=== PATIENT | female | born 1950 | race Hispanic/Latino ===

== ENCOUNTER 2018-01-26 08:41 | Day surgery (SDC) | payer MEDICARE ==
[2018-01-26] MEDS ORDERED: NACL 0.9% 1000 ML 1,000 ML IV SCH (10:00)
[2018-01-26] MEDS ORDERED: DIPRIVAN 10 MG/ML IV ONE (12:35)
--- NOTE | 2018-01-26 12:57 | Short Stay Summary ---
Short Stay Documentation Date of service: 01/26/18 Narrative H&P: The patient presents for EGD for evaluation of an abnormal CT scan revealing antral thickening and cirrhosis of the liver - History Past Medical History: arthritis, diabetes, hypertension, liver disease Past Surgical History: tonsillectomy, PTCA (tubal ligation) Social history: no significant social history, , lives with family, no smoking, no alcohol abuse, no prescription drug abuse - Allergies and Medications Current Medications: Allergies No Known Allergies Allergy (Verified 01/26/18 09:53) Home Medications Medication Instructions Recorded Confirmed Last Taken Type Lisinopril [Zestril TAB] 12.5 - 20 mg PO QDAY 11/14/14 11/14/14 01/25/18 History metFORMIN [Glucophage] 500 mg PO BID 11/14/14 11/14/14 01/25/18 History Furosemide 40 mg PO DAILY 01/26/18 01/26/18 01/25/18 History Januvia 50 mg PO DAILY 01/26/18 01/26/18 01/25/18 History Magnesium 25 mg PO DAILY 01/26/18 01/26/18 01/25/18 History Potassium 20 meq PO DAILY 01/26/18 01/26/18 01/25/18 History Vitamin D3 250 mg PO BID 01/26/18 01/26/18 01/25/18 History Active Medications Sodium Chloride (Nacl 0.9% 1000 Ml) 1,000 mls @ 50 mls/hr IV DIRECT CASTILLO Last Admin: 01/26/18 10:27 Dose: 50 mls/hr - Physical exam General appearance: no acute distress, well-nourished, obese Integumentary: no rash, no growths, no abnormal pigmentation HEENT: Atraumatic, PERRLA, EOMI, Mucous membr. moist/pink Lungs: Clear to auscultation, Normal air movement Breasts: deferred Heart: Regular rate, Normal S1, Normal S2, No murmurs Gastrointestinal: normoactive bowel sounds, tenderness, distended (1-2 plus ascites), no masses, no guarding, no hepatomegaly, no splenomegaly, obese Female Genitourinary: deferred Rectal Exam: deferred Extremities: no ischemia, pulses intact, pulses symmetrical, normal temperature , normal color, Full ROM, abnormal (2 plus pitting edema bilaterally) Neurological: Normal gait, Normal speech, Strength at 5/5 X4 ext, Normal tone, Sensation intact, Cranial nerves 3-12 NL - Brief post op/procedure progress note Date of procedure: 01/26/18 Findings: see dictation Estimated blood loss: none Pathology: list (antral biopsies for h.pylori) Specimen disposition: to lab Condition: stable - Disposition Condition at discharge: Good Disposition: DC-01 TO HOME OR SELFCARE - Discharge Diagnoses (1) Abnormal CT of the abdomen Status: Acute (2) Cirrhosis of liver Status: Acute Short Stay Discharge Plan Activity: other (no driving for 24 hours) Weight Bearing Status: Weight Bear as Tolerated Diet: low salt Follow up with: ADITHYA FINE PA [Primary Care Provider] - 7 Days Prescriptions: Omeprazole 40 mg PO DAILY #30 capsule.
--- NOTE | 2018-01-26 13:04 | Operative Report ---
Operative Report Operative Report: Date of procedure: 01/26/2018 Procedure: Esophagogastroduodenoscopy with antral biopsies for H. pylori Preprocedure diagnosis: Abnormal CT scan of the abdomen revealing a thickened antrum, cirrhosis and ascites. Post procedure diagnosis: Fairly severe erosive gastritis. Mild erosive duodenitis. 3+ esophageal varices. Endoscopist: Dr. Huang Anesthesia: Monitored anesthesia care per anesthesia department Medications: Propofol per anesthesia Estimated blood loss: Scant After careful discussion of the nature and purpose of the procedure as well as details the technique risks benefits and alternatives consent was obtained. The patient was placed in the left lateral decubitus position and medicated per anesthesia. The tip of the [employer] EQ 570 video scope was passed per orum under direct vision into the esophagus and advanced into the stomach and descending duodenum. The descending duodenum and the duodenal bulb revealed scattered erosions. The pylorus was symmetrical and normal. The scope was withdrawn into the stomach and the stomach then gently insufflated with air. The antrum revealed severe background inflammation and multiple erosions. 2 biopsies were taken in the prepyloric area for H. pylori testing. The stomach was further insufflated and the scope was then retroflexed and partially withdrawn. The cardia, fundus, and body of the stomach were within normal limits and easily distensible. There were no varices in the cardia or fundus. The scope was then withdrawn in the forward position. The esophagogastric junction was at 40 cm. The distal esophagus revealed 3+ varices. No stigmata of recent bleeding. The procedure was was well tolerated and the patient was observed in recovery. Impressions: 3+ esophageal varices. Severe erosive antral gastritis. Mild erosive duodenitis. Plan: Await pathology for H. pylori. Begin omeprazole. She will need repeat endoscopy for banding of varices at some point which was not discussed prior to this endoscopy. Office follow-up in the next 2 weeks to discuss the status of her liver disease. Electronically signed: Aj Huang MD
--- NOTE | 2018-01-26 13:06 | Anesthesia Consultation ---
Anesthesia Consult and Med Hx Date of service: 01/26/18 - Airway Anesthetic Teeth Evaluation: Good ROM Head & Neck: Adequate Mental/Hyoid Distance: Adequate Mallampati Class: Class II Intubation Access Assessment: Probably Good - Pulmonary Exam CTA: Yes - Cardiac Exam Cardiac Exam: RRR - Pre-Operative Health Status ASA Pre-Surgery Classification: ASA3 Proposed Anesthetic Plan: MAC - Cardiovascular System Hx Hypertension: Yes - Gastrointestinal Hx Gastroesophageal Reflux Disease: Yes - Endocrine Hx Cirrhosis: Yes Hx Liver Disease: Yes Hx Insulin Dependent Diabetes: Yes (insulin pump ) - Hematic Hx Anemia: Yes
--- NOTE | 2018-01-26 13:07 | Anesthesia Day of Surgery ---
Anesthesia Day of Surgery - Day of Surgery Patient Examined: Yes Patient H&P Reviewed: Yes Patient is NPO: Yes
[2018-01-26 14:18] VITALS: BP 142/76
== END 2018-01-26 08:42 | disposition home or self-care (01) ==
LOC: GIO 08:41
PROVIDERS: ATTEND Internal Medicine Gastroenterology
DX: K29.50 Unspecified chronic gastritis without bleeding (principal); K70.31 Alcoholic cirrhosis of liver with ascites; K29.80 Duodenitis without bleeding; I85.00 Esophageal varices without bleeding; M19.90 Unspecified osteoarthritis, unspecified site; I10 Essential (primary) hypertension; K21.9 Gastro-esophageal reflux disease without esophagitis; E11.01 Type 2 diabetes mellitus with hyperosmolarity with coma; E66.9 Obesity, unspecified; Z68.32 Body mass index [BMI] 32.0-32.9, adult; Z91.19 Patient's noncompliance with other medical treatment and regimen; Z79.84 Long term (current) use of oral hypoglycemic drugs; Z90.49 Acquired absence of other specified parts of digestive tract; Z98.51 Tubal ligation status; Z86.2 Personal history of diseases of the blood and blood-forming organs and certain disorders involving the immune mechanism; Z79.899 Other long term (current) drug therapy; Z98.890 Other specified postprocedural states
CPT/HCPCS: 43239; 82962; 88305; 88342; J2704; J7030

== ENCOUNTER 2018-05-06 09:44 | Day surgery (SDC) | payer MEDICARE ==
[2018-05-06 11:04] LABS: INR 1.06 (0.87-1.13); Partial Thromboplastin Time 27.8 Sec. (24.2-36.6)
[2018-05-06] MEDS ORDERED: XYLOCAINE 1% 20 mL ONE (11:44)
[2018-05-06] MEDS ORDERED: ALBURX 25% (ALBUMIN) IV PRN (11:57)
--- NOTE | 2018-05-06 11:57 | Short Stay Summary ---
Short Stay Documentation Date of service: 05/06/18 - History Principal diagnosis: ascites H&P: obtained from office Past Medical History: liver disease - Allergies and Medications Current Medications: Allergies No Known Allergies Allergy (Verified 01/26/18 09:53) Home Medications Medication Instructions Recorded Confirmed Last Taken Type Furosemide 40 mg PO DAILY 01/26/18 05/06/18 05/06/18 06:30 History Januvia 50 mg PO DAILY 01/26/18 05/06/18 05/06/18 06:30 History Famotidine [Pepcid] 20 mg PO DAILY #30 tablet 03/14/18 05/06/18 05/06/18 06:30 Rx Prochlorperazine [Compazine] 10 mg PO Q6H PRN #20 tablet 03/14/18 05/06/18 Unknown Rx Spironolactone 25 mg PO DAILY #30 tablet 03/14/18 05/06/18 04/29/18 06:30 Rx - Physical exam General appearance: no acute distress Gastrointestinal: distended - Brief post op/procedure progress note Date of procedure: 05/06/18 Pre-op diagnosis: ascites Post-op diagnosis: same Procedure: US paracentesis Anesthesia: local Findings: large ascites Surgeon: KAYE BROWN Pathology: none Specimen disposition: discarded Condition: stable - Disposition Condition at discharge: Good Disposition: -01 TO HOME OR SELFCARE Short Stay Discharge Plan Follow up with: PRIMARY CARE, [Primary Care Provider] - 7 Days
--- NOTE | 2018-05-06 13:24 | Ultrasound Report ---
ULTRASOUND PARACENTESIS HISTORY: Ascites. DESCRIPTION OF PROCEDURE: A time out was performed. Informed consent was obtained. Sterile technique was utilized. Using ultrasound guidance, a 5 Croatian centesis needle was advanced into the peritoneal space. There was spontaneous return of clear yellow fluid. 14 L of fluid was drained. 120 cc of fluid was sent to laboratory for analysis. No complications. IMPRESSION: Successful ultrasound-guided paracentesis.
[2018-05-06 15:34] VITALS: BP 137/62
== END 2018-05-06 16:21 | disposition home or self-care (01) ==
LOC: CATHLABREC 09:44
PROVIDERS: ATTEND Internal Medicine Gastroenterology
DX: R18.8 Other ascites (principal); K21.9 Gastro-esophageal reflux disease without esophagitis; I10 Essential (primary) hypertension; E11.9 Type 2 diabetes mellitus without complications; D64.9 Anemia, unspecified; Z79.899 Other long term (current) drug therapy; Z98.51 Tubal ligation status; Z96.41 Presence of insulin pump (external) (internal); Z98.890 Other specified postprocedural states
CPT/HCPCS: 36415; 49083; 85610; 85730; 96365; P9047

== ENCOUNTER 2018-05-21 07:45 | Day surgery (SDC) | payer MEDICARE ==
[2018-05-21] MEDS ORDERED: XYLOCAINE 1% 20 mL ONE (10:47)
--- NOTE | 2018-05-21 13:02 | Ultrasound Report ---
ULTRASOUND-GUIDED PARACENTESIS INDICATION: Ascites. COMPARISON: 05/06/2018. FINDINGS: After explaining the risk and benefits to the patient, written informed consent obtained. Using ultrasound guidance, an appropriate skin site in the right lower quadrant marked. Skin prepped and draped in the usual sterile fashion. 1% Xylocaine used for local anesthesia. Using ultrasound guidance, a 5 Emirati Yueh catheter was placed into the fluid collection and 15.9 L of straw-colored fluid aspirated. No sample sent to laboratory. Catheter removed and hemostasis achieved. Patient tolerated the procedure well and left the radiology department in stable condition. CONCLUSION: Ultrasound guided paracentesis, as described above. Post procedure IV albumin to be given. Dr. Love present for and performed the entire procedure. Thank you for the opportunity to participate in this patient's care.
[2018-05-21] MEDS ORDERED: ALBURX 25% (ALBUMIN) IV ONE (13:30)
[2018-05-23 11:46] VITALS: BP 142/65
== END 2018-05-21 15:30 | disposition home or self-care (01) ==
LOC: CATHLABREC 07:45 → EDSTATUS 09:00 → CATHLABREC 15:30
PROVIDERS: ATTEND Internal Medicine Gastroenterology
DX: K70.31 Alcoholic cirrhosis of liver with ascites (principal); K75.81 Nonalcoholic steatohepatitis (NASH); I85.00 Esophageal varices without bleeding; E11.01 Type 2 diabetes mellitus with hyperosmolarity with coma; I10 Essential (primary) hypertension; K21.9 Gastro-esophageal reflux disease without esophagitis; Z98.51 Tubal ligation status; Z98.890 Other specified postprocedural states; Z79.899 Other long term (current) drug therapy; Z91.19 Patient's noncompliance with other medical treatment and regimen; Z90.49 Acquired absence of other specified parts of digestive tract; Z86.2 Personal history of diseases of the blood and blood-forming organs and certain disorders involving the immune mechanism
CPT/HCPCS: 49083; 96365; 96366; P9047

== ENCOUNTER 2018-06-10 11:51 | Day surgery (SDC) | payer MEDICARE ==
[2018-06-10 12:40] LABS: INR 0.95 (0.87-1.13)
[2018-06-10 12:41] LABS: Partial Thromboplastin Time 27.7 Sec. (24.2-36.6)
[2018-06-10] MEDS ORDERED: ALBURX 25% (ALBUMIN) IV PRN (14:16)
--- NOTE | 2018-06-10 14:16 | Short Stay Summary ---
Short Stay Documentation Date of service: 06/10/18 - History Principal diagnosis: ascites Past Medical History: liver disease, renal failure - Allergies and Medications Current Medications: Allergies No Known Allergies Allergy (Verified 01/26/18 09:53) Home Medications Medication Instructions Recorded Confirmed Last Taken Type Furosemide 40 mg PO DAILY 01/26/18 06/10/18 06/10/18 08:00 History Januvia 50 mg PO DAILY 01/26/18 06/10/18 06/09/18 History 50mg Famotidine [Pepcid] 20 mg PO DAILY #30 tablet 03/14/18 06/10/18 06/10/18 08:00 Rx Spironolactone 25 mg PO DAILY #30 tablet 03/14/18 06/10/18 06/10/18 08:00 Rx - Physical exam General appearance: no acute distress Gastrointestinal: distended - Brief post op/procedure progress note Date of procedure: 06/10/18 Pre-op diagnosis: ascites Post-op diagnosis: same Procedure: US paracentesis Anesthesia: local Findings: large ascites Surgeon: KAYE BROWN Estimated blood loss: none Pathology: none Specimen disposition: discarded Condition: stable - Disposition Condition at discharge: Good Disposition: DC-01 TO HOME OR SELFCARE Short Stay Discharge Plan Follow up with: ADITHYA FINE PA [Primary Care Provider] - 7 Days
[2018-06-10 17:11] VITALS: BP 156/71
--- NOTE | 2018-06-11 10:33 | Ultrasound Report ---
ULTRASOUND PARACENTESIS HISTORY: Ascites. DESCRIPTION OF PROCEDURE: A time out was performed. Informed consent was obtained. Sterile technique was utilized. Using ultrasound guidance, a 5 Setswana centesis needle was advanced into the peritoneal space. There was spontaneous return of clear yellow fluid. 15.9 L of fluid was drained. 120 cc of fluid was sent to laboratory for analysis. No complications. IMPRESSION: Successful ultrasound-guided paracentesis.
== END 2018-06-10 11:52 | disposition home or self-care (01) ==
LOC: CATHLABREC 11:51 → EDSTATUS 13:30
PROVIDERS: ATTEND Internal Medicine Gastroenterology
DX: R18.8 Other ascites (principal); K74.60 Unspecified cirrhosis of liver; K75.81 Nonalcoholic steatohepatitis (NASH); I85.00 Esophageal varices without bleeding; E11.01 Type 2 diabetes mellitus with hyperosmolarity with coma; I10 Essential (primary) hypertension; K21.9 Gastro-esophageal reflux disease without esophagitis; Z98.890 Other specified postprocedural states; Z98.51 Tubal ligation status; Z79.899 Other long term (current) drug therapy; Z91.19 Patient's noncompliance with other medical treatment and regimen; Z86.2 Personal history of diseases of the blood and blood-forming organs and certain disorders involving the immune mechanism
CPT/HCPCS: 36415; 49083; 85610; 85730; 96365; P9047

== ENCOUNTER 2018-06-22 06:47 | Day surgery (SDC) | payer MEDICARE ==
--- NOTE | 2018-05-21 15:45 | Short Stay Summary ---
Short Stay Documentation Date of service: 05/21/18 - History Principal diagnosis: Cirrhosis Past Medical History: liver disease - Allergies and Medications Current Medications: Allergies No Known Allergies Allergy (Verified 01/26/18 09:53) Home Medications Medication Instructions Recorded Confirmed Last Taken Type Furosemide 40 mg PO DAILY 01/26/18 05/06/18 05/21/18 History Januvia 50 mg PO DAILY 01/26/18 05/06/18 05/20/18 History Famotidine [Pepcid] 20 mg PO DAILY #30 tablet 03/14/18 05/21/18 05/21/18 Rx Prochlorperazine [Compazine] 10 mg PO Q6H PRN #20 tablet 03/14/18 05/21/18 Unknown Rx Spironolactone 25 mg PO DAILY #30 tablet 03/14/18 05/21/18 05/19/18 Rx - Physical exam General appearance: no acute distress Gastrointestinal: distended - Brief post op/procedure progress note Date of procedure: 05/21/18 Pre-op diagnosis: Ascites Post-op diagnosis: same Procedure: US guided paracentesis Anesthesia: local Findings: 15.9 L of yellow serous fluid removed. Surgeon: CARRILLO SNELL Estimated blood loss: none Specimen disposition: discarded Condition: stable - Disposition Condition at discharge: Good Disposition: DC-01 TO HOME OR SELFCARE Short Stay Discharge Plan Follow up with: PRIMARY CARE, [Primary Care Provider] - 7 Days
--- NOTE | 2018-06-22 08:24 | Anesthesia Day of Surgery ---
Anesthesia Day of Surgery - Day of Surgery Patient Examined: Yes Patient H&P Reviewed: Yes Patient is NPO: Yes Beta Blockers: No Cardiac Clearance: No Pulmonary Clearance: No
--- NOTE | 2018-06-22 08:25 | Anesthesia Consultation ---
Anesthesia Consult and Med Hx Date of service: 06/22/18 - Airway Anesthetic Teeth Evaluation: Good ROM Head & Neck: Adequate Mental/Hyoid Distance: Adequate Mallampati Class: Class III Intubation Access Assessment: Good - Pulmonary Exam CTA: No - Cardiac Exam Cardiac Exam: RRR - Pre-Operative Health Status ASA Pre-Surgery Classification: ASA3 Proposed Anesthetic Plan: MAC - Cardiovascular System Hx Hypertension: Yes - Central Nervous System Hx Psychiatric Problems: No - Gastrointestinal Hx Gastroesophageal Reflux Disease: Yes - Endocrine Hx Renal Disease: Yes Hx Cirrhosis: Yes Hx Liver Disease: Yes Hx Insulin Dependent Diabetes: Yes (insulin pump ) - Hematic Hx Anemia: Yes - Other Systems Hx Obesity: Yes
[2018-06-22] MEDS ORDERED: DIPRIVAN 10 MG/ML IV ONE ×2 (08:31)
[2018-06-22] MEDS ORDERED: XYLOCAINE 2% INFILTRATI ONE (08:32)
[2018-06-22] MEDS ORDERED: VERSED ONE (08:36)
[2018-06-22] MEDS ORDERED: NACL 0.9% 1000 ML 1,000 ML IV SCH (09:00)
--- NOTE | 2018-06-22 09:10 | Short Stay Summary ---
Short Stay Documentation Date of service: 06/22/18 Narrative H&P: The patient presents for EGD and banding of known, large esophageal varices. - History Past Medical History: diabetes, hypertension, liver disease (cirrhosis with ascites and varices secondary to TYLER) Past Surgical History: No surgical history Social history: , lives with family, no smoking, no alcohol abuse - Allergies and Medications Current Medications: Allergies No Known Allergies Allergy (Verified 01/26/18 09:53) Home Medications Medication Instructions Recorded Confirmed Last Taken Type Furosemide 40 mg PO DAILY 01/26/18 06/22/18 06/22/18 History Januvia 50 mg PO DAILY 01/26/18 06/22/18 06/22/18 History Famotidine [Pepcid] 20 mg PO DAILY #30 tablet 03/14/18 06/22/18 06/22/18 Rx Spironolactone 25 mg PO DAILY #30 tablet 03/14/18 06/22/18 06/22/18 Rx Januvia 50 mg PO DAILY 06/22/18 06/22/18 06/22/18 History Active Medications Sodium Chloride (Nacl 0.9% 1000 Ml) 1,000 mls @ 50 mls/hr IV DIRECT CASTILLO Last Admin: 06/22/18 08:31 Dose: 50 mls/hr Documented by: - Physical exam General appearance: no acute distress, well-nourished Integumentary: no rash, no growths, no abnormal pigmentation HEENT: Atraumatic, PERRLA, EOMI, Mucous membr. moist/pink Lungs: Clear to auscultation, Normal air movement Breasts: deferred Heart: Regular rate, Normal S1, Normal S2, No murmurs, Murmur, Gallops Gastrointestinal: no tenderness, no masses, no guarding, no organomegaly, no hepatomegaly, no splenomegaly, obese, other (probable 1-2 plus ascites.) Female Genitourinary: deferred Rectal Exam: deferred Extremities: no ischemia, pulses intact, pulses symmetrical, No edema, normal temperature, normal color, Full ROM Neurological: Normal gait, Normal speech, Strength at 5/5 X4 ext, Normal tone, Sensation intact, Cranial nerves 3-12 NL, Reflexes 2+ - Brief post op/procedure progress note Date of procedure: 06/22/18 Procedure: see dictated report Findings: see dictated report Estimated blood loss: none Pathology: none - Disposition Condition at discharge: Good Disposition: DC-01 TO HOME OR SELFCARE Short Stay Discharge Plan Activity: other (no driving for 24 hours) Weight Bearing Status: Full Weight Bearing Diet: low salt Follow up with: PRIMARY CARE, [Referring] - 7 Days
--- NOTE | 2018-06-22 09:14 | Operative Report ---
Operative Report Operative Report: Date of procedure: 06/22/2018 Procedure: Esophagogastroduodenoscopy with banding of esophageal varices Preprocedure diagnosis: Known esophageal varices, cirrhosis secondary to Zamor[place] Post procedure diagnosis: 3+ esophageal varices. Submucosal mass in the prepyloric antrum versus extrinsic compression Endoscopist: Dr. Huang Anesthesia: Monitored anesthesia care per anesthesia department Medications: Propofol per anesthesia Estimated blood loss: 0 After careful discussion of the nature and purpose of the procedure as well as details the technique risks benefits and alternatives consent was obtained. The patient was placed in the left lateral decubitus position and medicated per anesthesia. The tip of the [employer] EQ 570 video scope was passed per orum under direct vision into the esophagus and advanced into the stomach and descending duodenum. The descending duodenum the duodenal bulb and pylorus were symmetrical and normal. The scope was withdrawn into the stomach and the stomach then gently insufflated with air. The antrum revealed a 3 cm submucosal extrinsic impression versus submucosal mass. The stomach was further insufflated and the scope was then retroflexed and partially withdrawn. The cardia, fundus, and body of the stomach were within normal limits and easily distensible, there were no varices in the cardia. The scope was then withdrawn in the forward position. The esophagogastric junction was at 36 cm. There were 3+ varices in the distal esophagus with no stigmata of bleeding. Proximal esophagus was normal. The scope was transiently withdrawn and the banding device loaded. The scope was then reintroduced per orum under direct vision and advanced distally into the esophagus. 4 bands were placed circumferentially in the distal esophagus within 3 cm of the esophagogastric junction. No bleeding was encountered. The procedure was was well tolerated and the patient was observed in recovery. Impressions: 3+ distal esophageal varices. Status post banding 4. Extrinsic compression versus submucosal mass in the antrum. Plan: Repeat endoscopy in 2-3 months. Abdominal imaging by CT or MRI. Office follow-up next week. Electronically signed: Aj Huang MD
[2018-06-22 15:04] VITALS: BP 151/81
== END 2018-06-22 06:48 | disposition home or self-care (01) ==
LOC: GIO 06:47
PROVIDERS: ATTEND Internal Medicine Gastroenterology
DX: I85.00 Esophageal varices without bleeding (principal); K74.60 Unspecified cirrhosis of liver; K75.81 Nonalcoholic steatohepatitis (NASH); I10 Essential (primary) hypertension; E11.9 Type 2 diabetes mellitus without complications; K21.9 Gastro-esophageal reflux disease without esophagitis; E66.9 Obesity, unspecified; Z68.34 Body mass index [BMI] 34.0-34.9, adult; Z79.899 Other long term (current) drug therapy; Z98.890 Other specified postprocedural states; Z98.51 Tubal ligation status; Z86.2 Personal history of diseases of the blood and blood-forming organs and certain disorders involving the immune mechanism
CPT/HCPCS: 43244; 82962; J2250; J2704; J7030

== ENCOUNTER 2018-06-28 06:36 | Day surgery (SDC) | payer MEDICARE ==
--- NOTE | 2018-06-28 09:25 | Short Stay Summary ---
Short Stay Documentation Date of service: 06/28/18 - History Principal diagnosis: ascites Past Medical History: liver disease - Allergies and Medications Current Medications: Allergies No Known Allergies Allergy (Verified 01/26/18 09:53) Home Medications Medication Instructions Recorded Confirmed Last Taken Type Furosemide 40 mg PO DAILY 01/26/18 06/28/18 06/28/18 05:45 History Januvia 50 mg PO DAILY 01/26/18 06/28/18 06/28/18 05:45 History 50mg Famotidine [Pepcid] 20 mg PO DAILY #30 tablet 03/14/18 06/28/18 06/22/18 Rx Spironolactone 25 mg PO DAILY #30 tablet 03/14/18 06/28/18 06/28/18 05:45 Rx 25mg - Physical exam General appearance: no acute distress Gastrointestinal: distended - Brief post op/procedure progress note Date of procedure: 06/28/18 Pre-op diagnosis: ascites Post-op diagnosis: same Procedure: US paracentesis Anesthesia: local Findings: large ascites Surgeon: KAYE BROWN Estimated blood loss: none Pathology: none Specimen disposition: discarded Condition: stable - Hospital course Hospital course: uneventful - Disposition Condition at discharge: Good Disposition: DC-01 TO HOME OR SELFCARE Short Stay Discharge Plan Follow up with: ADITHYA FINE PA [Primary Care Provider] - 7 Days
[2018-06-28] MEDS ORDERED: ALBURX 25% (ALBUMIN) IV PRN (10:00)
--- NOTE | 2018-06-28 10:12 | Ultrasound Report ---
ULTRASOUND PARACENTESIS HISTORY: Ascites. DESCRIPTION OF PROCEDURE: A time out was performed. Informed consent was obtained. Sterile technique was utilized. Using ultrasound guidance, a 5 Japanese centesis needle was advanced into the peritoneal space. There was spontaneous return of clear yellow fluid. 13.8 L of fluid was drained. No complications. IMPRESSION: Successful ultrasound-guided paracentesis.
[2018-06-28 12:33] VITALS: BP 137/66
== END 2018-06-28 12:50 | disposition home or self-care (01) ==
LOC: CATHLABREC 06:36 → EDSTATUS 07:30 → CATHLABREC 12:50
PROVIDERS: ATTEND Internal Medicine Gastroenterology
DX: R18.8 Other ascites (principal)
CPT/HCPCS: 49083; 96365; 96366; P9047

== ENCOUNTER 2018-07-14 07:07 | Day surgery (SDC) | payer MEDICARE ==
[2018-07-14 08:02] LABS: INR 0.92 (0.87-1.13); Partial Thromboplastin Time 27.6 Sec. (24.2-36.6)
[2018-07-14] MEDS ORDERED: XYLOCAINE 1% 20 mL ONE (09:20)
[2018-07-14] MEDS ORDERED: ALBURX 25% (ALBUMIN) IV PRN (10:03)
--- NOTE | 2018-07-14 10:03 | Short Stay Summary ---
Short Stay Documentation Date of service: 07/14/18 - History Principal diagnosis: ascites Past Medical History: liver disease - Allergies and Medications Current Medications: Allergies No Known Allergies Allergy (Verified 01/26/18 09:53) Home Medications Medication Instructions Recorded Confirmed Last Taken Type Furosemide 40 mg PO DAILY 01/26/18 07/14/18 07/13/18 History Januvia 50 mg PO DAILY 01/26/18 07/14/18 07/13/18 History Famotidine [Pepcid] 20 mg PO DAILY #30 tablet 03/14/18 07/14/18 07/13/18 Rx Spironolactone 25 mg PO DAILY #30 tablet 03/14/18 07/14/18 07/13/18 Rx - Physical exam General appearance: no acute distress Gastrointestinal: normoactive bowel sounds, distended - Brief post op/procedure progress note Date of procedure: 07/14/18 Pre-op diagnosis: ascites Post-op diagnosis: same Procedure: US paracentesis Anesthesia: local Findings: large ascites Surgeon: KAYE BROWN Estimated blood loss: none Pathology: none Specimen disposition: discarded Condition: stable - Disposition Condition at discharge: Good Disposition: DC-01 TO HOME OR SELFCARE - Discharge Diagnoses (1) Ascites Status: Chronic Qualifiers: Short Stay Discharge Plan Follow up with: ADITHYA FINE PA [Primary Care Provider] - 7 Days
--- NOTE | 2018-07-14 11:14 | Ultrasound Report ---
ULTRASOUND PARACENTESIS HISTORY: Ascites. DESCRIPTION OF PROCEDURE: A time out was performed. Informed consent was obtained. Sterile technique was utilized. Using ultrasound guidance, a 5 Irish centesis needle was advanced into the peritoneal space. There was spontaneous return of clear yellow fluid. 12.4 L of fluid was drained. 120 cc of fluid was sent to laboratory for analysis. No complications. IMPRESSION: Successful ultrasound-guided paracentesis.
[2018-07-14 13:29] VITALS: BP 143/65
== END 2018-07-14 13:42 | disposition home or self-care (01) ==
LOC: CATHLABREC 07:07 → EDSTATUS 07:30 → CATHLABREC 13:42
PROVIDERS: ATTEND Internal Medicine Gastroenterology
DX: K70.31 Alcoholic cirrhosis of liver with ascites (principal); E11.01 Type 2 diabetes mellitus with hyperosmolarity with coma; I10 Essential (primary) hypertension; K21.9 Gastro-esophageal reflux disease without esophagitis; E66.9 Obesity, unspecified; Z68.36 Body mass index [BMI] 36.0-36.9, adult; N28.89 Other specified disorders of kidney and ureter; Z98.51 Tubal ligation status; Z79.899 Other long term (current) drug therapy; Z91.19 Patient's noncompliance with other medical treatment and regimen; Z98.890 Other specified postprocedural states; Z86.2 Personal history of diseases of the blood and blood-forming organs and certain disorders involving the immune mechanism
CPT/HCPCS: 36415; 49083; 85610; 85730; 96365; P9047

== ENCOUNTER 2018-08-03 06:54 | Day surgery (SDC) | payer MEDICARE ==
[2018-08-03] MEDS ORDERED: XYLOCAINE 1% 20 mL ONE (09:12)
[2018-08-03] MEDS ORDERED: ALBURX 25% (ALBUMIN) IV PRN (10:24)
--- NOTE | 2018-08-03 10:24 | Short Stay Summary ---
Short Stay Documentation Date of service: 08/03/18 - History Principal diagnosis: ascites Past Medical History: liver disease, renal failure - Allergies and Medications Current Medications: Allergies No Known Allergies Allergy (Verified 01/26/18 09:53) Home Medications Medication Instructions Recorded Confirmed Last Taken Type Furosemide 40 mg PO DAILY 01/26/18 08/03/18 08/01/18 History 1 tab Januvia 50 mg PO DAILY 01/26/18 08/03/18 08/02/18 History 1 tab Famotidine [Pepcid] 20 mg PO DAILY #30 tablet 03/14/18 08/03/18 08/02/18 Rx 1 tab Spironolactone 25 mg PO DAILY #30 tablet 03/14/18 08/03/18 08/02/18 Rx 1 tab - Physical exam General appearance: no acute distress Gastrointestinal: distended - Brief post op/procedure progress note Date of procedure: 08/03/18 Pre-op diagnosis: ascites Post-op diagnosis: same Procedure: US guided paracentesis Anesthesia: local Findings: large ascites Surgeon: KAYE BROWN Estimated blood loss: none Pathology: none Specimen disposition: discarded Condition: stable - Hospital course Hospital course: uneventful - Disposition Condition at discharge: Good Disposition: DC-01 TO HOME OR SELFCARE Short Stay Discharge Plan Follow up with: ADITHYA FINE PA [Primary Care Provider] - 7 Days
--- NOTE | 2018-08-03 11:45 | Ultrasound Report ---
ULTRASOUND PARACENTESIS HISTORY: Ascites. DESCRIPTION OF PROCEDURE: A time out was performed. Informed consent was obtained. Sterile technique was utilized. Using ultrasound guidance, a 5 Tajik centesis needle was advanced into the peritoneal space. There was spontaneous return of clear yellow fluid. 15.7 L of fluid was drained. No complications. IMPRESSION: Successful ultrasound-guided paracentesis.
[2018-08-03 20:30] VITALS: BP 132/87
== END 2018-08-03 06:55 | disposition home or self-care (01) ==
LOC: CATHLABREC 06:54 → EDSTATUS 07:30
PROVIDERS: ATTEND Student in an Organized Health Care Education/Training Program
DX: K70.31 Alcoholic cirrhosis of liver with ascites (principal); E11.01 Type 2 diabetes mellitus with hyperosmolarity with coma; I10 Essential (primary) hypertension; K21.9 Gastro-esophageal reflux disease without esophagitis; E66.9 Obesity, unspecified; Z79.899 Other long term (current) drug therapy; Z91.19 Patient's noncompliance with other medical treatment and regimen; Z98.890 Other specified postprocedural states; Z68.39 Body mass index [BMI] 39.0-39.9, adult; Z98.51 Tubal ligation status; Z86.2 Personal history of diseases of the blood and blood-forming organs and certain disorders involving the immune mechanism
CPT/HCPCS: 49083; 96365; 96366; P9047

== ENCOUNTER 2018-09-14 07:14 | Day surgery (SDC) | payer MEDICARE ==
--- NOTE | 2018-09-14 10:00 | Short Stay Summary ---
Short Stay Documentation Date of service: 09/14/18 - History Principal diagnosis: ascites Past Medical History: liver disease - Allergies and Medications Current Medications: Allergies No Known Allergies Allergy (Verified 01/26/18 09:53) Home Medications Medication Instructions Recorded Confirmed Last Taken Type Januvia 50 mg PO DAILY 01/26/18 09/14/18 09/13/18 History 50mg Famotidine [Pepcid] 20 mg PO DAILY #30 tablet 03/14/18 09/14/18 09/13/18 Rx 20mg Lactulose 30 ml PO BID 08/26/18 09/14/18 09/13/18 History 30ml Lispro Insulin [Humalog] 9 units SQ AC 08/26/18 09/14/18 09/13/18 History 9units Rifaximin [Xifaxan] 550 mg PO BID 08/26/18 09/14/18 09/13/18 History 550mg - Physical exam General appearance: no acute distress Gastrointestinal: distended - Brief post op/procedure progress note Date of procedure: 09/14/18 Pre-op diagnosis: ascites Post-op diagnosis: same Procedure: US paracentesis Anesthesia: local Findings: large ascites Surgeon: KAYE BROWN Estimated blood loss: none Pathology: none Specimen disposition: discarded Condition: stable - Hospital course Hospital course: uneventful - Disposition Condition at discharge: Good Disposition: DC-01 TO HOME OR SELFCARE - Discharge Diagnoses (1) Ascites Status: Chronic Qualifiers: Ascites type: due to alcoholic cirrhosis Qualified Code(s): K70.31 - Alcoholic cirrhosis of liver with ascites Short Stay Discharge Plan Follow up with: ADITHYA FINE PA [Primary Care Provider] - 7 Days
[2018-09-14] MEDS ORDERED: ALBURX 25% (ALBUMIN) IV PRN (10:30)
--- NOTE | 2018-09-14 11:16 | Ultrasound Report ---
ULTRASOUND PARACENTESIS HISTORY: Ascites. DESCRIPTION OF PROCEDURE: A time out was performed. Informed consent was obtained. Sterile technique was utilized. Using ultrasound guidance, a 5 Kinyarwanda centesis needle was advanced into the peritoneal space. There was spontaneous return of clear yellow fluid. 10 L of fluid was drained. No complications. IMPRESSION: Successful ultrasound-guided paracentesis.
[2018-09-14 12:57] VITALS: BP 137/68
== END 2018-09-14 12:55 | disposition home or self-care (01) ==
LOC: CATHLABREC 07:14 → EDSTATUS 07:30 → CATHLABREC 12:55
PROVIDERS: ATTEND Internal Medicine Gastroenterology
DX: K70.31 Alcoholic cirrhosis of liver with ascites (principal); K75.81 Nonalcoholic steatohepatitis (NASH); I12.9 Hypertensive chronic kidney disease with stage 1 through stage 4 chronic kidney disease, or unspecified chronic kidney disease; E11.22 Type 2 diabetes mellitus with diabetic chronic kidney disease; N18.9 Chronic kidney disease, unspecified; E11.01 Type 2 diabetes mellitus with hyperosmolarity with coma; K21.9 Gastro-esophageal reflux disease without esophagitis; E66.9 Obesity, unspecified; Z94.4 Liver transplant status; Z68.41 Body mass index [BMI] 40.0-44.9, adult; Z79.899 Other long term (current) drug therapy; Z91.19 Patient's noncompliance with other medical treatment and regimen; Z98.890 Other specified postprocedural states; Z98.51 Tubal ligation status; Z80.8 Family history of malignant neoplasm of other organs or systems; Z86.2 Personal history of diseases of the blood and blood-forming organs and certain disorders involving the immune mechanism
CPT/HCPCS: 49083; 96365; P9047

== ENCOUNTER 2018-10-05 07:33 | Day surgery (SDC) | payer MEDICARE ==
[2018-10-05 09:06] LABS: INR 1.79 (0.87-1.13)
[2018-10-05] MEDS ORDERED: ALBURX 25% (ALBUMIN) IV PRN (11:11)
--- NOTE | 2018-10-05 11:11 | Short Stay Summary ---
Short Stay Documentation Date of service: 10/05/18 - History Principal diagnosis: ascites Past Medical History: liver disease, renal failure - Allergies and Medications Current Medications: Allergies No Known Allergies Allergy (Verified 01/26/18 09:53) Home Medications Medication Instructions Recorded Confirmed Last Taken Type Januvia 50 mg PO DAILY 01/26/18 10/05/18 10/04/18 History 50mg Famotidine [Pepcid] 20 mg PO DAILY #30 tablet 03/14/18 10/05/18 10/04/18 Rx 20mg Lactulose 30 ml PO BID 08/26/18 10/05/18 10/04/18 History 30ml Lispro Insulin [Humalog] 9 units SQ AC 08/26/18 10/05/18 10/04/18 History 9 units Rifaximin [Xifaxan] 550 mg PO BID 08/26/18 10/05/18 10/04/18 History 550mg - Physical exam General appearance: no acute distress Gastrointestinal: distended - Brief post op/procedure progress note Date of procedure: 10/05/18 Pre-op diagnosis: ascites Post-op diagnosis: same Procedure: US paracentesis Anesthesia: local Findings: large ascites Surgeon: KAYE BROWN Estimated blood loss: none Pathology: none Specimen disposition: discarded Condition: stable - Hospital course Hospital course: uneventful - Disposition Condition at discharge: Good Disposition: DC-01 TO HOME OR SELFCARE Short Stay Discharge Plan Follow up with: ADITHYA FINE PA [Primary Care Provider] - 7 Days
--- NOTE | 2018-10-05 11:38 | Ultrasound Report ---
ULTRASOUND PARACENTESIS HISTORY: Ascites. DESCRIPTION OF PROCEDURE: A time out was performed. Informed consent was obtained. Sterile technique was utilized. Using ultrasound guidance, a 5 Occitan centesis needle was advanced into the peritoneal space. There was spontaneous return of clear yellow fluid. 10.3 L of fluid was drained. No complications. IMPRESSION: Successful ultrasound-guided paracentesis.
[2018-10-05 13:35] VITALS: BP 144/62
== END 2018-10-05 13:45 | disposition home or self-care (01) ==
LOC: CATHLABREC 07:33 → EDSTATUS 09:00 → CATHLABREC 13:45
PROVIDERS: ATTEND Internal Medicine Gastroenterology
DX: K70.31 Alcoholic cirrhosis of liver with ascites (principal); E11.01 Type 2 diabetes mellitus with hyperosmolarity with coma; I10 Essential (primary) hypertension; K21.9 Gastro-esophageal reflux disease without esophagitis; E66.9 Obesity, unspecified; Z68.41 Body mass index [BMI] 40.0-44.9, adult; Z98.51 Tubal ligation status; Z79.899 Other long term (current) drug therapy; Z98.890 Other specified postprocedural states; Z80.8 Family history of malignant neoplasm of other organs or systems; Z86.2 Personal history of diseases of the blood and blood-forming organs and certain disorders involving the immune mechanism
CPT/HCPCS: 36415; 49083; 85610; 85730; 96365; P9047

== ENCOUNTER 2018-10-19 07:26 | Day surgery (SDC) | payer MEDICARE ==
[2018-10-19 09:21] LABS: Calcium 7.9 mg/dL (8.4-10.2)
[2018-10-19 09:26] LABS: INR 1.41 (0.87-1.13); Partial Thromboplastin Time 29.3 Sec. (24.2-36.6)
[2018-10-19] MEDS ORDERED: ALBURX 25% (ALBUMIN) IV PRN (10:26)
[2018-10-19 12:19] LABS: Albumin 2.2 g/dL (3.9-5)
[2018-10-19 13:04] VITALS: BP 143/67
--- NOTE | 2018-10-19 15:23 | Ultrasound Report ---
Ultrasound-guided paracentesis HISTORY: ascites. PROCEDURE: The risks (including but not limited to bleeding, infection, and bowel injury) and benefi ts were explained to the patient and informed consent was obtained. A time out procedure was perform ed. Ultrasound was used to evaluate the abdomen and locate the largest ascites fluid pocket. Once the sk in was marked, the procedure site was prepped and draped in the usual sterile fashion and lidocaine w as used for local anesthesia. A skin antelmo was made and a 6-Nicaraguan paracentesis catheter was placed. The patient was monitored closely throughout the procedure, and a total of 10,800 mL of straw-colore d fluid was aspirated. Samples were sent to the lab for further evaluation per the clinician oncology s orders. The patient tolerated the procedure well with no complications. IMPRESSION: Successful paracentesis as above with a total of 10,800 mL of straw-colored fluid aspirat ed. Signer Name: Richard Crespo MD Signed: 10/19/2018 2:18 PM Workstation Name: [id number]
[2018-10-19 15:53] LABS: Total Cells Counted 100 /mm3
== END 2018-10-19 13:05 | disposition home or self-care (01) ==
LOC: CATHLABREC 07:26 → EDSTATUS 09:00 → CATHLABREC 13:05
PROVIDERS: ATTEND Internal Medicine Gastroenterology
DX: K70.31 Alcoholic cirrhosis of liver with ascites (principal); E11.01 Type 2 diabetes mellitus with hyperosmolarity with coma; I10 Essential (primary) hypertension; K21.9 Gastro-esophageal reflux disease without esophagitis; D64.9 Anemia, unspecified; E66.9 Obesity, unspecified; Z68.41 Body mass index [BMI] 40.0-44.9, adult; Z98.51 Tubal ligation status; Z80.8 Family history of malignant neoplasm of other organs or systems; Z79.899 Other long term (current) drug therapy; Z79.4 Long term (current) use of insulin; Z98.890 Other specified postprocedural states
CPT/HCPCS: 36415; 49083; 80048; 80076; 85610; 85730; 87116; 89051; 96365; P9047

== ENCOUNTER 2018-11-02 07:32 | Day surgery (SDC) | payer MEDICARE ==
[2018-11-02 09:06] LABS: INR 1.2 (0.87-1.13)
[2018-11-02] MEDS ORDERED: ALBURX 25% (ALBUMIN) IV PRN (11:56)
--- NOTE | 2018-11-02 11:56 | Short Stay Summary ---
Short Stay Documentation Date of service: 11/02/18 Narrative H&P: liver disease with ascites - History Principal diagnosis: ascites Past Medical History: liver disease Past Surgical History: Other (TIPS) Social history: - Allergies and Medications Current Medications: Allergies No Known Allergies Allergy (Verified 01/26/18 09:53) Home Medications Medication Instructions Recorded Confirmed Last Taken Type Januvia 50 mg PO DAILY 01/26/18 11/02/18 11/01/18 History 50mg Famotidine [Pepcid] 20 mg PO DAILY #30 tablet 03/14/18 11/02/18 11/01/18 Rx 20mg Lactulose 30 ml PO BID 08/26/18 11/02/18 11/01/18 History 30ml Lispro Insulin [Humalog] 9 units SQ AC 08/26/18 11/02/18 11/01/18 History 9 units Rifaximin [Xifaxan] 550 mg PO BID 08/26/18 11/02/18 11/01/18 History 550mg Furosemide [Lasix TAB] 40 mg PO QDAY 10/19/18 11/02/18 11/01/18 History 50mg - Physical exam General appearance: no acute distress Gastrointestinal: distended - Brief post op/procedure progress note Date of procedure: 11/02/18 Pre-op diagnosis: ascites Post-op diagnosis: same Procedure: US paracentesis Anesthesia: local Findings: large ascites Surgeon: KAYE BROWN Estimated blood loss: none Pathology: none Specimen disposition: discarded Condition: stable - Hospital course Hospital course: uneventful - Disposition Condition at discharge: Good Disposition: DC-01 TO HOME OR SELFCARE Short Stay Discharge Plan Follow up with: ADITHYA FINE PA [Primary Care Provider] - 7 Days
--- NOTE | 2018-11-02 12:36 | Ultrasound Report ---
ULTRASOUND-GUIDED PARACENTESIS HISTORY: ascites. Liver disease PROCEDURE: The risks (including but not limited to bleeding, infection, and bowel injury) and benefi ts were explained to the patient and informed consent was obtained. A time out procedure was perform ed. Ultrasound was used to evaluate the abdomen and locate the largest ascites fluid pocket. Once the sk in was marked, the procedure site was prepped and draped in the usual sterile fashion and lidocaine w as used for local anesthesia. A skin antelmo was made and a 6-Senegalese paracentesis catheter was placed. The patient was monitored closely throughout the procedure, and a total of 10.7 L of clear yellow fl uid was aspirated. No samples were collected for laboratory analysis per the ordering physician's re quest. The patient tolerated the procedure well with no complications. IMPRESSION: Successful paracentesis as above with a total of 10.7 L fluid aspirated. Signer Name: Ash Pollock Jr, MD Signed: 11/02/2018 12:32 PM Workstation Name: [id number]
[2018-11-02 13:10] VITALS: BP 143/65
== END 2018-11-02 13:30 | disposition home or self-care (01) ==
LOC: CATHLABREC 07:32 → EDSTATUS 09:00 → CATHLABREC 13:30
PROVIDERS: ATTEND Internal Medicine Gastroenterology
DX: R18.8 Other ascites (principal); K74.60 Unspecified cirrhosis of liver; K75.81 Nonalcoholic steatohepatitis (NASH); K72.90 Hepatic failure, unspecified without coma; E11.01 Type 2 diabetes mellitus with hyperosmolarity with coma; I10 Essential (primary) hypertension; K21.9 Gastro-esophageal reflux disease without esophagitis; E66.9 Obesity, unspecified; N28.9 Disorder of kidney and ureter, unspecified; Z79.899 Other long term (current) drug therapy; Z91.19 Patient's noncompliance with other medical treatment and regimen; Z68.41 Body mass index [BMI] 40.0-44.9, adult; Z98.51 Tubal ligation status; Z98.890 Other specified postprocedural states; Z80.8 Family history of malignant neoplasm of other organs or systems; Z86.2 Personal history of diseases of the blood and blood-forming organs and certain disorders involving the immune mechanism
CPT/HCPCS: 36415; 49083; 85610; 96365; P9047

== ENCOUNTER 2018-11-08 11:34 | Inpatient (IN) | payer MEDICARE ==
--- NOTE | 2018-11-08 11:52 | Emergency Department Report ---
Blank Doc - Documentation Documentation: This is a 68-year-old female that presents with generlized weakness and pain. Has not been taking Insulin for a few days. This initial assessment/diagnostic orders/clinical plan/treatment(s) is/are subject to change based on patient's health status, clinical progression and re- assessment by fellow clinical providers in the ED. Further treatment and workup at subsequent clinical providers discretion. Patient/guardians urged not to elope from the ED as their condition may be serious if not clinically assessed and managed. Initial orders include: 1- Patient sent to MAIN for further evaluation and treatment 2- labs 3- UA
[2018-11-08 12:49] LABS: Basophils % (Auto) 1.5 % (0.0-1.8); Hematocrit 23.5 % (30.3-42.9); Hemoglobin 8.2 gm/dl (10.1-14.3); Lymphocytes # (Auto) 0.4 K/mm3 (1.2-5.4); Lymphocytes % (Auto) 13.5 % (13.4-35.0); Mean Corpuscular HGB Conc 35 % (30-34); Mean Corpuscular Volume 90 fl (79-97); Monocytes # (Auto) 0.3 K/mm3 (0.0-0.8); Red Blood Count 2.62 M/mm3 (3.65-5.03); Red Cell Distribution Width 16.7 % (13.2-15.2)
[2018-11-08 13:12] LABS: Albumin 2.5 g/dL (3.9-5); Calcium 8.5 mg/dL (8.4-10.2)
[2018-11-08 13:15] LABS: Platelet Count 73 K/mm3 (140-440)
[2018-11-08] MEDS ORDERED: NACL 0.9% 1000 ML 0 ML ONE (13:35)
[2018-11-08] MEDS ORDERED: HumuLIN R IV ONE ×3 (13:54→16:47)
--- NOTE | 2018-11-08 13:58 | Emergency Department Report ---
ED General Adult HPI - General Chief complaint: Weakness Stated complaint: WEAKNESS/IRREGULAR BLOOD SUGAR Time Seen by Provider: 11/08/18 11:51 Source: patient, family, RN notes reviewed, old records reviewed Mode of arrival: Wheelchair Limitations: No Limitations - History of Present Illness Initial comments: This is a pleasant 68-year-old female. This patient is not known to this provider previously. Her past medical history includes cirrhosis, secondary to "fatty liver", following with Dr. Huang of gastroenterology, following up tomorrow for a paracentesis. Also has a history of renal insufficiency, presumed hepatorenal syndrome, hypertension, diabetes, known anemia, and follows with nephrology, Dr. Aguilar The patient presents to the ER today with a complaint of hyperglycemia. She reports that she accidentally lost and misplaced her Medtronic insulin pump a few days ago. She reports that since then she has not been able to give herself her insulin. She presents with a complaint of painless hyperglycemia. She states her fingersticks are typically in the mid 100s. She denies physical pain. She denies headache, neck pain, chest pain. She has chronic abdominal distention and is scheduled for a paracentesis tomorrow. She has chronic lower extremity which she states is at her baseline. She makes no complaint of dizziness, no complaint of ataxia, and denies syncope/loss of consciousness. Her hyperglycemia is constant, does not radiate anywhere, and reportedly does not have exacerbating or relieving factors that she is aware of. -: Gradual Consistency: constant Improves with: none Worsens with: none - Related Data Home Medications Medication Instructions Recorded Confirmed Last Taken Januvia 50 mg PO DAILY 01/26/18 11/08/18 11/01/18 50mg Lactulose 30 ml PO BID 08/26/18 11/08/18 11/01/18 30ml Lispro Insulin [Humalog] 9 units SQ AC 08/26/18 11/08/18 11/01/18 9 units Rifaximin [Xifaxan] 550 mg PO BID 08/26/18 11/08/18 11/01/18 550mg Furosemide [Lasix TAB] 40 mg PO QDAY 10/19/18 11/08/18 11/01/18 50mg Previous Rx's Medication Instructions Recorded Last Taken Type Famotidine [Pepcid] 20 mg PO DAILY #30 tablet 03/14/18 11/01/18 Rx 20mg Insulin NPH Hum/Reg Insulin Hm 15 unit SQ BID #1 insuln.pen 11/08/18 Unknown Rx [Novolin 70-30 Flexpen] Allergies Allergy/AdvReac Type Severity Reaction Status Date / Time No Known Allergies Allergy Verified 01/26/18 09:53 ED Review of Systems ROS: Stated complaint: WEAKNESS/IRREGULAR BLOOD SUGAR Other details as noted in HPI Constitutional: denies: fever Eyes: denies: eye discharge ENT: denies: epistaxis Respiratory: denies: cough Cardiovascular: edema (chronic lower extremity edema). denies: chest pain Gastrointestinal: other (chronic abdominal distention) Genitourinary: denies: dysuria Musculoskeletal: myalgia (chronic lower extremity edema) Neurological: denies: headache, abnormal gait ED Past Medical Hx - Past Medical History Hx Hypertension: Yes Hx Diabetes: Yes Hx Liver Disease: Yes Hx Renal Disease: Yes Hx Arthritis: No Hx HIV: No Additional medical history: TIPS PROCEDURE 02/2018 [facility] - Surgical History Additional Surgical History: left shoulder surgery, TUBILIGATION - Social History Smoking Status: Never Smoker Substance Use Type: None - Medications Home Medications: Home Medications Medication Instructions Recorded Confirmed Last Taken Type Januvia 50 mg PO DAILY 01/26/18 11/08/18 11/01/18 History 50mg Famotidine [Pepcid] 20 mg PO DAILY #30 tablet 03/14/18 11/08/18 11/01/18 Rx 20mg Lactulose 30 ml PO BID 08/26/18 11/08/18 11/01/18 History 30ml Lispro Insulin [Humalog] 9 units SQ AC 08/26/18 11/08/18 11/01/18 History 9 units Rifaximin [Xifaxan] 550 mg PO BID 08/26/18 11/08/18 11/01/18 History 550mg Furosemide [Lasix TAB] 40 mg PO QDAY 10/19/18 11/08/18 11/01/18 History 50mg Insulin NPH Hum/Reg Insulin Hm 15 unit SQ BID #1 insuln.pen 11/08/18 Unknown Rx [Novolin 70-30 Flexpen] ED Physical Exam - General Limitations: No Limitations General appearance: alert, in no apparent distress - Head Head exam: Present: atraumatic, normocephalic - Eye Eye exam: Present: normal appearance, EOMI, other (visual acuity intact to finger counting, color perception, reading at a close distance). Absent: nystagmus - ENT ENT exam: Present: normal exam, normal orophraynx, mucous membranes moist, normal external ear exam - Neck Neck exam: Present: normal inspection, full ROM. Absent: tenderness, meningismus - Respiratory Respiratory exam: Present: normal lung sounds bilaterally. Absent: respiratory distress - Cardiovascular Cardiovascular Exam: Present: regular rate, normal rhythm, normal heart sounds. Absent: bradycardia, tachycardia, irregular rhythm, systolic murmur, diastolic murmur, rubs, gallop - GI/Abdominal GI/Abdominal exam: Present: soft, distended. Absent: tenderness, guarding, rebound, rigid, pulsatile mass - Extremities Exam Extremities exam: Present: normal inspection, pedal edema, other (2+ pulses noted in the bilateral upper, lower extremities. Compartments soft. No long bony tenderness. The pelvis is stable.). Absent: calf tenderness - Back Exam Back exam: Present: normal inspection, full ROM. Absent: tenderness, CVA tenderness (R), CVA tenderness (L), paraspinal tenderness, vertebral tenderness - Neurological Exam Neurological exam: Present: alert, oriented X3, normal gait, other (Extraocular movements intact. Tongue midline. No facial droop. Facial sensation intact to light touch in the V1, V2, V3 distribution bilaterally. 5 and 5 strength in 4 extremities.. Sensation is intact to light touch in 4 extremities.). Absent: motor sensory deficit - Psychiatric Psychiatric exam: Present: normal affect, normal mood - Skin Skin exam: Present: warm, dry, intact, normal color. Absent: rash ED Course Vital Signs 11/08/18 11/08/18 11:51 14:10 Temperature 97.4 F L Pulse Rate 94 H 88 Respiratory 18 16 Rate Blood Pressure 149/63 Blood Pressure 169/79 [Left] O2 Sat by Pulse 100 100 Oximetry - Reevaluation(s) Reevaluation #1: 11/08/18 15:03 Differential diagnosis, including not limited to: Hyperglycemia, chronic renal infancy, chronic anemia, chronic edema Assessment and plan: 68-year-old female with a primary complaint of hyperglycemia, likely secondary to accidentally misplacing her Medtronic insulin pump. We do not have this pump available in the emergency room to replace. Patient's case was evaluated by case management/high school social studies tutor, who is not able to procure a replacement pump. Patient states that she has equipment at home to give herself insulin shots Therefore, the patient will be discharged with a prescription of insulin 70/30, 15 units in the morning, 15 units at night, and she will be instructed to follow up as soon as possible with her outpatient primary care doctor to have her Medtronic device replacement. Appears to have chronic anemia, chronic renal insufficiency and chronic edema. She can follow-up with her outpatient providers for all of the aforementioned. She does not appear to be acutely decompensated in any of these departments. Reevaluation #2: 11/08/18 18:24 Patient has received a cumulative dose of 28 units of insulin. She still remains markedly hyperglycemic. Given her multiple medical issues, including chronic cirrhosis, chronic renal insufficiency, insulin requirements, she'll be admitted to the medical service for glycemic control. I discussed this with the patient, who verbalized understanding, and was amenable to this plan of care. Presented the patient to the hospital physician, Dr. Clay sharif, who accepts to his service ED Medical Decision Making - Lab Data Result diagrams: 11/08/18 12:34 11/08/18 12:34 Vital Signs 11/08/18 11/08/18 11:51 14:10 Temperature 97.4 F L Pulse Rate 94 H 88 Respiratory 18 16 Rate Blood Pressure 149/63 Blood Pressure 169/79 [Left] O2 Sat by Pulse 100 100 Oximetry Lab Results 11/08/18 11/08/18 11/08/18 Range/Units 11:49 12:34 12:34 WBC 3.3 L (4.5-11.0) K/mm3 RBC 2.62 L (3.65-5.03) M/mm3 Hgb 8.2 L (10.1-14.3) gm/dl Hct 23.5 L (30.3-42.9) % MCV 90 (79-97) fl MCH 32 (28-32) pg MCHC 35 H (30-34) % RDW 16.7 H (13.2-15.2) % Plt Count 73 L (140-440) K/mm3 Lymph % (Auto) 13.5 (13.4-35.0) % [place] % (Auto) 9.0 H (0.0-7.3) % Eos % (Auto) 1.0 (0.0-4.3) % Baso % (Auto) 1.5 (0.0-1.8) % Lymph # 0.4 L (1.2-5.4) K/mm3 [place] # 0.3 (0.0-0.8) K/mm3 Eos # 0.0 (0.0-0.4) K/mm3 Baso # 0.0 (0.0-0.1) K/mm3 Seg Neutrophils % 75.0 H (40.0-70.0) % Seg Neutrophils # 2.5 (1.8-7.7) K/mm3 VBG pH (7.320-7.420) Sodium 133 L (137-145) mmol/L Potassium 3.3 L (3.6-5.0) mmol/L Chloride 96.5 L (98-107) mmol/L Carbon Dioxide 22 (22-30) mmol/L Anion Gap 18 mmol/L BUN 30 H (7-17) mg/dL Creatinine 1.6 H (0.7-1.2) mg/dL Estimated GFR 32 ml/min BUN/Creatinine Ratio 19 % Glucose 599 H* (65-100) mg/dL POC Glucose > 500 H (70-105) Calcium 8.5 (8.4-10.2) mg/dL Total Bilirubin 2.20 H (0.1-1.2) mg/dL AST 33 (5-40) units/L ALT 22 (7-56) units/L Alkaline Phosphatase 124 (35-129) units/L Total Protein 5.7 L (6.3-8.2) g/dL Albumin 2.5 L (3.9-5) g/dL Albumin/Globulin Ratio 0.8 % 11/08/ Range/Units 12:34 WBC (4.5-11.0) K/mm3 RBC (3.65-5.03) M/mm3 Hgb (10.1-14.3) gm/dl Hct (30.3-42.9) % MCV (79-97) fl MCH (28-32) pg MCHC (30-34) % RDW (13.2-15.2) % Plt Count (140-440) K/mm3 Lymph % (Auto) (13.4-35.0) % [place] % (Auto) (0.0-7.3) % Eos % (Auto) (0.0-4.3) % Baso % (Auto) (0.0-1.8) % Lymph # (1.2-5.4) K/mm3 [place] # (0.0-0.8) K/mm3 Eos # (0.0-0.4) K/mm3 Baso # (0.0-0.1) K/mm3 Seg Neutrophils % (40.0-70.0) % Seg Neutrophils # (1.8-7.7) K/mm3 VBG pH 7.394 (7.320-7.420) Sodium (137-145) mmol/L Potassium (3.6-5.0) mmol/L Chloride (98-107) mmol/L Carbon Dioxide (22-30) mmol/L Anion Gap mmol/L BUN (7-17) mg/dL Creatinine (0.7-1.2) mg/dL Estimated GFR ml/min BUN/Creatinine Ratio % Glucose (65-100) mg/dL POC Glucose (70-105) Calcium (8.4-10.2) mg/dL Total Bilirubin (0.1-1.2) mg/dL AST (5-40) units/L ALT (7-56) units/L Alkaline Phosphatase (35-129) units/L Total Protein (6.3-8.2) g/dL Albumin (3.9-5) g/dL Albumin/Globulin Ratio % Critical Care Time: Yes Critical care time in (mins) excluding proc time.: 35 Critical care attestation.: If time is entered above; I have spent that time in minutes in the direct care of this critically ill patient, excluding procedure time. ED Disposition Clinical Impression: Hyperglycemia, CKD (chronic kidney disease), Cirrhosis of liver Disposition: OP ADMIT IP TO THIS HOSP Is pt being admited?: Yes Does the pt Need Aspirin: No Condition: Stable Additional Instructions: Follow-up with her primary care doctor as soon as possible to have a Medtronic device replaced. In the meantime, use the insulin 7030 flexed pen, twice daily, 15 units in the morning, and 15 units at night. Continue other oral outpatient diabetic medications, but hold additional formulations of insulin, until medications can be reconciled by her primary care doctor. Please follow- up with your primary care doctor as soon as possible, and have him follow-up incidental abnormal laboratory studies, including anemia, and low platelet count. Please follow up tomorrow for your scheduled paracentesis. Return to the emergency room right away with worsening or different symptoms, or symptoms are not present on the initial emergency room evaluation. Prescriptions: Insulin NPH Hum/Reg Insulin Hm [Novolin 70-30 Flexpen] 15 unit SQ BID #1 insuln.pen Referrals: WILLIS MI MD [Primary Care Provider] - 3-5 Days TAYE AGUILAR MD [Staff Physician] - 3-5 Days VASQUEZ HUANG MD [Staff Physician] - 3-5 Days
[2018-11-08] MEDS ORDERED: ZOFRAN IV ONE (18:44)
--- NOTE | 2018-11-08 22:31 | History and Physical Report ---
History of Present Illness Date of examination: 11/08/18 Date of admission: 11/08/18 18:25 Chief complaint: High blood glucose levels for 2 days History of present illness: This is a pleasant 68-year-old female. This patient is not known to this provider previously. Her past medical history includes cirrhosis, secondary to "fatty liver", following with Dr. Huang of gastroenterology, following up tomorrow for a paracentesis. Also has a history of renal insufficiency, presumed hepatorenal syndrome, hypertension, diabetes, known anemia, and follows with nephrology, Dr. Lowe The patient presents to the ER today with a complaint of hyperglycemia. She reports that she accidentally lost and misplaced her Medtronic insulin pump a few days ago. She reports that since then she has not been able to give herself her insulin. She presents with a complaint of painless hyperglycemia. She states her fingersticks are typically in the mid 100s. She denies physical pain. She denies headache, neck pain, chest pain. She has chronic abdominal distention and is scheduled for a paracentesis tomorrow. She has chronic lower extremity which she states is at her baseline. She makes no complaint of dizziness, no complaint of ataxia, and denies syncope/loss of consciousness. Her hyperglycemia is constant, does not radiate anywhere, and reportedly does not have exacerbating or relieving factors that she is aware of. -: Gradual Consistency: constant Improves with: none Worsens with: none - Related Data Home Medications Medication Instructions Recorded Confirmed Last Taken Januvia 50 mg PO DAILY 01/26/18 11/08/18 11/01/18 50mg Lactulose 30 ml PO BID 08/26/18 11/08/18 11/01/18 30ml Lispro Insulin [Humalog] 9 units SQ AC 08/26/18 11/08/18 11/01/18 9 units Rifaximin [Xifaxan] 550 mg PO BID 08/26/18 11/08/18 11/01/18 550mg Furosemide [Lasix TAB] 40 mg PO QDAY 10/19/18 11/08/18 11/01/18 50mg Previous Rx's Medication Instructions Recorded Last Taken Type Famotidine [Pepcid] 20 mg PO DAILY #30 tablet 03/14/18 11/01/18 Rx 20mg Insulin NPH Hum/Reg Insulin Hm 15 unit SQ BID #1 insuln.pen 11/08/18 Unknown Rx [Novolin 70-30 Flexpen] Allergies Allergy/AdvReac Type Severity Reaction Status Date / Time No Known Allergies Allergy Verified 01/26/18 09:53 - Past Medical History Hx Hypertension: Yes Hx Diabetes: Yes Hx Liver Disease: Yes Hx Renal Disease: Yes Hx Arthritis: No Hx HIV: No Additional medical history: TIPS PROCEDURE 02/2018 [place], ABD TAPS - Surgical History Additional Surgical History: left shoulder surgery, TUBILIGATION - Social History Smoking Status: Never Smoker Substance Use Type: None - Medications Home Medications: Home Medications Medication Instructions Recorded Confirmed Last Taken Type Januvia 50 mg PO DAILY 01/26/18 11/08/18 11/01/18 History 50mg Famotidine [Pepcid] 20 mg PO DAILY #30 tablet 03/14/18 11/08/18 11/01/18 Rx 20mg Lactulose 30 ml PO BID 08/26/18 11/08/18 11/01/18 History 30ml Lispro Insulin [Humalog] 9 units SQ AC 08/26/18 11/08/18 11/01/18 History 9 units Rifaximin [Xifaxan] 550 mg PO BID 08/26/18 11/08/18 11/01/18 History 550mg Furosemide [Lasix TAB] 40 mg PO QDAY 10/19/18 11/08/18 11/01/18 History 50mg Insulin NPH Hum/Reg Insulin Hm 15 unit SQ BID #1 insuln.pen 11/08/18 Unknown Rx [Novolin 70-30 Flexpen] Review of Systems ROS: Stated complaint: WEAKNESS/IRREGULAR BLOOD SUGAR Other details as noted in HPI Constitutional: denies: fever Eyes: denies: eye discharge ENT: denies: epistaxis Respiratory: denies: cough Cardiovascular: edema (chronic lower extremity edema). denies: chest pain Gastrointestinal: other (chronic abdominal distention) Genitourinary: denies: dysuria Musculoskeletal: myalgia (chronic lower extremity edema) Neurological: denies: headache, abnormal gait Temporary hepatic encephalopathy Medications and Allergies Allergies Allergy/AdvReac Type Severity Reaction Status Date / Time No Known Allergies Allergy Verified 01/26/18 09:53 Home Medications Medication Instructions Recorded Confirmed Last Taken Type Januvia 50 mg PO DAILY 10/01/0511/08/18 11/01/18 History 50mg Famotidine [Pepcid] 20 mg PO DAILY #30 tablet 03/14/18 11/08/18 11/01/18 Rx 20mg Lactulose 30 ml PO BID 08/26/18 11/08/18 11/01/18 History 30ml Lispro Insulin [Humalog] 9 units SQ AC 08/26/18 11/08/18 11/01/18 History 9 units Rifaximin [Xifaxan] 550 mg PO BID 08/26/18 11/08/18 11/01/18 History 550mg Furosemide [Lasix TAB] 40 mg PO QDAY 10/19/18 11/08/18 11/01/18 History 50mg Insulin NPH Hum/Reg Insulin Hm 15 unit SQ BID #1 insuln.pen 11/08/18 Unknown Rx [Novolin 70-30 Flexpen] Exam - Constitutional Vitals: Temp Pulse Resp BP Pulse Ox 97.6 F 87 16 133/59 99 11/08/18 19:57 11/08/18 19:57 11/08/18 19:57 11/08/18 19:57 11/08/18 19:57 General appearance: Present: no acute distress, well-nourished - EENT Eyes: Present: PERRL ENT: hearing intact, clear oral mucosa - Neck Neck: Present: supple, normal ROM - Respiratory Respiratory effort: normal Respiratory: bilateral: CTA - Cardiovascular Heart rate: 78 Rhythm: regular Heart Sounds: Present: S1 & S2. Absent: rub, click - Extremities Extremities: no ischemia, pulses intact, pulses symmetrical, No edema Peripheral Pulses: within normal limits - Abdominal General gastrointestinal: Present: soft, non-tender, non-distended, normal bowel sounds Female genitourinary: Present: normal - Rectal Rectal Exam: deferred - Integumentary Integumentary: Present: clear, warm, dry - Musculoskeletal Musculoskeletal: gait normal, strength equal bilaterally - Psychiatric Psychiatric: appropriate mood/affect, intact judgment & insight - Neurologic Neurologic: CNII-XII intact, moves all extremities - Allied Health Allied health notes reviewed: nursing, case management Results - Labs CBC & Chem 7: 11/08/18 12:34 11/08/18 12:34 Labs: Laboratory Last Values WBC 3.3 K/mm3 (4.5-11.0) L 11/08/18 12:34 RBC 2.62 M/mm3 (3.65-5.03) L 11/08/18 12:34 Hgb 8.2 gm/dl (10.1-14.3) L 11/08/18 12:34 Hct 23.5 % (30.3-42.9) L 11/08/18 12:34 MCV 90 fl (79-97) 11/08/18 12:34 MCH 32 pg (28-32) 11/08/18 12:34 MCHC 35 % (30-34) H 11/08/18 12:34 RDW 16.7 % (13.2-15.2) H 11/08/18 12:34 Plt Count 73 K/mm3 (140-440) L 11/08/18 12:34 Lymph % (Auto) 13.5 % (13.4-35.0) 11/08/18 12:34 [place] % (Auto) 9.0 % (0.0-7.3) H 11/08/18 12:34 Eos % (Auto) 1.0 % (0.0-4.3) 11/08/18 12:34 Baso % (Auto) 1.5 % (0.0-1.8) 11/08/18 12:34 Lymph # 0.4 K/mm3 (1.2-5.4) L 11/08/18 12:34 [place] # 0.3 K/mm3 (0.0-0.8) 11/08/18 12:34 Eos # 0.0 K/mm3 (0.0-0.4) 11/08/18 12:34 Baso # 0.0 K/mm3 (0.0-0.1) 11/08/18 12:34 Seg Neutrophils % 75.0 % (40.0-70.0) H 11/08/18 12:34 Seg Neutrophils # 2.5 K/mm3 (1.8-7.7) 11/08/18 12:34 VBG pH 7.394 (7.320-7.420) 11/08/18 12:34 Sodium 133 mmol/L (137-145) L 11/08/18 12:34 Potassium 3.3 mmol/L (3.6-5.0) L 11/08/18 12:34 Chloride 96.5 mmol/L (98-107) L 11/08/18 12:34 Carbon Dioxide 22 mmol/L (22-30) 11/08/18 12:34 18 mmol/L 11/08/18 12:34 BUN 30 mg/dL (7-17) H 11/08/18 12:34 1.6 mg/dL (0.7-1.2) H 11/08/18 12:34 Estimated GFR 32 ml/min 11/08/18 12:34 19 % 11/08/18 12:34 Glucose 599 mg/dL (65-100) H* 11/08/18 12:34 POC Glucose 404 (70-105) H 11/08/18 21:13 Calcium 8.5 mg/dL (8.4-10.2) 11/08/18 12:34 2.20 mg/dL (0.1-1.2) H 11/08/18 12:34 AST 33 units/L (5-40) 11/08/18 12:34 ALT 22 units/L (7-56) 11/08/18 12:34 124 units/L (35-129) 11/08/18 12:34 5.7 g/dL (6.3-8.2) L 11/08/18 12:34 2.5 g/dL (3.9-5) L 11/08/18 12:34 0.8 % 11/08/18 12:34 - Imaging and Cardiology EKG: report reviewed (85 and in normal sinus rhythm. 2 premature complexes left anterior fascicular block) Assessment and Plan Advance Directives: Yes (full code) VTE prophylaxis?: Chemical Plan of care discussed with patient/family: Yes - Patient Problems (1) Hyperosmolar non-ketotic state in patient with type 2 diabetes mellitus Current Visit: Yes Status: Acute Plan to address problem: Patient has lost her Medtronic insulin pump Patient initiated on Novolin 70/30 25 units twice a day and 12 units of NovoLog before lunch Patient also to get high-dose sliding scale protocol before each meal IV fluids were not started because of the patient's ascites and volume overload Check hemoglobin A1c Going forward the question is whether to continue insulin pump are continue her on insulin 7030 twice a day visit short acting insulin before lunch. Given her other comorbid conditions it is dangerous to continue glucose levels tightly with a predisposition for hypoglycemia hence would discontinue the Medtronic insulin pump. Discussed to some extent with the patient while in the emergency room. Primary team to continue the discretion about Medtronic insulin pump versus NovoLog 7030 twice a day along with short acting insulin before lunch. (2) Hepatic failure Current Visit: Yes Status: Chronic Qualifiers: Liver failure chronicity: chronic Hepatic coma status: without hepatic coma Qualified Code(s): K72.10 - Chronic hepatic failure without coma Plan to address problem: Patient on lactulose and Xifaxin (3) Ascites Current Visit: Yes Status: Acute Qualifiers: Ascites type: other type Qualified Code(s): R18.8 - Other ascites Plan to address problem: Due to fatty liver Patient directed paracentesis in the morning Fluid to be sent for analysis (4) Hypokalemia Current Visit: Yes Status: Acute Plan to address problem: Supplemented (5) BELL (acute kidney injury) Current Visit: Yes Status: Acute Plan to address problem: Given the volume overload and patient being on Lasix will defer to nephrology (6) DVT prophylaxis Current Visit: Yes Status: Acute Plan to address problem: SCDs and GI prophylaxis
[2018-11-08] MEDS ORDERED: ZOFRAN IV PRN (22:32)
[2018-11-08] MEDS ORDERED: DILAUDID IV PRN (22:32)
[2018-11-08] MEDS ORDERED: TYLENOL PO PRN (22:32)
[2018-11-08] MEDS ORDERED: PERCOCET 5/325 PO PRN (22:32)
[2018-11-08] MEDS ORDERED: PEPCID PO SCH (23:00)
[2018-11-08] MEDS ORDERED: K-DUR PO SCH (23:00)
[2018-11-08] MEDS: CEPHULAC PO SCH (23:48)
[2018-11-08] MEDS: PEPCID PO SCH (23:48)
[2018-11-08] MEDS: XIFAXAN PO SCH (23:54)
[2018-11-09] MEDS ORDERED: HumuLIN R SUB-Q ONE (00:09)
[2018-11-09] MEDS: LASIX IV SCH ×2 (05:47→17:22)
[2018-11-09] MEDS: CEPHULAC PO SCH ×2 (05:48→13:25)
[2018-11-09 06:33] LABS: Basophils # (Auto) 0.1 K/mm3 (0.0-0.1); Basophils % (Auto) 2.1 % (0.0-1.8); Eosinophils # (Auto) 0.2 K/mm3 (0.0-0.4); Eosinophils % (Auto) 4.8 % (0.0-4.3); Hemoglobin 7.3 gm/dl (10.1-14.3); Lymphocytes # (Auto) 0.9 K/mm3 (1.2-5.4); Lymphocytes % (Auto) 24.7 % (13.4-35.0); Mean Corpuscular HGB Conc 35 % (30-34); Mean Corpuscular Volume 88 fl (79-97); Monocytes # (Auto) 0.5 K/mm3 (0.0-0.8); Platelet Count 71 K/mm3 (140-440); Red Blood Count 2.38 M/mm3 (3.65-5.03); Red Cell Distribution Width 16.7 % (13.2-15.2)
[2018-11-09 06:59] LABS: Albumin 1.9 g/dL (3.9-5)
[2018-11-09] MEDS ORDERED: HumaLOG SUB-Q SCH (07:30)
[2018-11-09] MEDS: HumaLOG SUB-Q SCH ×4 (08:39→17:16)
--- NOTE | 2018-11-09 09:04 | Consultation ---
History of Present Illness - Reason for Consult Consult date: 11/09/18 chronic renal failure, hypokalemia - History of Present Illness The patient is a 68 YO WF, well known to our service, with history significant for Obesity, DM type 2, HTN, CKD stage 3, Anemia, non-alcoholic Cirrhosis, Portal HTN s/p TIPS and Ascites with recurrent paracentesis who presented to [facility] ED with uncontrolled blood sugar. Patient lost her Insulin pump few days ago and since then her blood sugar has been very high at home. She was scheduled for a paracentesis tomorrow. She has chronic lower extremity which she states is at her baseline. Patient denies fever, chills, cough, sob, abd pain, N, V, D, dizziness, syncope or rash. Creatinine is 1.6 with potassium of 3. Nephrology was consulted for further evaluation. Past History Past Medical History: anemia, diabetes, hypertension, renal failure, other (Cirrhosis) Medications and Allergies Allergies Allergy/AdvReac Type Severity Reaction Status Date / Time No Known Allergies Allergy Verified 01/26/18 09:53 Home Medications Medication Instructions Recorded Confirmed Last Taken Type Januvia 50 mg PO DAILY 01/26/18 11/08/18 11/01/18 History 50mg Famotidine [Pepcid] 20 mg PO DAILY #30 tablet 03/14/18 11/08/18 11/01/18 Rx 20mg Lactulose 30 ml PO BID 08/26/18 11/08/18 11/01/18 History 30ml Lispro Insulin [Humalog] 9 units SQ AC 08/26/18 11/08/18 11/01/18 History 9 units Rifaximin [Xifaxan] 550 mg PO BID 08/26/18 11/08/18 11/01/18 History 550mg Furosemide [Lasix TAB] 40 mg PO QDAY 10/19/18 11/08/18 11/01/18 History 50mg Insulin NPH Hum/Reg Insulin Hm 15 unit SQ BID #1 insuln.pen 11/08/18 Unknown Rx [Novolin 70-30 Flexpen] Active Meds: Active Medications Acetaminophen (Tylenol) 650 mg PO Q4H PRN PRN Reason: Pain MILD(1-3)/Fever >100.5/DE Famotidine (Pepcid) 10 mg PO BID [facility] Last Admin: 11/08/18 23:48 Dose: 10 mg Documented by: Furosemide (Lasix) 40 mg IV 0600,1800 [facility] Last Admin: 11/09/18 05:47 Dose: 40 mg Documented by: Hydromorphone HCl (Dilaudid) 0.5 mg IV Q3H PRN PRN Reason: Pain , Severe (7-10) Insulin Human Isoph/Insulin Regular (Humulin 70/30) 25 unit SUB-Q BIDDIAB [facility] Last Admin: 11/09/18 08:40 Dose: 25 unit Documented by: Insulin Human Lispro (Humalog) 12 unit SUB-Q QDAY@1200 [facility] Insulin Human Lispro (Humalog) 0 unit SUB-Q ACHS [facility]; Protocol Last Admin: 11/09/18 08:39 Dose: 8 unit Documented by: Lactulose (Cephulac) 20 gm PO Q8HR [facility] Last Admin: 11/09/18 05:48 Dose: 20 gm Documented by: Linagliptin (Tradjenta) 5 mg PO QDAY [facility] Ondansetron HCl (Zofran) 4 mg IV Q8H PRN PRN Reason: Nausea And Vomiting Oxycodone/Acetaminophen (Percocet 5/325) 1 tab PO Q6H PRN PRN Reason: Pain, Moderate (4-6) Potassium Chloride (K-Dur) 20 meq PO Q12HR [facility] Last Admin: 11/08/18 23:48 Dose: 20 meq Documented by: Rifaximin (Xifaxan) 550 mg PO BID [facility] Last Admin: 11/08/18 23:54 Dose: 550 mg Documented by: Sodium Chloride (Sodium Chloride Flush Syringe 10 Ml) 10 ml IV BID [facility] Sodium Chloride (Sodium Chloride Flush Syringe 10 Ml) 10 ml IV PRN PRN PRN Reason: LINE FLUSH Review of Systems Constitutional: fatigue, no weight loss, no fever, no chills, no anorexia, no weakness, no poor appetite Breasts: deferred Cardiovascular: edema, dyspnea on exertion, leg edema, no chest pain, no ort hopnea, no syncope, no lightheadedness, no shortness of breath Respiratory: dyspnea on exertion, no cough, no hemoptysis, no shortness of breath, no home oxygen Gastrointestinal: no abdominal pain, no nausea, no vomiting, no diarrhea, no change in bowel habits, no melena Genitourinary Female: no dysuria, no hematuria Rectal: no bleeding Musculoskeletal: no muscle weakness Integumentary: no rash Neurological: no paralysis, no weakness, no seizures, no syncope, no convulsions, no aphasia, no change in speech, no change in mentation, no confusion, no memory loss Psychiatric: no memory loss, no confusion Exam - Vital Signs Vital signs: Vital Signs Temp Pulse Resp BP Pulse Ox 97.4 F L 94 H 18 149/63 100 11/08/18 11:51 11/08/18 11:51 11/08/18 11:51 11/08/18 11:51 11/08/18 11:51 - General Appearance General appearance: well-developed, well-nourished, appears stated age, obese, other (no distress) EENT: ATNC, PERRL, mucous membranes moist, hearing intact, vision intact Neck: Present: neck supple, trachea midline Respiratory: Clear to Ascultation Heart: regular, S1S2, no murmurs Gastrointestinal: Present: normoactive bowel sounds, distended (Ascites). Absent: tenderness Integumentary: no rash, warm and dry Neurologic: no focal deficit, no asterixis, alert and oriented x3 Musculoskeletal: Present: other (1+ LE edema noted) Psychiatric: cooperative Results - Lab Results 11/09/18 05:26 11/09/18 05:26 Most recent lab results Calcium 8.0 mg/dL (8.4-10.2) L 11/09/18 05:26 Assessment and Plan 1. CKD stage 3: CKD secondary to Diabetic nephropathy. Renal function is at her baseline. Monitor renal function. Avoid nephrotoxic agents. Meds dosage based on GFR. 2. FEN: Volume overload, Lasix. Hypokalemia, replete k. Monitor lytes. 3. DM with hyperglycemia. 4. Cirrhosis with ascites: S/p parcentesis yesterday. 5. Anemia: POA.
[2018-11-09] MEDS: PEPCID PO SCH (09:49)
[2018-11-09] MEDS: XIFAXAN PO SCH (09:49)
[2018-11-09] MEDS: SODIUM CHLORIDE FLUSH SYRINGE 10 ML IV SCH (09:50)
[2018-11-09] MEDS: TRADJENTA PO SCH (09:50)
[2018-11-09] MEDS: K-DUR PO SCH (09:54)
[2018-11-09] MEDS ORDERED: JANUVIA 50 MG PO SCH (10:00)
--- NOTE | 2018-11-09 13:47 | Ultrasound Report ---
ULTRASOUND-GUIDED PARACENTESIS INDICATION: Recurrent ascites Procedure was discussed and advanced with the patient including possible risks and benefits. Patient has had the procedure many times in the past. Patient is not on anticoagulant therapy and has no pert inent allergies. Timeout was performed. Sonography was used to localize a suitable pocket of ascites in the left lower quadrant. Under local anesthesia and aseptic technique, this collection was accessed using a 5 [place] Yueh catheter. Initia lly 120 cc of fluid was withdrawn by hand for laboratory analysis then 7100 cc of opaque orange-yello w ascitic fluid were withdrawn by vacuum aspiration and discarded. The catheter was removed and the s ite was secured. Patient tolerated the procedure well and left the department in good condition. IMPRESSION: Successful ultrasound-guided paracentesis Signer Name: Will Romero MD Signed: 11/09/2018 1:43 PM Workstation Name: [id number]
[2018-11-09 14:14] LABS: INR 1.17 (0.87-1.13)
--- NOTE | 2018-11-09 15:39 | Progress Note ---
Assessment and Plan Assessment and plan: This is a pleasant 68-year-old female. This patient is not known to this provider previously. Her past medical history includes cirrhosis, secondary to "fatty liver", following with Dr. Huang of gastroenterology, following up tomorrow for a paracentesis. Also has a history of renal insufficiency, presumed hepatorenal syndrome, hypertension, diabetes, known anemia, and follows with nephrology, Dr. Lowe The patient presents to the ER today with a complaint of hyperglycemia. She rep orts that she accidentally lost and misplaced her Medtronic insulin pump a few days ago. She reports that since then she has not been able to give herself her insulin. She presents with a complaint of painless hyperglycemia. She states her fingersticks are typically in the mid 100s. She denies physical pain. She denies headache, neck pain, chest pain. She has chronic abdominal distention and is scheduled for a paracentesis tomorrow. She has chronic lower extremity which she states is at her baseline. She makes no complaint of dizziness, no complaint of ataxia, and denies syncope/loss of consciousness. Her hyperglycemia is constant, does not radiate anywhere, and reportedly does not have exacerbating or relieving factors that she is aware of. (1) Hyperosmolar non-ketotic state in patient with type 2 diabetes mellitus Current Visit: Yes Status: Acute Plan to address problem: Patient has lost her Medtronic insulin pump Patient initiated on Novolin 70/30 25 units twice a day and 12 units of NovoLog before lunch Patient also to get high-dose sliding scale protocol before each meal IV fluids were not started because of the patient's ascites and volume overload Check hemoglobin A1c Going forward the question is whether to continue insulin pump are continue her on insulin 7030 twice a day visit short acting insulin before lunch. Given her other comorbid conditions it is dangerous to continue glucose levels tightly with a predisposition for hypoglycemia hence would discontinue the Medtronic insulin pump. Discussed to some extent with the patient while in the emergency room. Primary team to continue the discretion about Medtronic insulin pump versus NovoLog 7030 twice a day along with short acting insulin before lunch. (2) Hepatic failure Current Visit: Yes Status: Chronic Qualifiers: Liver failure chronicity: chronic Hepatic coma status: without hepatic coma Qualified Code(s): K72.10 - Chronic hepatic failure without coma Plan to address problem: Patient on lactulose and Xifaxin (3) Ascites Current Visit: Yes Status: Acute Qualifiers: Ascites type: other type Qualified Code(s): R18.8 - Other ascites Plan to address problem: Due to fatty liver Patient directed paracentesis in the morning Fluid to be sent for analysis (4) Hypokalemia Current Visit: Yes Status: Acute Plan to address problem: Supplemented (5) BELL (acute kidney injury) Current Visit: Yes Status: Acute Plan to address problem: Given the volume overload and patient being on Lasix will defer to nephrology (6) DVT prophylaxis Current Visit: Yes Status: Acute Plan to address problem: SCDs and GI prophylaxis hypokalemia replete, check mg Hospitalist Physical - Constitutional Vitals: Temp Pulse Resp BP Pulse Ox 98.1 F 86 20 140/57 99 11/09/18 13:26 11/09/18 13:26 11/09/18 13:26 11/09/18 13:26 11/09/18 13:26 General appearance: Present: no acute distress, well-nourished Results - Labs CBC & Chem 7: 11/09/18 05:26 11/09/18 05:26 Labs: Laboratory Last Values WBC 3.7 K/mm3 (4.5-11.0) L 11/09/18 05:26 RBC 2.38 M/mm3 (3.65-5.03) L 11/09/18 05:26 Hgb 7.3 gm/dl (10.1-14.3) L 11/09/18 05:26 Hct 21.0 % (30.3-42.9) L 11/09/18 05:26 MCV 88 fl (79-97) 11/09/18 05:26 MCH 31 pg (28-32) 11/09/18 05:26 MCHC 35 % (30-34) H 11/09/18 05:26 RDW 16.7 % (13.2-15.2) H 11/09/18 05:26 Plt Count 71 K/mm3 (140-440) L 11/09/18 05:26 Lymph % (Auto) 24.7 % (13.4-35.0) 11/09/18 05:26 [place] % (Auto) 13.0 % (0.0-7.3) H 11/09/18 05:26 Eos % (Auto) 4.8 % (0.0-4.3) H 11/09/18 05:26 Baso % (Auto) 2.1 % (0.0-1.8) H 11/09/18 05:26 Lymph # 0.9 K/mm3 (1.2-5.4) L 11/09/18 05:26 [place] # 0.5 K/mm3 (0.0-0.8) 11/09/18 05:26 Eos # 0.2 K/mm3 (0.0-0.4) 11/09/18 05:26 Baso # 0.1 K/mm3 (0.0-0.1) 11/09/18 05:26 Seg Neutrophils % 55.4 % (40.0-70.0) 11/09/18 05:26 Seg Neutrophils # 2.1 K/mm3 (1.8-7.7) 11/09/18 05:26 PT 14.6 Sec. (12.2-14.9) 11/09/18 13:38 INR 1.17 (0.87-1.13) H 11/09/18 13:38 VBG pH 7.394 (7.320-7.420) 11/08/18 12:34 Sodium 137 mmol/L (137-145) 11/09/18 05:26 Potassium 3.0 mmol/L (3.6-5.0) L 11/09/18 05:26 Chloride 102.1 mmol/L (98-107) 11/09/18 05:26 Carbon Dioxide 24 mmol/L (22-30) 11/09/18 05:26 14 mmol/L 11/09/18 05:26 BUN 24 mg/dL (7-17) H 11/09/18 05:26 1.6 mg/dL (0.7-1.2) H 11/09/18 05:26 Estimated GFR 32 ml/min 11/09/18 05:26 15 % 11/09/18 05:26 Glucose 319 mg/dL (65-100) H 11/09/18 05:26 POC Glucose 256 (70-105) H 11/09/18 13:12 9.1 % (4-6) H 11/08/18 23:05 Calcium 8.0 mg/dL (8.4-10.2) L 11/09/18 05:26 1.50 mg/dL (0.1-1.2) H 11/09/18 05:26 AST 31 units/L (5-40) 11/09/18 05:26 ALT 18 units/L (7-56) 11/09/18 05:26 103 units/L (35-129) 11/09/18 05:26 4.8 g/dL (6.3-8.2) L 11/09/18 05:26 1.9 g/dL (3.9-5) L 11/09/18 05:26 0.7 % 11/09/18 05:26 Active Medications - Current Medications Current Medications: Generic Name Dose Route Start Last Admin Trade Name Freq PRN Reason Stop Dose Admin Acetaminophen 650 mg 11/08/18 22:32 Tylenol PO Q4H PRN Pain MILD(1-3)/Fever >100.5/DE Famotidine 10 mg 11/08/18 23:00 11/09/18 09:49 Pepcid PO 10 mg BID [facility] Administration Furosemide 40 mg 11/09/18 06:00 11/09/18 05:47 Lasix IV 40 mg 0600,1800 [facility] Administration Hydromorphone HCl 0.5 mg 11/08/18 22:32 Dilaudid IV Q3H PRN Pain , Severe (7-10) Insulin Human Isoph/Insulin Regular 25 unit 11/09/18 08:00 11/09/18 08:40 Humulin 70/30 SUB-Q 25 unit BIDDIAB [facility] Administration Insulin Human Lispro 12 unit 11/09/18 12:00 11/09/18 13:20 Humalog SUB-Q 12 unit QDAY@1200 [facility] Administration Insulin Human Lispro 0 unit 11/09/18 07:30 11/09/18 13:20 Humalog SUB-Q 6 unit ACHS [facility] Administration Protocol Lactulose 20 gm 11/08/18 23:00 11/09/18 13:25 Cephulac PO 20 gm Q8HR [facility] Administration Linagliptin 5 mg 11/09/18 10:00 11/09/18 09:50 Tradjenta PO 5 mg QDAY [facility] Administration Ondansetron HCl 4 mg 11/08/18 22:32 Zofran IV Q8H PRN Nausea And Vomiting Oxycodone/Acetaminophen 1 tab 11/08/18 22:32 Percocet 5/325 PO Q6H PRN Pain, Moderate (4-6) Potassium Chloride 40 meq 11/09/18 10:00 11/09/18 09:54 K-Dur PO 40 meq Q12HR [facility] Administration Rifaximin 550 mg 11/08/18 23:00 11/09/18 09:49 Xifaxan PO 550 mg BID [facility] Administration Sodium Chloride 10 ml 11/09/18 10:00 11/09/18 09:50 Sodium Chloride Flush Syringe 10 Ml IV 10 ml BID [facility] Administration Sodium Chloride 10 ml 11/08/18 22:32 Sodium Chloride Flush Syringe 10 Ml IV PRN PRN LINE FLUSH Nutrition/Malnutrition Assess - Dietary Evaluation Nutrition/Malnutrition Findings: Nutrition Notes Start: 11/09/18 12:17 Freq: Status: Active Protocol: Document 11/09/18 12:17 NANCY (Rec: 11/09/18 12:21 NANCY [id number]) Nutrition Notes Need for Assessment generated from: MD Order,Education Initial or Follow up Brief Note Other Pertinent Diagnosis Hyperosmolar non-ketotic state , Liver failure with ascites Current Diet Consistent CHO Labs/Tests A1C 9.1 Subjective/Other Information RD consulted for diet education. Per records, pt misplaced her insulin pump a few days ago and has not been taking insulin. She is on the way to a procedure at time of visit (10:57). Nutrition Intervention Follow-Up By: 11/12/18 Additional Comments F/U: DM diet education needs
[2018-11-09] MEDS: SODIUM CHLORIDE FLUSH SYRINGE 10 ML IV PRN (17:19)
[2018-11-09 19:44] LABS: Monocytes Body Fluid 0 %
[2018-11-10] MEDS: HumaLOG SUB-Q SCH ×6 (00:13→22:34)
[2018-11-10] MEDS: K-DUR PO SCH ×3 (00:22→22:33)
[2018-11-10] MEDS: XIFAXAN PO SCH ×3 (00:23→22:34)
[2018-11-10] MEDS: PEPCID PO SCH ×3 (00:23→22:33)
[2018-11-10] MEDS: CEPHULAC PO SCH ×4 (00:24→22:33)
[2018-11-10] MEDS: SODIUM CHLORIDE FLUSH SYRINGE 10 ML IV SCH ×3 (00:26→22:35)
[2018-11-10 05:14] LABS: Calcium 7.9 mg/dL (8.4-10.2)
[2018-11-10] MEDS: LASIX IV SCH ×2 (07:30→17:23)
[2018-11-10] MEDS: TRADJENTA PO SCH (09:27)
--- NOTE | 2018-11-10 11:33 | Progress Note ---
Assessment and Plan 1. CKD stage 3: CKD secondary to Diabetic nephropathy. Renal function is at her baseline. Monitor renal function. Avoid nephrotoxic agents. Meds dosage based on GFR. 2. FEN: Volume overload, Lasix. Hypokalemia, K level is better. Monitor lytes. 3. DM with hyperglycemia. 4. Cirrhosis with ascites: S/p parcentesis. 5. Anemia: POA. Subjective Date of service: 11/10/18 Interval history: Patient was seen and examined at the bedside. and daughter at the bedside. Objective - Vital Signs Vital signs: Vital Signs - 12hr 11/10/18 11/10/18 02:15 07:41 Temperature 98.6 F 98.4 F Pulse Rate 86 Respiratory 20 20 Rate Blood Pressure 125/59 121/49 O2 Sat by Pulse 96 Oximetry - General Appearance General appearance: well-developed, well-nourished, appears stated age, obese, other (no distress) EENT: ATNC, PERRL, hearing intact, vision intact Neck: supple Respiratory: Present: Clear to Ascultation Cardiology: regular, S1S2, no murmurs Gastrointestinal: normoactive bowel sounds, no tenderness, distended Integumentary: warm and dry, chronic venous stasis Neurologic: no focal deficit, no asterixis, alert and oriented x3 Musculoskeletal: other (1+ edema of both LEs) Psychiatric: cooperative - Lab 11/09/18 05:26 11/10/18 04:14 Most recent lab results Calcium 7.9 mg/dL (8.4-10.2) L 11/10/18 04:14 Magnesium 1.70 mg/dL (1.7-2.3) 11/10/18 04:14 Medications & Allergies - Medications Allergies/Adverse Reactions: Allergies No Known Allergies Allergy (Verified 01/26/18 09:53) Home Medications: Home Medications Medication Instructions Recorded Confirmed Last Taken Type Januvia 50 mg PO DAILY 01/26/18 11/08/18 11/01/18 History 50mg Famotidine [Pepcid] 20 mg PO DAILY #30 tablet 03/14/18 11/08/18 11/01/18 Rx 20mg Lactulose 30 ml PO BID 08/26/18 11/08/18 11/01/18 History 30ml Lispro Insulin [Humalog] 9 units SQ AC 08/26/18 11/08/18 11/01/18 History 9 units Rifaximin [Xifaxan] 550 mg PO BID 08/26/18 11/08/18 11/01/18 History 550mg Furosemide [Lasix TAB] 40 mg PO QDAY 10/19/18 11/08/18 11/01/18 History 50mg Insulin NPH Hum/Reg Insulin Hm 15 unit SQ BID #1 insuln.pen 11/08/18 Unknown Rx [Novolin 70-30 Flexpen] Active Medications: Generic Name Dose Route Start Last Admin Trade Name Freq PRN Reason Stop Dose Admin Acetaminophen 650 mg 11/08/18 22:32 Tylenol PO Q4H PRN Pain MILD(1-3)/Fever >100.5/DE Famotidine 10 mg 11/08/18 23:00 11/10/18 09:27 Pepcid PO 10 mg BID CASTILLO Administration Furosemide 40 mg 11/09/18 06:00 11/10/18 07:30 Lasix IV 40 mg 0600,1800 CASTILLO Administration Hydromorphone HCl 0.5 mg 11/08/18 22:32 Dilaudid IV Q3H PRN Pain , Severe (7-10) Insulin Human Isoph/Insulin Regular 25 unit 11/09/18 08:00 11/10/18 08:28 Humulin 70/30 SUB-Q 25 unit BIDDIAB CASTILLO Administration Insulin Human Lispro 12 unit 11/09/18 12:00 11/09/18 13:20 Humalog SUB-Q 12 unit QDAY@1200 CASTILLO Administration Insulin Human Lispro 0 unit 11/09/18 07:30 11/10/18 07:57 Humalog SUB-Q Not Given ACHS [facility] Protocol Lactulose 20 gm 11/08/18 23:00 11/10/18 07:30 Cephulac PO 20 gm Q8HR CASTILLO Administration Linagliptin 5 mg 11/09/18 10:00 11/10/18 09:27 Tradjenta PO 5 mg QDAY CASTILLO Administration Ondansetron HCl 4 mg 11/08/18 22:32 Zofran IV Q8H PRN Nausea And Vomiting Oxycodone/Acetaminophen 1 tab 11/08/18 22:32 Percocet 5/325 PO Q6H PRN Pain, Moderate (4-6) Potassium Chloride 40 meq 11/09/18 10:00 11/10/18 09:27 K-Dur PO 40 meq Q12HR CASTILLO Administration Rifaximin 550 mg 11/08/18 23:00 11/10/18 09:28 Xifaxan PO 550 mg BID CASTILLO Administration Sodium Chloride 10 ml 11/09/18 10:00 11/10/18 09:28 Sodium Chloride Flush Syringe 10 Ml IV 10 ml BID CASTILLO Administration Sodium Chloride 10 ml 11/08/18 22:32 11/09/18 17:19 Sodium Chloride Flush Syringe 10 Ml IV 10 ml PRN PRN Administration LINE FLUSH
[2018-11-10] MEDS: SODIUM CHLORIDE FLUSH SYRINGE 10 ML IV PRN (17:24)
--- NOTE | 2018-11-10 17:36 | Progress Note ---
Assessment and Plan - Patient Problems (1) Hyperosmolar non-ketotic state in patient with type 2 diabetes mellitus Current Visit: Yes Status: Acute Plan to address problem: Patient has lost her Medtronic insulin pump Patient initiated on Novolin 70/30 25 units twice a day and 12 units of NovoLog before lunch Patient also to get high-dose sliding scale protocol before each meal IV fluids were not started because of the patient's ascites and volume overload Patient found her pump and wants to go back on pump after discharge. (2) Hepatic failure Current Visit: Yes Status: Chronic Qualifiers: Liver failure chronicity: chronic Hepatic coma status: without hepatic coma Qualified Code(s): K72.10 - Chronic hepatic failure without coma Plan to address problem: Patient on lactulose and Xifaxin (3) Ascites Current Visit: Yes Status: Acute Qualifiers: Ascites type: other type Qualified Code(s): R18.8 - Other ascites Plan to address problem: Due to fatty liver Patient directed paracentesis in the morning Fluid to be sent for analysis (4) Hypokalemia Current Visit: Yes Status: Acute Plan to address problem: Supplemented (5) BELL (acute kidney injury) Current Visit: Yes Status: Acute Plan to address problem: Given the volume overload and patient being on Lasix will defer to nephrology Improved (6) DVT prophylaxis Current Visit: Yes Status: Acute Plan to address problem: SCDs and GI prophylaxis Subjective Date of service: 11/10/18 Principal diagnosis: Hyperosmolar non ketotic state in diabetes Interval history: Symtomatically better BG levels are better Objective - Constitutional Vitals: Vital Signs - 12hr 11/10/18 11/10/18 11/10/18 07:41 09:00 13:00 Temperature 98.4 F Pulse Rate 86 Respiratory 20 86 H Rate Respiratory 20 Rate [Bilateral Leg] Blood Pressure 121/49 O2 Sat by Pulse 96 96 Oximetry 11/10/18 13:24 Temperature 97.7 F Pulse Rate 86 Respiratory 20 Rate Respiratory Rate [Bilateral Leg] Blood Pressure 149/63 O2 Sat by Pulse 100 Oximetry General appearance: Present: no acute distress, well-nourished - EENT Eyes: PERRL, EOM intact ENT: hearing intact, clear oral mucosa Ears: bilateral: normal - Neck Neck: supple, normal ROM - Respiratory Respiratory effort: normal Respiratory: bilateral: CTA - Breasts Breasts: normal - Cardiovascular Heart rate: 78 Rhythm: regular Heart Sounds: Present: S1 & S2. Absent: gallop, rub Extremities: no ischemia, pulses intact, No edema, normal color, Full ROM - Gastrointestinal General gastrointestinal: Present: soft, non-tender, non-distended, normal bowel sounds - Genitourinary Female genitourinary: normal - Integumentary Integumentary: clear, warm, dry - Musculoskeletal Musculoskeletal: 1, strength equal bilaterally - Neurologic Neurologic: moves all extremities - Psychiatric Psychiatric: memory intact, appropriate mood/affect, intact judgment & insight - Allied health notes Allied health notes reviewed: nursing, case management - Labs CBC & Chem 7: 11/09/18 05:26 11/11/18 05:24 Labs: Abnormal lab results 11/09/18 11/10/18 11/10/18 Range/Units 21:20 04:14 07:44 Sodium 134 L (137-145) mmol/L BUN 28 H (7-17) mg/dL Creatinine 1.7 H (0.7-1.2) mg/dL Glucose 110 H (65-100) mg/dL POC Glucose 66 L 119 H (70-105) Calcium 7.9 L (8.4-10.2) mg/dL 11/10/18 11/10/18 Range/Units 11:43 16:52 Sodium (137-145) mmol/L BUN (7-17) mg/dL Creatinine (0.7-1.2) mg/dL Glucose (65-100) mg/dL POC Glucose 257 H 204 H (70-105) Calcium (8.4-10.2) mg/dL
[2018-11-10] MEDS: MAG-OX PO SCH (22:33)
[2018-11-11] MEDS: LASIX IV SCH ×2 (06:00→17:17)
[2018-11-11] MEDS: CEPHULAC PO SCH ×2 (06:00→14:21)
[2018-11-11 06:30] LABS: Calcium 7.7 mg/dL (8.4-10.2)
[2018-11-11] MEDS: HumaLOG SUB-Q SCH ×4 (07:23→16:36)
[2018-11-11] MEDS: XIFAXAN PO SCH (09:12)
[2018-11-11] MEDS: MAG-OX PO SCH (09:13)
[2018-11-11] MEDS: PEPCID PO SCH (09:13)
[2018-11-11] MEDS: K-DUR PO SCH (09:13)
[2018-11-11] MEDS: TRADJENTA PO SCH (09:13)
[2018-11-11] MEDS: SODIUM CHLORIDE FLUSH SYRINGE 10 ML IV SCH (09:14)
--- NOTE | 2018-11-11 09:36 | Progress Note ---
Assessment and Plan 1. CKD stage 3: CKD secondary to Diabetic nephropathy. Renal function is at her baseline. Monitor renal function. Avoid nephrotoxic agents. Meds dosage based on GFR. 2. FEN: Volume overload, Lasix. Hypokalemia, K level is better. Monitor lytes. 3. DM with hyperglycemia. 4. Cirrhosis with ascites: S/p parcentesis. 5. Anemia: POA. F/u with me in 2-3 weeks. Subjective Date of service: 11/11/18 Interval history: Patient was seen and examined at the bedside. Doing ok. at the bedside. Objective - Vital Signs Vital signs: Vital Signs - 12hr 11/10/18 11/11/18 11/11/18 22:00 02:07 02:09 Temperature 98.7 F Pulse Rate 87 Respiratory 70 H 20 Rate Blood Pressure 127/57 O2 Sat by Pulse 98 973 H Oximetry 11/11/18 07:23 Temperature 98.3 F Pulse Rate 92 H Respiratory 20 Rate Blood Pressure 135/55 O2 Sat by Pulse 97 Oximetry - General Appearance General appearance: well-developed, well-nourished, appears stated age, obese, other (no distress) EENT: ATNC, PERRL, mucous membranes moist, hearing intact, vision intact Neck: supple Respiratory: Present: Clear to Ascultation Cardiology: regular, S1S2, no murmurs Gastrointestinal: normoactive bowel sounds, no tenderness, distended Integumentary: warm and dry, chronic venous stasis Neurologic: no focal deficit, no asterixis, alert and oriented x3 Musculoskeletal: other (1+ edema of both LEs noted) Psychiatric: cooperative - Lab 11/09/18 05:26 11/11/18 05:24 Most recent lab results Calcium 7.7 mg/dL (8.4-10.2) L 11/11/18 05:24 Magnesium 1.70 mg/dL (1.7-2.3) 11/11/18 05:24 Medications & Allergies - Medications Allergies/Adverse Reactions: Allergies No Known Allergies Allergy (Verified 01/26/18 09:53) Home Medications: Home Medications Medication Instructions Recorded Confirmed Last Taken Type Famotidine [Pepcid] 20 mg PO DAILY #30 tablet 03/14/18 11/08/18 11/01/18 Rx 20mg Lactulose 30 ml PO BID 08/26/18 11/08/18 11/01/18 History 30ml Lispro Insulin [Humalog] 9 units SQ AC 08/26/18 11/08/18 11/01/18 History 9 units Furosemide [Lasix TAB] 40 mg PO QDAY 10/19/18 11/08/18 11/01/18 History 50mg Insulin NPH Hum/Reg Insulin Hm 15 unit SQ BID #1 insuln.pen 11/08/18 Unknown Rx [Novolin 70-30 Flexpen] Linagliptin [Tradjenta] 5 mg PO QDAY #30 tablet 11/11/18 Unknown Rx Magnesium Oxide [Mag-Ox] 400 mg PO BID #60 tablet 11/11/18 Unknown Rx Potassium Chloride [K-Dur] 20 meq PO QDAY 30 Days #30 tablet 11/11/18 Unknown Rx Rifaximin [Xifaxan] 550 mg PO BID tablet 11/11/18 Unknown Rx oxyCODONE /ACETAMINOPHEN [Percocet 1 tab PO Q6H PRN #15 tablet 11/11/18 Unknown Rx 5/325 mg] Active Medications: Generic Name Dose Route Start Last Admin Trade Name Freq PRN Reason Stop Dose Admin Acetaminophen 650 mg 11/08/18 22:32 Tylenol PO Q4H PRN Pain MILD(1-3)/Fever >100.5/DE Famotidine 10 mg 11/08/18 23:00 11/11/18 09:13 Pepcid PO 10 mg BID CASTILLO Administration Furosemide 40 mg 11/09/18 06:00 11/11/18 06:00 Lasix IV 40 mg 0600,1800 CASTILLO Administration Hydromorphone HCl 0.5 mg 11/08/18 22:32 Dilaudid IV Q3H PRN Pain , Severe (7-10) Insulin Human Isoph/Insulin Regular 25 unit 11/09/18 08:00 11/11/18 08:25 Humulin 70/30 SUB-Q 25 unit BIDDIAB CASTILLO Administration Insulin Human Lispro 12 unit 11/09/18 12:00 11/10/18 12:42 Humalog SUB-Q 12 unit QDAY@1200 CASTILLO Administration Insulin Human Lispro 0 unit 11/09/18 07:30 11/11/18 07:23 Humalog SUB-Q Not Given ACHS [facility] Protocol Lactulose 20 gm 11/08/18 23:00 11/11/18 06:00 Cephulac PO 20 gm Q8HR CASTILLO Administration Linagliptin 5 mg 11/09/18 10:00 11/11/18 09:13 Tradjenta PO 5 mg QDAY CASTILLO Administration Magnesium Oxide 400 mg 11/10/18 22:00 11/11/18 09:13 Mag-Ox PO 400 mg BID CASTILLO Administration Ondansetron HCl 4 mg 11/08/18 22:32 Zofran IV Q8H PRN Nausea And Vomiting Oxycodone/Acetaminophen 1 tab 11/08/18 22:32 Percocet 5/325 PO Q6H PRN Pain, Moderate (4-6) Potassium Chloride 40 meq 11/09/18 10:00 11/11/18 09:13 K-Dur PO 40 meq Q12HR CASTILLO Administration Rifaximin 550 mg 11/08/18 23:00 11/11/18 09:12 Xifaxan PO 550 mg BID CASTILLO Administration Sodium Chloride 10 ml 11/09/18 10:00 11/11/18 09:14 Sodium Chloride Flush Syringe 10 Ml IV 10 ml BID CASTILLO Administration Sodium Chloride 10 ml 11/08/18 22:32 11/10/18 17:24 Sodium Chloride Flush Syringe 10 Ml IV 10 ml PRN PRN Administration LINE FLUSH
[2018-11-11 15:01] VITALS: BP 154/67
--- NOTE | 2018-11-11 15:56 | Discharge Summary ---
Providers - Providers Date of Admission: 11/11/18 09:10 Date of discharge: 11/11/18 Attending physician: GAVI NARVAEZ 11/08/18 13:54 Consult to Case Management [CONS] Stat Services Needed at Discharge: Other Notified:: yes Additional Physician Instructions: metronic insulin pump 11/08/18 22:53 Consult to Physician [CONS] Routine Comment: Consulting Provider: TAYE AGUILAR Physician Instructions: Reason For Exam: BELL 11/09/18 00:26 Consult to Dietitian/Nutrition [CONS] Routine Physician Instructions: Reason For Exam: Reason for Consult: Diet education 11/09/18 22:28 Consult to Physician [CONS] Routine Comment: Consulting Provider: VASQUEZ SHEA Physician Instructions: Reason For Exam: cld [facility] Condition: Stable Hospital course: The patient presents to the ER with a complaint of hyperglycemia. She reports that she accidentally lost and misplaced her Medtronic insulin pump a few days ago. She reports that since then she has not been able to give herself her insulin. She presents with a complaint of hyperglycemia. She states her fing ersticks are typically in the mid 100s. She denies physical pain. She denies headache, neck pain, chest pain. She has chronic abdominal distention and is scheduled for a paracentesis tomorrow. She has chronic lower extremity which she states is at her baseline. She makes no complaint of dizziness, no complaint of ataxia, and denies syncope/loss of consciousness. Her BG level was 599 and A1c around 9.1 (1) Hyperosmolar non-ketotic state in patient with type 2 diabetes mellitus Current Visit: Yes Status: Acute Plan to address problem: Patient has lost her Medtronic insulin pump Patient initiated on Novolin 70/30 25 units twice a day and 12 units of NovoLog before lunch--did well.BG levels well controlled in the range of 100 to 160 Patient also to get high-dose sliding scale protocol before each meal IV fluids were not started because of the patient's ascites and volume overload Patient found her pump and wants to go back on pump after discharge. BG levels improved (2) Hepatic failure Current Visit: Yes Status: Chronic Qualifiers: Liver failure chronicity: chronic Hepatic coma status: without hepatic coma Qualified Code(s): K72.10 - Chronic hepatic failure without coma Plan to address problem: Patient on lactulose and Xifaxin (3) Ascites Current Visit: Yes Status: Acute Qualifiers: Ascites type: other type Qualified Code(s): R18.8 - Other ascites Plan to address problem: Due to fatty liver Patient had paracentesis Symptomatic relief (4) Hypokalemia Current Visit: Yes Status: Acute Plan to address problem: Supplemented (5) BELL (acute kidney injury) Current Visit: Yes Status: Acute Plan to address problem: Given the volume overload and patient being on Lasix will defer to nephrology Improved Disposition: DC-01 TO HOME OR SELFCARE - Discharge Diagnoses (1) Hyperosmolar non-ketotic state in patient with type 2 diabetes mellitus Status: Acute (2) Hepatic failure Status: Chronic Qualifiers: Liver failure chronicity: chronic Hepatic coma status: without hepatic coma Qualified Code(s): K72.10 - Chronic hepatic failure without coma (3) Ascites Status: Acute Qualifiers: Ascites type: other type Qualified Code(s): R18.8 - Other ascites (4) Hypokalemia Status: Acute (5) BELL (acute kidney injury) Status: Acute (6) DVT prophylaxis Status: Acute Core Measure Documentation - Palliative Care Palliative Care/ Comfort Measures: Not Applicable - Core Measures Any of the following diagnoses?: none Exam - Constitutional Vitals: Temp Pulse Resp BP Pulse Ox 98.0 F 100 H 20 154/67 99 11/11/18 13:15 11/11/18 13:15 11/11/18 13:15 11/11/18 13:15 11/11/18 13:15 General appearance: Present: no acute distress, well-nourished - EENT Eyes: Present: PERRL ENT: hearing intact, clear oral mucosa - Neck Neck: Present: supple, normal ROM - Respiratory Respiratory effort: normal Respiratory: bilateral: CTA - Cardiovascular Heart rate: 78 Rhythm: regular Heart Sounds: Present: S1 & S2. Absent: rub, click - Extremities Extremities: no ischemia, pulses intact, pulses symmetrical, No edema Peripheral Pulses: within normal limits - Abdominal General gastrointestinal: Present: soft, non-tender, non-distended, normal bowel sounds Female genitourinary: Present: normal - Rectal Rectal Exam: deferred - Integumentary Integumentary: Present: clear, warm, dry - Musculoskeletal Musculoskeletal: gait normal, strength equal bilaterally - Psychiatric Psychiatric: appropriate mood/affect, intact judgment & insight - Neurologic Neurologic: CNII-XII intact, moves all extremities - Allied Health Allied health notes reviewed: nursing Plan Activity: no restrictions Diet: diabetic Follow up with: VASQUEZ SHEA MD [Staff Physician] - 3-5 Days TAYE AGUILAR MD [Staff Physician] - 3-5 Days Prescriptions: Insulin NPH Hum/Reg Insulin Hm [Novolin 70-30 Flexpen] 15 unit SQ BID #1 insuln.pen
== END 2018-11-11 18:00 | disposition home or self-care (01) | DRG 919 ==
LOC: ED 11:34 → 2B-ACE 18:25 → OBSVTOIN 11-11 09:10
PROVIDERS: ADMIT Internal Medicine; ATTEND Internal Medicine
PROC: 0W9G3ZZ Drainage of Peritoneal Cavity, Percutaneous Approach (ICD-10-PCS; principal; 2018-11-09)
DX: T85.624A Displacement of insulin pump, initial encounter (principal); E11.00 Type 2 diabetes mellitus with hyperosmolarity without nonketotic hyperglycemic-hyperosmolar coma (NKHHC); N17.9 Acute kidney failure, unspecified; R18.8 Other ascites; K74.60 Unspecified cirrhosis of liver; K76.0 Fatty (change of) liver, not elsewhere classified; K72.10 Chronic hepatic failure without coma; E87.6 Hypokalemia; E11.21 Type 2 diabetes mellitus with diabetic nephropathy; E11.65 Type 2 diabetes mellitus with hyperglycemia; N18.3 Chronic kidney disease, stage 3 (moderate); D64.9 Anemia, unspecified; E11.22 Type 2 diabetes mellitus with diabetic chronic kidney disease; I12.9 Hypertensive chronic kidney disease with stage 1 through stage 4 chronic kidney disease, or unspecified chronic kidney disease; Z79.899 Other long term (current) drug therapy; Z98.51 Tubal ligation status; Y92.89 Other specified places as the place of occurrence of the external cause; Y99.8 Other external cause status
CPT/HCPCS: 36415; 49083; 80048; 80053; 82150; 82805; 82947; 82962; 83036; 83605; 83735; 84160; 85025; 85610; 87116; 89051; 96374; 96375; 96376; G0378; J1815; J1940; J2405; J7030

== ENCOUNTER 2018-11-14 03:04 | Inpatient (IN) | payer MEDICARE ==
--- NOTE | 2018-11-14 03:23 | Emergency Department Report ---
ED Altered Mental Status HPI - General Stated Complaint: HYPERGLYCEMIA WITH AMS Time Seen by Provider: 11/14/18 03:12 - History of Present Illness Initial Comments: Patient is 68 years old female with history of liver cirrhosis, diabetes, hypertension and chronic kidney disease. Patient brought to the emergency room by EMS from home. called 911 after he woke up and found patient vomiting. Patient recently discharged from the hospital for similar presentation. Patient found to have a blood sugar more than 400. Patient is obtunded but responded to painful stimuli. Unable to obtain more history at this moment. MD Complaint: altered mental status, decreased responsiveness -: Last night Severity: moderate Consistency of Symptoms: waxing and waning Context: history of similar presen - Related Data Home Medications Medication Instructions Recorded Confirmed Last Taken Lactulose 30 ml PO BID 08/26/18 11/08/18 11/01/18 30ml Lispro Insulin [Humalog] 9 units SQ AC 08/26/18 11/08/18 11/01/18 9 units Furosemide [Lasix TAB] 40 mg PO QDAY 10/19/18 11/08/18 11/01/18 50mg Previous Rx's Medication Instructions Recorded Last Taken Type Famotidine [Pepcid] 20 mg PO DAILY #30 tablet 03/14/18 11/01/18 Rx 20mg Insulin NPH Hum/Reg Insulin Hm 15 unit SQ BID #1 insuln.pen 11/08/18 Unknown Rx [Novolin 70-30 Flexpen] Linagliptin [Tradjenta] 5 mg PO QDAY #30 tablet 11/11/18 Unknown Rx Magnesium Oxide [Mag-Ox] 400 mg PO BID #60 tablet 11/11/18 Unknown Rx Potassium Chloride [K-Dur] 20 meq PO QDAY 30 Days #30 tablet 11/11/18 Unknown Rx Rifaximin [Xifaxan] 550 mg PO BID tablet 11/11/18 Unknown Rx oxyCODONE /ACETAMINOPHEN [Percocet 1 tab PO Q6H PRN #15 tablet 11/11/18 Unknown Rx 5/325 mg] Allergies Allergy/AdvReac Type Severity Reaction Status Date / Time No Known Allergies Allergy Verified 01/26/18 09:53 ED Review of Systems ROS: Stated complaint: HYPERGLYCEMIA WITH AMS Other details as noted in HPI Comment: Unobtainable due to pts medical conditions ED Past Medical Hx - Past Medical History Hx Hypertension: Yes Hx Diabetes: Yes Hx Liver Disease: Yes Hx Renal Disease: Yes Hx Arthritis: No Hx HIV: No Additional medical history: TIPS PROCEDURE 02/2018 [facility] - Surgical History Additional Surgical History: left shoulder surgery, TUBILIGATION - Social History Smoking Status: Never Smoker - Medications Home Medications: Home Medications Medication Instructions Recorded Confirmed Last Taken Type Famotidine [Pepcid] 20 mg PO DAILY #30 tablet 03/14/18 11/08/18 11/01/18 Rx 20mg Lactulose 30 ml PO BID 08/26/18 11/08/18 11/01/18 History 30ml Lispro Insulin [Humalog] 9 units SQ AC 08/26/18 11/08/18 11/01/18 History 9 units Furosemide [Lasix TAB] 40 mg PO QDAY 10/19/18 11/08/18 11/01/18 History 50mg Insulin NPH Hum/Reg Insulin Hm 15 unit SQ BID #1 insuln.pen 11/08/18 Unknown Rx [Novolin 70-30 Flexpen] Linagliptin [Tradjenta] 5 mg PO QDAY #30 tablet 11/11/18 Unknown Rx Magnesium Oxide [Mag-Ox] 400 mg PO BID #60 tablet 11/11/18 Unknown Rx Potassium Chloride [K-Dur] 20 meq PO QDAY 30 Days #30 tablet 11/11/18 Unknown Rx Rifaximin [Xifaxan] 550 mg PO BID tablet 11/11/18 Unknown Rx oxyCODONE /ACETAMINOPHEN [Percocet 1 tab PO Q6H PRN #15 tablet 11/11/18 Unknown Rx 5/325 mg] ED Physical Exam - General Limitations: Altered Mental Status General appearance: in no apparent distress, obtunded - Head Head exam: Present: atraumatic, normocephalic, normal inspection - Eye Eye exam: Present: normal appearance - ENT ENT exam: Present: normal exam, normal orophraynx, mucous membranes moist - Neck Neck exam: Present: normal inspection, full ROM. Absent: tenderness, meningismus - Respiratory Respiratory exam: Present: normal lung sounds bilaterally - Cardiovascular Cardiovascular Exam: Present: regular rate, normal rhythm, normal heart sounds - GI/Abdominal GI/Abdominal exam: Present: soft, normal bowel sounds. Absent: distended, tenderness, guarding, rebound, rigid, organomegaly, mass, bruit, pulsatile mass, hernia - Extremities Exam Extremities exam: Present: normal inspection, full ROM, normal capillary refill - Back Exam Back exam: Present: normal inspection, full ROM. Absent: CVA tenderness (R), CVA tenderness (L) - Neurological Exam Neurological exam: Present: altered - Skin Skin exam: Present: warm, intact, normal color ED Course Vital Signs 11/14/18 03:17 Pulse Rate 81 Respiratory 15 Rate Blood Pressure 145/63 O2 Sat by Pulse 100 Oximetry - Lab Data Result diagrams: 11/14/18 03:54 11/14/18 03:54 Lab Results 11/14/18 11/14/18 11/14/18 Range/Units 03:25 03:54 03:54 WBC 3.0 L (4.5-11.0) K/mm3 RBC 2.87 L (3.65-5.03) M/mm3 Hgb 8.9 L (10.1-14.3) gm/dl Hct 25.6 L (30.3-42.9) % MCV 89 (79-97) fl MCH 31 (28-32) pg MCHC 35 H (30-34) % RDW 18.0 H (13.2-15.2) % Plt Count 68 L (140-440) K/mm3 Lymph % (Auto) 14.0 (13.4-35.0) % Love % (Auto) 13.9 H (0.0-7.3) % Eos % (Auto) 0.6 (0.0-4.3) % Baso % (Auto) 1.4 (0.0-1.8) % Lymph # 0.4 L (1.2-5.4) K/mm3 Love # 0.4 (0.0-0.8) K/mm3 Eos # 0.0 (0.0-0.4) K/mm3 Baso # 0.0 (0.0-0.1) K/mm3 Seg Neutrophils % 70.1 H (40.0-70.0) % Seg Neutrophils # 2.1 (1.8-7.7) K/mm3 PT 12.9 (12.2-14.9) Sec. INR 1.00 (0.87-1.13) APTT 21.3 L (24.2-36.6) Sec. Sodium (137-145) mmol/L Potassium (3.6-5.0) mmol/L Chloride (98-107) mmol/L Carbon Dioxide (22-30) mmol/L Anion Gap mmol/L BUN (7-17) mg/dL Creatinine (0.7-1.2) mg/dL Estimated GFR ml/min BUN/Creatinine Ratio % Glucose (65-100) mg/dL POC Glucose 385 H (70-105) Lactic Acid (0.7-2.0) mmol/L Calcium (8.4-10.2) mg/dL Total Bilirubin (0.1-1.2) mg/dL Direct Bilirubin (0-0.2) mg/dL Indirect Bilirubin mg/dL AST (5-40) units/L ALT (7-56) units/L Alkaline Phosphatase (35-129) units/L Ammonia (25-60) umol/L Troponin T (0.00-0.029) ng/mL Total Protein (6.3-8.2) g/dL Albumin (3.9-5) g/dL Albumin/Globulin Ratio % Plasma/Serum Alcohol (0-0.07) % 11/14/18 11/14/18 11/14/18 Range/Units 03:54 03:54 03:54 WBC (4.5-11.0) K/mm3 RBC (3.65-5.03) M/mm3 Hgb (10.1-14.3) gm/dl Hct (30.3-42.9) % MCV (79-97) fl MCH (28-32) pg MCHC (30-34) % RDW (13.2-15.2) % Plt Count (140-440) K/mm3 Lymph % (Auto) (13.4-35.0) % Love % (Auto) (0.0-7.3) % Eos % (Auto) (0.0-4.3) % Baso % (Auto) (0.0-1.8) % Lymph # (1.2-5.4) K/mm3 Love # (0.0-0.8) K/mm3 Eos # (0.0-0.4) K/mm3 Baso # (0.0-0.1) K/mm3 Seg Neutrophils % (40.0-70.0) % Seg Neutrophils # (1.8-7.7) K/mm3 PT (12.2-14.9) Sec. INR (0.87-1.13) APTT (24.2-36.6) Sec. Sodium 138 (137-145) mmol/L Potassium 4.2 (3.6-5.0) mmol/L Chloride 100.8 (98-107) mmol/L Carbon Dioxide 25 (22-30) mmol/L Anion Gap 16 mmol/L BUN 30 H (7-17) mg/dL Creatinine 2.1 H (0.7-1.2) mg/dL Estimated GFR 23 ml/min BUN/Creatinine Ratio 14 % Glucose 371 H (65-100) mg/dL POC Glucose (70-105) Lactic Acid 2.60 H* (0.7-2.0) mmol/L Calcium 8.1 L (8.4-10.2) mg/dL Total Bilirubin 1.00 (0.1-1.2) mg/dL Direct Bilirubin 0.4 H (0-0.2) mg/dL Indirect Bilirubin 0.6 mg/dL AST 55 H (5-40) units/L ALT 33 (7-56) units/L Alkaline Phosphatase 182 H (35-129) units/L Ammonia 226.0 H (25-60) umol/L Troponin T 0.025 (0.00-0.029) ng/mL Total Protein 5.5 L (6.3-8.2) g/dL Albumin 2.4 L (3.9-5) g/dL Albumin/Globulin Ratio 0.8 % Plasma/Serum Alcohol (0-0.07) % 11/14/18 Range/Units 03:54 WBC (4.5-11.0) K/mm3 RBC (3.65-5.03) M/mm3 Hgb (10.1-14.3) gm/dl Hct (30.3-42.9) % MCV (79-97) fl MCH (28-32) pg MCHC (30-34) % RDW (13.2-15.2) % Plt Count (140-440) K/mm3 Lymph % (Auto) (13.4-35.0) % Love % (Auto) (0.0-7.3) % Eos % (Auto) (0.0-4.3) % Baso % (Auto) (0.0-1.8) % Lymph # (1.2-5.4) K/mm3 Love # (0.0-0.8) K/mm3 Eos # (0.0-0.4) K/mm3 Baso # (0.0-0.1) K/mm3 Seg Neutrophils % (40.0-70.0) % Seg Neutrophils # (1.8-7.7) K/mm3 PT (12.2-14.9) Sec. INR (0.87-1.13) APTT (24.2-36.6) Sec. Sodium (137-145) mmol/L Potassium (3.6-5.0) mmol/L Chloride (98-107) mmol/L Carbon Dioxide (22-30) mmol/L Anion Gap mmol/L BUN (7-17) mg/dL Creatinine (0.7-1.2) mg/dL Estimated GFR ml/min BUN/Creatinine Ratio % Glucose (65-100) mg/dL POC Glucose (70-105) Lactic Acid (0.7-2.0) mmol/L Calcium (8.4-10.2) mg/dL Total Bilirubin (0.1-1.2) mg/dL Direct Bilirubin (0-0.2) mg/dL Indirect Bilirubin mg/dL AST (5-40) units/L ALT (7-56) units/L Alkaline Phosphatase (35-129) units/L Ammonia (25-60) umol/L Troponin T (0.00-0.029) ng/mL Total Protein (6.3-8.2) g/dL Albumin (3.9-5) g/dL Albumin/Globulin Ratio % Plasma/Serum Alcohol < 0.01 (0-0.07) % - EKG Data -: EKG Interpreted by Mo EKG shows normal: sinus rhythm Rate: normal Interpretation: no acute changes - Radiology Data Radiology results: report reviewed CT brain is negative for acute finding - Medical Decision Making Patient is 68 years old female with history of liver cirrhosis, diabetes, hypertension and chronic kidney disease. Patient brought to the emergency room by EMS from home. called 911 after he woke up and found patient vomiting. Patient recently discharged from the hospital for similar presentation. Patient found to have a blood sugar more than 400. Patient is obtunded but responded to painful stimuli. Unable to obtain more history at this moment. Patient received insulin. CT brain is negative for acute finding. Chest x-ray is unremarkable. Patient ammonia level is high at 220. I discussed the patient is Dr. Marylou Arenas, she agreed to admit the patient to the medical service for further management. Critical Care Time: Yes Critical care time in (mins) excluding proc time.: 30 Critical care attestation.: If time is entered above; I have spent that time in minutes in the direct care of this critically ill patient, excluding procedure time. ED Disposition Clinical Impression: Cirrhosis of liver, Hepatic failure, Hyperosmolar non-ketotic state in patient with type 2 diabetes mellitus, Altered mental status, Hepatic encephalopathy Disposition: DC-09 OP ADMIT IP TO THIS HOSP Is pt being admited?: Yes Condition: Stable Instructions: Diabetes Mellitus Type 2 in Adults (ED) Referrals: JAI HIRSCH MD [Primary Care Provider] - 3-5 Days
[2018-11-14] MEDS ORDERED: HumuLIN R IV ONE (03:37)
[2018-11-14] MEDS ORDERED: NACL 0.9% 500 ML 500 ML IV ONE (03:37)
--- NOTE | 2018-11-14 03:47 | Cat Scan Report ---
CT head/brain wo con INDICATION / CLINICAL INFORMATION: Altered Mental Status. TECHNIQUE: All CT scans at this location are performed using CT dose reduction for ALARA by means of automated e xposure control. COMPARISON: None available. FINDINGS: Ventricle size is normal. No mass or mass effect is seen. There is no evidence of intracranial hemorr dina. No obvious area of infarction is identified. Ethmoid sinusitis is present. IMPRESSION: Ethmoid sinusitis without acute intracranial abnormality Signer Name: Jenaro Oneil MD FACR Signed: 11/14/2018 3:43 AM Workstation Name: [id number]
[2018-11-14] MEDS ORDERED: ZOFRAN IV ONE (03:52)
--- NOTE | 2018-11-14 03:55 | XRay Report ---
CHEST 1 VIEW INDICATION / CLINICAL INFORMATION: Altered Mental Status. COMPARISON: None available. FINDINGS: SUPPORT DEVICES: None. HEART / MEDIASTINUM: No significant abnormality. LUNGS / PLEURA: No significant pulmonary or pleural abnormality. No pneumothorax. ADDITIONAL FINDINGS: No significant additional findings. IMPRESSION: No acute pulmonary or pleural abnormality Signer Name: Jenaro Oneil MD FACR Signed: 11/14/2018 3:51 AM Workstation Name: [id number]
[2018-11-14 04:11] LABS: Basophils % (Auto) 1.4 % (0.0-1.8); Eosinophils % (Auto) 0.6 % (0.0-4.3); Hematocrit 25.6 % (30.3-42.9); Hemoglobin 8.9 gm/dl (10.1-14.3); Lymphocytes # (Auto) 0.4 K/mm3 (1.2-5.4); Mean Corpuscular HGB Conc 35 % (30-34); Mean Corpuscular Volume 89 fl (79-97); Monocytes # (Auto) 0.4 K/mm3 (0.0-0.8); Monocytes % (Auto) 13.9 % (0.0-7.3); Red Blood Count 2.87 M/mm3 (3.65-5.03)
[2018-11-14 04:17] LABS: Platelet Count 68 K/mm3 (140-440)
[2018-11-14 04:21] LABS: Partial Thromboplastin Time 21.3 Sec. (24.2-36.6)
[2018-11-14] MEDS ORDERED: CEPHULAC PO ONE (04:33)
[2018-11-14 04:34] LABS: Albumin 2.4 g/dL (3.9-5); Bilirubin,Direct 0.4 mg/dL (0-0.2); Calcium 8.1 mg/dL (8.4-10.2)
[2018-11-14] MEDS ORDERED: SODIUM CHLORIDE FLUSH SYRINGE 10 ML IV PRN (05:21)
[2018-11-14] MEDS ORDERED: ZOFRAN IV PRN (05:21)
[2018-11-14] MEDS ORDERED: TYLENOL PO PRN (05:21)
--- NOTE | 2018-11-14 05:25 | History and Physical Report ---
History of Present Illness Date of examination: 11/14/18 History of present illness: 68 year-old man with a history of hypertension, diabetes, CKD, cirrhosis was brought to the emergency room for evaluation of confusion. LWKNT was around 9pm last night before she went to bed. is not sure if she is taking her me dications. She was just discharge from the hospital on . A review of system is unobtainable PAST MEDICAL HISTORY:hypertension, diabetes, CKD, cirrhosis PAST SURGICAL HISTORY: shoulder, tubal ligation, TIPS SOCIAL HISTORY: No alcohol,tobacco, no drug use FAMILY HISTORY: Hypertension Medications and Allergies Allergies Allergy/AdvReac Type Severity Reaction Status Date / Time No Known Allergies Allergy Verified 01/26/18 09:53 Home Medications Medication Instructions Recorded Confirmed Last Taken Type Famotidine [Pepcid] 20 mg PO DAILY #30 tablet 03/14/18 11/08/18 11/01/18 Rx 20mg Lactulose 30 ml PO BID 08/26/18 11/08/18 11/01/18 History 30ml Lispro Insulin [Humalog] 9 units SQ AC 08/26/18 11/08/18 11/01/18 History 9 units Furosemide [Lasix TAB] 40 mg PO QDAY 10/19/18 11/08/18 11/01/18 History 50mg Insulin NPH Hum/Reg Insulin Hm 15 unit SQ BID #1 insuln.pen 11/08/18 Unknown Rx [Novolin 70-30 Flexpen] Linagliptin [Tradjenta] 5 mg PO QDAY #30 tablet 11/11/18 Unknown Rx Magnesium Oxide [Mag-Ox] 400 mg PO BID #60 tablet 11/11/18 Unknown Rx Potassium Chloride [K-Dur] 20 meq PO QDAY 30 Days #30 tablet 11/11/18 Unknown Rx Rifaximin [Xifaxan] 550 mg PO BID tablet 11/11/18 Unknown Rx oxyCODONE /ACETAMINOPHEN [Percocet 1 tab PO Q6H PRN #15 tablet 11/11/18 Unknown Rx 5/325 mg] Active Meds: Active Medications Acetaminophen (Tylenol) 650 mg PO Q4H PRN PRN Reason: Pain MILD(1-3)/Fever >100.5/DE Enoxaparin Sodium (Lovenox) 30 mg SUB-Q QDAY [place] Sodium Chloride (Nacl 0.45% 1000 Ml) 1,000 mls @ 50 mls/hr IV DIRECT [place] Lactulose (Cephulac) 200 gm MD Q6H [place] Ondansetron HCl (Zofran) 4 mg IV Q8H PRN PRN Reason: Nausea And Vomiting Sodium Chloride (Sodium Chloride Flush Syringe 10 Ml) 10 ml IV BID [place] Sodium Chloride (Sodium Chloride Flush Syringe 10 Ml) 10 ml IV PRN PRN PRN Reason: LINE FLUSH Exam - Physical Exam Narrative exam: General Apperance: The patient sitting in bed no acute distress HEENT: Normocephalic, atraumatic. Pupils equally round and reactive to light, unable to do extraocular movement intact, and no sclericterus or JVD or thyromegaly or nodule. Neck supple, no carotid bruit, mucous membranes moist, no exudate or erythema Heart: S1-S2, regular is rhythm Lungs: Clear to auscultation bilaterally, breathing comfortable Abdomen: Positive bowel sounds, soft, nontender, nondistended, no organomegaly Extremities: No edema cyanosis clubbing Skin: no rash, nodule, warm and dry Neuro: somnolent - Constitutional Vitals: Temp Pulse Resp BP Pulse Ox 81 15 145/63 100 11/14/18 03:17 11/14/18 03:17 11/14/18 03:17 11/14/18 03:17 Results - Labs CBC & Chem 7: 11/14/18 03:54 11/14/18 03:54 Labs: Abnormal lab results 11/14/18 11/14/18 11/14/18 Range/Units 03:25 03:54 03:54 WBC 3.0 L (4.5-11.0) K/mm3 RBC 2.87 L (3.65-5.03) M/mm3 Hgb 8.9 L (10.1-14.3) gm/dl Hct 25.6 L (30.3-42.9) % MCHC 35 H (30-34) % RDW 18.0 H (13.2-15.2) % Plt Count 68 L (140-440) K/mm3 Warren % (Auto) 13.9 H (0.0-7.3) % Lymph # 0.4 L (1.2-5.4) K/mm3 Seg Neutrophils % 70.1 H (40.0-70.0) % APTT 21.3 L (24.2-36.6) Sec. BUN (7-17) mg/dL Creatinine (0.7-1.2) mg/dL Glucose (65-100) mg/dL POC Glucose 385 H (70-105) Lactic Acid (0.7-2.0) mmol/L Calcium (8.4-10.2) mg/dL Direct Bilirubin (0-0.2) mg/dL AST (5-40) units/L Alkaline Phosphatase (35-129) units/L Ammonia (25-60) umol/L Total Protein (6.3-8.2) g/dL Albumin (3.9-5) g/dL 11/14/18 11/14/18 11/14/18 Range/Units 03:54 03:54 03:54 WBC (4.5-11.0) K/mm3 RBC (3.65-5.03) M/mm3 Hgb (10.1-14.3) gm/dl Hct (30.3-42.9) % MCHC (30-34) % RDW (13.2-15.2) % Plt Count (140-440) K/mm3 Warren % (Auto) (0.0-7.3) % Lymph # (1.2-5.4) K/mm3 Seg Neutrophils % (40.0-70.0) % APTT (24.2-36.6) Sec. BUN 30 H (7-17) mg/dL Creatinine 2.1 H (0.7-1.2) mg/dL Glucose 371 H (65-100) mg/dL POC Glucose (70-105) Lactic Acid 2.60 H* (0.7-2.0) mmol/L Calcium 8.1 L (8.4-10.2) mg/dL Direct Bilirubin 0.4 H (0-0.2) mg/dL AST 55 H (5-40) units/L Alkaline Phosphatase 182 H (35-129) units/L Ammonia 226.0 H (25-60) umol/L Total Protein 5.5 L (6.3-8.2) g/dL Albumin 2.4 L (3.9-5) g/dL 07/28/19 Range/Units 04:35 WBC (4.5-11.0) K/mm3 RBC (3.65-5.03) M/mm3 Hgb (10.1-14.3) gm/dl Hct (30.3-42.9) % MCHC (30-34) % RDW (13.2-15.2) % Plt Count (140-440) K/mm3 Warren % (Auto) (0.0-7.3) % Lymph # (1.2-5.4) K/mm3 Seg Neutrophils % (40.0-70.0) % APTT (24.2-36.6) Sec. BUN (7-17) mg/dL Creatinine (0.7-1.2) mg/dL Glucose (65-100) mg/dL POC Glucose (70-105) Lactic Acid 2.70 H* (0.7-2.0) mmol/L Calcium (8.4-10.2) mg/dL Direct Bilirubin (0-0.2) mg/dL AST (5-40) units/L Alkaline Phosphatase (35-129) units/L Ammonia (25-60) umol/L Total Protein (6.3-8.2) g/dL Albumin (3.9-5) g/dL - Imaging and Cardiology Chest x-ray: report reviewed CT Scan - head: report reviewed Assessment and Plan Assessment Hepatic Encephalopathy Diabetes hypertension Cirrhosis Thrombocytopenia Plan Admit to medicine Start lactulose, gentle IV fluid Check fingersticks, DVT prophalaxis Elevated lactic acid, no s/s of infection
[2018-11-14 05:27] LABS: Bilirubin,Urine NEG (Negative); Blood,Urine SM (Negative); Color,Urine Yellow (Yellow); Protein,Urine <15 mg/dL mg/dL (Negative); WBC,Urine < 1.0 /HPF (0.0-6.0)
[2018-11-14 05:34] LABS: Amphetamine Screen,Urine PRESUMPTIVE NEGATIVE; Benzodiazepines Screen,Urine PRESUMPTIVE NEGATIVE; Cannabinoid Screen,Urine PRESUMPTIVE NEGATIVE; Cocaine Screen,Urine PRESUMPTIVE NEGATIVE; Methadone Screen,Urine PRESUMPTIVE NEGATIVE; Opiate Screen,Urine PRESUMPTIVE NEGATIVE
[2018-11-14] MEDS ORDERED: D50W (25GM) Syringe IV PRN (06:08)
[2018-11-14] MEDS ORDERED: LOVENOX SUB-Q SCH (10:00)
[2018-11-14] MEDS: HumaLOG SUB-Q SCH ×4 (10:09→23:52)
[2018-11-14] MEDS: SODIUM CHLORIDE FLUSH SYRINGE 10 ML IV SCH ×2 (10:09→23:52)
[2018-11-14] MEDS: NACL 0.45% 1000 ML 1,000 ML IV SCH ×2 (11:34→23:51)
[2018-11-14] MEDS: CEPHULAC PR SCH ×3 (11:41→21:04)
--- NOTE | 2018-11-14 12:55 | Event Note ---
Date: 11/14/18 reevaluated Hepatic Encephalopathy Diabetes hypertension Cirrhosis Thrombocytopenia Plan Admit to medicine Start lactulose, gentle IV fluid Check fingersticks, DVT prophalaxis Elevated lactic acid, no s/s of infection
[2018-11-15] MEDS: CEPHULAC PR SCH (04:10)
[2018-11-15 06:26] LABS: Basophils % (Auto) 1.1 % (0.0-1.8); Eosinophils # (Auto) 0.1 K/mm3 (0.0-0.4); Eosinophils % (Auto) 1.7 % (0.0-4.3); Hematocrit 23.5 % (30.3-42.9); Lymphocytes # (Auto) 0.5 K/mm3 (1.2-5.4); Lymphocytes % (Auto) 12.5 % (13.4-35.0); Mean Corpuscular HGB Conc 34 % (30-34); Mean Corpuscular Volume 90 fl (79-97); Monocytes # (Auto) 0.6 K/mm3 (0.0-0.8); Monocytes % (Auto) 14.1 % (0.0-7.3); Platelet Count 71 K/mm3 (140-440); Red Cell Distribution Width 17.9 % (13.2-15.2)
[2018-11-15 06:51] LABS: Calcium 8.2 mg/dL (8.4-10.2)
[2018-11-15] MEDS: HumaLOG SUB-Q SCH ×6 (08:18→23:37)
--- NOTE | 2018-11-15 08:41 | Progress Note ---
Assessment and Plan - Patient Problems (1) Hepatic encephalopathy Current Visit: Yes Status: Acute Plan to address problem: COntinue Lactulose Patient noncompliant Missed Lactulose for 4 days (2) IDDM (insulin dependent diabetes mellitus) Current Visit: Yes Status: Acute Plan to address problem: Cont coverage (3) Cirrhosis of liver Current Visit: Yes Status: Chronic Plan to address problem: On Furosemide (4) DVT prophylaxis Current Visit: No Status: Acute Plan to address problem: On Lovenox and GI prophylaxis Subjective Date of service: 11/15/18 Principal diagnosis: hepatic Encephalopathy Interval history: More alert and oriented today Objective - Constitutional Vitals: Vital Signs - 12hr 11/15/18 11/15/18 02:16 07:59 Temperature 97.6 F 98.0 F Pulse Rate 86 96 H Respiratory 18 20 Rate Blood Pressure 155/73 168/80 O2 Sat by Pulse 100 100 Oximetry General appearance: Present: no acute distress, well-nourished - EENT Eyes: PERRL, EOM intact ENT: hearing intact, clear oral mucosa Ears: bilateral: normal - Neck Neck: supple, normal ROM - Respiratory Respiratory effort: normal Respiratory: bilateral: CTA - Breasts Breasts: normal - Cardiovascular Heart rate: 78 Rhythm: regular Heart Sounds: Present: S1 & S2. Absent: gallop, rub Extremities: no ischemia, pulses intact, No edema, normal color, Full ROM - Gastrointestinal General gastrointestinal: Present: soft, non-tender, non-distended, normal bowel sounds Rectal Exam: deferred - Genitourinary Female genitourinary: normal - Integumentary Integumentary: clear, warm, dry - Musculoskeletal Musculoskeletal: 1, strength equal bilaterally - Neurologic Neurologic: moves all extremities - Psychiatric Psychiatric: memory intact, appropriate mood/affect, intact judgment & insight - Labs CBC & Chem 7: 11/15/18 06:07 11/15/18 06:07 Labs: Abnormal lab results 11/14/18 11/14/18 11/14/18 Range/Units 08:47 09:08 11:22 WBC (4.5-11.0) K/mm3 RBC (3.65-5.03) M/mm3 Hgb (10.1-14.3) gm/dl Hct (30.3-42.9) % RDW (13.2-15.2) % Plt Count (140-440) K/mm3 Lymph % (Auto) (13.4-35.0) % [place] % (Auto) (0.0-7.3) % Lymph # (1.2-5.4) K/mm3 Seg Neutrophils % (40.0-70.0) % Chloride (98-107) mmol/L BUN (7-17) mg/dL Creatinine (0.7-1.2) mg/dL Glucose (65-100) mg/dL POC Glucose 389 H 338 H (70-105) Lactic Acid 2.50 H* (0.7-2.0) mmol/L Calcium (8.4-10.2) mg/dL 11/14/18 11/14/18 11/14/18 Range/Units 13:54 16:41 21:25 WBC (4.5-11.0) K/mm3 RBC (3.65-5.03) M/mm3 Hgb (10.1-14.3) gm/dl Hct (30.3-42.9) % RDW (13.2-15.2) % Plt Count (140-440) K/mm3 Lymph % (Auto) (13.4-35.0) % [place] % (Auto) (0.0-7.3) % Lymph # (1.2-5.4) K/mm3 Seg Neutrophils % (40.0-70.0) % Chloride (98-107) mmol/L BUN (7-17) mg/dL Creatinine (0.7-1.2) mg/dL Glucose (65-100) mg/dL POC Glucose 207 H 220 H (70-105) Lactic Acid 2.70 H* (0.7-2.0) mmol/L Calcium (8.4-10.2) mg/dL 11/15/18 11/15/18 11/15/18 Range/Units 06:07 06:07 08:03 WBC 4.2 L (4.5-11.0) K/mm3 RBC 2.60 L (3.65-5.03) M/mm3 Hgb 8.0 L (10.1-14.3) gm/dl Hct 23.5 L (30.3-42.9) % RDW 17.9 H (13.2-15.2) % Plt Count 71 L (140-440) K/mm3 Lymph % (Auto) 12.5 L (13.4-35.0) % [place] % (Auto) 14.1 H (0.0-7.3) % Lymph # 0.5 L (1.2-5.4) K/mm3 Seg Neutrophils % 70.6 H (40.0-70.0) % Chloride 109.0 H (98-107) mmol/L BUN 29 H (7-17) mg/dL Creatinine 1.7 H (0.7-1.2) mg/dL Glucose 218 H (65-100) mg/dL POC Glucose 245 H (70-105) Lactic Acid (0.7-2.0) mmol/L Calcium 8.2 L (8.4-10.2) mg/dL
[2018-11-15] MEDS: LASIX PO SCH (09:55)
[2018-11-15] MEDS: MAG-OX PO SCH ×2 (09:55→23:35)
[2018-11-15] MEDS: PEPCID PO SCH (09:55)
[2018-11-15] MEDS ORDERED: REG INSULIN SQ SCH (10:00)
[2018-11-15] MEDS ORDERED: INSULIN NPH HUM SQ SCH (10:00)
[2018-11-15] MEDS ORDERED: K-DUR PO SCH (10:00)
[2018-11-15] MEDS: SODIUM CHLORIDE FLUSH SYRINGE 10 ML IV SCH ×2 (10:01→23:35)
[2018-11-15] MEDS: CEPHULAC PO SCH ×3 (10:53→23:34)
[2018-11-15] MEDS ORDERED: PNEUMOVAX 23 IM ONE (12:00)
[2018-11-16] MEDS: CEPHULAC PR SCH (00:13)
[2018-11-16 05:22] LABS: Basophils % (Auto) 1.1 % (0.0-1.8); Eosinophils # (Auto) 0.1 K/mm3 (0.0-0.4); Eosinophils % (Auto) 2.6 % (0.0-4.3); Hematocrit 22.8 % (30.3-42.9); Hemoglobin 7.7 gm/dl (10.1-14.3); Lymphocytes # (Auto) 0.7 K/mm3 (1.2-5.4); Lymphocytes % (Auto) 18.1 % (13.4-35.0); Mean Corpuscular HGB Conc 34 % (30-34); Mean Corpuscular Volume 90 fl (79-97); Monocytes # (Auto) 0.6 K/mm3 (0.0-0.8); Monocytes % (Auto) 14.6 % (0.0-7.3); Red Blood Count 2.53 M/mm3 (3.65-5.03); Red Cell Distribution Width 18.1 % (13.2-15.2)
[2018-11-16 05:23] LABS: Platelet Count 80 K/mm3 (140-440)
[2018-11-16 05:49] LABS: Albumin 1.9 g/dL (3.9-5); Calcium 7.8 mg/dL (8.4-10.2)
[2018-11-16 08:08] VITALS: BP 145/69
[2018-11-16] MEDS ORDERED: K-DUR PO SCH (09:00)
[2018-11-16] MEDS: HumaLOG SUB-Q SCH ×4 (09:06→13:02)
[2018-11-16] MEDS: CEPHULAC PO SCH ×2 (09:07→13:02)
[2018-11-16] MEDS: LASIX PO SCH (09:08)
[2018-11-16] MEDS: PEPCID PO SCH (09:08)
[2018-11-16] MEDS: MAG-OX PO SCH (09:08)
[2018-11-16] MEDS: SODIUM CHLORIDE FLUSH SYRINGE 10 ML IV SCH (09:09)
--- NOTE | 2018-11-16 10:47 | Progress Note ---
Assessment and Plan Assessment and plan: Hepatic Encephalopathy Acute toxic metabolic encephalopathy from hyperammonia Diabetes hypertension Cirrhosis Thrombocytopenia Hypernatremia Hypokalemia Ascitis. Plan Admitted to [facility] unit Continue lactulose, gentle IV fluid Start D5W for hypernatremia Increase Novolin 70/30 to 25 Units bid Check fingersticks, DVT prophalaxis Elevated lactic acid, no s/s of infection consult GI to see. She had scheduled paracentesis that was supposed to be done as outpatient today History Interval history: Less confused abdominal distension Hospitalist Physical - Physical exam Narrative exam: Gen: Not in acute distress, sitting up in bed, obese HEENT: Normocephalic, atraumatic Neck: supple, no JVD Heart: S1 and S2 reg, no murmurs, rubs or gallop Lungs: Clear to auscultation, no wheeze Abd: soft, non tender, mild distension, normal BS, Ext: No edema, no clubbing, no cyanosis Neuro: Awake,alert, Oriented in person, place, not time, mild confused. - Constitutional Vitals: Temp Pulse Resp BP Pulse Ox 98.2 F 98 H 16 145/69 97 11/16/18 02:02 11/16/18 07:53 11/16/18 07:53 11/16/18 07:53 11/16/18 07:53 General appearance: Present: no acute distress, well-nourished Results - Labs CBC & Chem 7: 11/16/18 04:49 11/16/18 04:49 Labs: Laboratory Last Values WBC 3.9 K/mm3 (4.5-11.0) L 11/16/18 04:49 RBC 2.53 M/mm3 (3.65-5.03) L 11/16/18 04:49 Hgb 7.7 gm/dl (10.1-14.3) L 11/16/18 04:49 Hct 22.8 % (30.3-42.9) L 11/16/18 04:49 MCV 90 fl (79-97) 11/16/18 04:49 MCH 31 pg (28-32) 11/16/18 04:49 MCHC 34 % (30-34) 11/16/18 04:49 RDW 18.1 % (13.2-15.2) H 11/16/18 04:49 Plt Count 80 K/mm3 (140-440) L 11/16/18 04:49 Lymph % (Auto) 18.1 % (13.4-35.0) 11/16/18 04:49 Carbon % (Auto) 14.6 % (0.0-7.3) H 11/16/18 04:49 Eos % (Auto) 2.6 % (0.0-4.3) 11/16/18 04:49 Baso % (Auto) 1.1 % (0.0-1.8) 11/16/18 04:49 Lymph # 0.7 K/mm3 (1.2-5.4) L 11/16/18 04:49 Carbon # 0.6 K/mm3 (0.0-0.8) 11/16/18 04:49 Eos # 0.1 K/mm3 (0.0-0.4) 11/16/18 04:49 Baso # 0.0 K/mm3 (0.0-0.1) 11/16/18 04:49 Seg Neutrophils % 63.6 % (40.0-70.0) 11/16/18 04:49 Seg Neutrophils # 2.5 K/mm3 (1.8-7.7) 11/16/18 04:49 PT 12.9 Sec. (12.2-14.9) 11/14/18 03:54 INR 1.00 (0.87-1.13) 11/14/18 03:54 APTT 21.3 Sec. (24.2-36.6) L 11/14/18 03:54 Sodium 147 mmol/L (137-145) H 11/16/18 04:49 Potassium 3.2 mmol/L (3.6-5.0) L D 11/16/18 04:49 Chloride 112.9 mmol/L (98-107) H 11/16/18 04:49 Carbon Dioxide 26 mmol/L (22-30) 11/16/18 04:49 11 mmol/L 11/16/18 04:49 BUN 28 mg/dL (7-17) H 11/16/18 04:49 1.5 mg/dL (0.7-1.2) H 11/16/18 04:49 Estimated GFR 34 ml/min 11/16/18 04:49 19 % 11/16/18 04:49 Glucose 176 mg/dL (65-100) H 11/16/18 04:49 POC Glucose 248 (70-105) H 11/16/18 07:51 Lactic Acid 1.70 mmol/L (0.7-2.0) 11/14/18 17:59 Calcium 7.8 mg/dL (8.4-10.2) L 11/16/18 04:49 1.40 mg/dL (0.1-1.2) H 11/16/18 04:49 0.4 mg/dL (0-0.2) H 11/14/18 03:54 0.6 mg/dL 11/14/18 03:54 AST 71 units/L (5-40) H 11/16/18 04:49 ALT 30 units/L (7-56) 11/16/18 04:49 169 units/L (35-129) H 11/16/18 04:49 57.0 umol/L (25-60) 11/16/18 04:49 0.025 ng/mL (0.00-0.029) 11/14/18 03:54 5.1 g/dL (6.3-8.2) L 11/16/18 04:49 1.9 g/dL (3.9-5) L 11/16/18 04:49 0.6 % 11/16/18 04:49 Yellow (Yellow) 11/14/18 04:58 Clear (Clear) 11/14/18 04:58 7.0 (5.0-7.0) 11/14/18 04:58 Ur Specific Rheems 1.014 (1.003-1.030) 11/14/18 04:58 <15 mg/dl mg/dL (Negative) 11/14/18 04:58 >=500 mg/dL (Negative) 11/14/18 04:58 Neg mg/dL (Negative) 11/14/18 04:58 Sm (Negative) 11/14/18 04:58 Neg (Negative) 11/14/18 04:58 Neg (Negative) 11/14/18 04:58 2.0 mg/dL (<2.0) 11/14/18 04:58 Ur Leukocyte Esterase Neg (Negative) 11/14/18 04:58 < 1.0 /HPF (0.0-6.0) 11/14/18 04:58 4.0 /HPF (0.0-6.0) 11/14/18 04:58 Presumptive negative 11/14/18 04:58 Presumptive negative 11/14/18 04:58 Ur Barbiturates Screen Presumptive negative 11/14/18 04:58 Ur Phencyclidine Scrn Presumptive negative 11/14/18 04:58 Ur Amphetamines Screen Presumptive negative 11/14/18 04:58 U Benzodiazepines Scrn Presumptive negative 11/14/18 04:58 Presumptive negative 11/14/18 04:58 U Marijuana (THC) Screen Presumptive negative 11/14/18 04:58 Disclamer 11/14/18 04:58 Plasma/Serum Alcohol < 0.01 % (0-0.07) 11/14/18 03:54 Active Medications - Current Medications Current Medications: Generic Name Dose Route Start Last Admin Trade Name Freq PRN Reason Stop Dose Admin Acetaminophen 650 mg 11/14/18 05:21 Tylenol PO Q4H PRN Pain MILD(1-3)/Fever >100.5/DE Dextrose 50 ml 11/14/18 06:08 D50w (25gm) Syringe IV PRN PRN Hypoglycemia Famotidine 20 mg 11/15/18 10:00 11/16/18 09:08 Pepcid PO 20 mg DAILY [facility] Administration Furosemide 40 mg 11/15/18 10:00 11/16/18 09:08 Lasix PO 40 mg QDAY [facility] Administration Sodium Chloride 1,000 mls @ 50 mls/hr 11/14/18 06:00 11/14/18 23:51 Nacl 0.45% 1000 Ml IV 50 mls/hr DIRECT [facility] Administration Insulin Human Isoph/Insulin Regular 15 unit 11/15/18 11:30 11/16/18 09:07 Humulin 70/30 SUB-Q 15 unit BIDDIAB [facility] Administration Insulin Human Lispro 0 unit 11/14/18 09:16 11/16/18 09:06 Humalog SUB-Q 3 unit ACHS [facility] Administration Protocol Insulin Human Lispro 9 unit 11/15/18 11:30 11/16/18 09:07 Humalog SUB-Q 9 unit AC [facility] Administration Lactulose 60 gm 11/15/18 11:00 11/16/18 09:07 Cephulac PO 60 gm QID [facility] Administration Magnesium Oxide 400 mg 11/15/18 10:00 11/16/18 09:08 Mag-Ox PO 400 mg BID [facility] Administration Ondansetron HCl 4 mg 11/14/18 05:21 Zofran IV Q8H PRN Nausea And Vomiting Potassium Chloride 40 meq 11/16/18 09:00 11/16/18 09:08 K-Dur PO 11/16/18 15:01 40 meq Q6H [facility] Administration Sodium Chloride 10 ml 11/14/18 10:00 11/16/18 09:09 Sodium Chloride Flush Syringe 10 Ml IV 10 ml BID [facility] Administration Sodium Chloride 10 ml 11/14/18 05:21 Sodium Chloride Flush Syringe 10 Ml IV PRN PRN LINE FLUSH
[2018-11-16] MEDS ORDERED: D5W 1,000 ML IV SCH (16:00)
--- NOTE | 2018-11-16 16:18 | Event Note ---
Date: 11/16/[address] Cabrera, GI. He states patient may go home from GI standpoint.
--- NOTE | 2018-11-16 16:20 | Discharge Summary ---
Providers - Providers Date of Admission: 11/14/18 05:21 Date of discharge: 11/16/18 Attending physician: MARY CARMEN ROSARIO 11/15/18 08:48 Physical Therapy Evaluation and Treat [CONS] Routine Comment: Reason For Exam: debility 11/16/18 10:46 Consult to Physician [CONS] Routine Comment: called office/ cristy Consulting Provider: GARY CASTELLANO Physician Instructions: Reason For Exam: hepatic encephalopathy Primary care physician: JAI HIRSCH Hospitalization Condition: Fair Hospital course: 68 year-old man with a history of hypertension, diabetes, CKD, cirrhosis was brought to the emergency room for evaluation of confusion. She was just discharge from the hospital few days previously. labs show hepatic encephalopathy with Ammonia of 226. She was given Lactulose, mental status improved. She then mentioned she has not taken Lactulose in days. She was re- evaluated on 11/16/18, was awake,alert,oriented X 3, stable, therefore discharged home to follow as outpatient. Total time spent on discharge, 33 mins Disposition: DC- TO HOME OR SELFCARE - Discharge Diagnoses (1) BELL (acute kidney injury) Status: Acute (2) Hepatic encephalopathy Status: Acute (3) Hypokalemia Status: Acute (4) IDDM (insulin dependent diabetes mellitus) Status: Acute (5) T2DM (type 2 diabetes mellitus) Status: Chronic Qualifiers: Diabetes mellitus keno terminal operator insulin use: without keno terminal operator use (6) Thrombocytopenia Status: Acute (7) Ascites Status: Acute Qualifiers: Ascites type: other type Qualified Code(s): R18.8 - Other ascites (8) Ascites Status: Chronic Qualifiers: Ascites type: due to alcoholic cirrhosis Qualified Code(s): K70.31 - Alcoholic cirrhosis of liver with ascites (9) Cirrhosis of liver Status: Chronic Core Measure Documentation - Palliative Care Palliative Care/ Comfort Measures: Not Applicable - Core Measures Any of the following diagnoses?: none Exam - Constitutional Vitals: Temp Pulse Resp BP Pulse Ox 98.2 F 98 H 16 145/69 97 11/16/18 02:02 11/16/18 07:53 11/16/18 07:53 11/16/18 07:53 11/16/18 07:53 Plan Activity: advance as tolerated Diet: low fat, low cholesterol, low salt, diabetic Additional Instructions: 1.Follow up with PCP in 1 week. 2.Follow up with Dr. Huang in 1-2 days to reschedule outpatient paracentesis Follow up with: JAI HIRSCH MD [Primary Care Provider] - 3-5 Days
--- NOTE | 2018-11-16 16:54 | Consultation ---
History of Present Illness - Reason for Consult Consult date: 11/16/18 Hepatic encephalopathy Requesting physician: MARY CARMEN LEVY - History of Present Illness Ms Bran is a 68-year-old woman with a known history of cirrhosis secondary to TYLER who was admitted with hypoglycemia and altered mental status on November 14. She also had vomiting at home. Here, she was found to be hyperglycemic with a glucose greater than 400, and an ammonia level of 226. Sugar was controlled and she was given lactulose. Her ammonia has dropped down to normal at 57 today. Her mental status is back to normal today according to her and her . She had just been discharged prior to the admission several days earlier for hyperglycemia. On November 12, patient had eaten a blizzard at [employer] as a treat, and states that she became a little bit confused and did not take her lactulose. This led to the events that caused her admission. She denies abdominal pain nausea vomiting fevers chills or sweats. She has no dysuria or diarrhea. She is getting frequent paracentesis and was last paracentesis a week ago. She follows up routinely with Dr. Huang in our office for her cirrhosis. She is normally on lactulose. Meds reviewed. Past History Past Medical History: diabetes, hypertension, other (Hepatorenal syndrome) Past Surgical History: Other (TIPSS - 02/2018 - needs to be verified) Social history: Family history: no significant family history Medications and Allergies Allergies Allergy/AdvReac Type Severity Reaction Status Date / Time No Known Allergies Allergy Verified 01/26/18 09:53 Home Medications Medication Instructions Recorded Confirmed Last Taken Type Famotidine [Pepcid] 20 mg PO DAILY #30 tablet 03/14/18 11/14/18 11/01/18 Rx 20mg Lactulose 30 ml PO BID 08/26/18 11/14/18 11/01/18 History 30ml Lispro Insulin [HumaLOG] 9 units SQ AC 08/26/18 11/14/18 11/01/18 History 9 units Furosemide [Lasix TAB] 40 mg PO QDAY 10/19/18 11/14/18 11/01/18 History 50mg Insulin NPH Hum/Reg Insulin Hm 15 unit SQ BID #1 insuln.pen 11/08/18 11/14/18 Unknown Rx [Novolin 70-30 Flexpen] Linagliptin [Tradjenta] 5 mg PO QDAY #30 tablet 11/11/18 11/14/18 Unknown Rx Magnesium Oxide [Mag-Ox] 400 mg PO BID #60 tablet 11/11/18 11/14/18 Unknown Rx Potassium Chloride [K-Dur] 20 meq PO QDAY 30 Days #30 tablet 11/11/18 11/14/18 Unknown Rx Rifaximin [Xifaxan] 550 mg PO BID tablet 11/11/18 11/14/18 Unknown Rx oxyCODONE /ACETAMINOPHEN [Percocet 1 tab PO Q6H PRN #15 tablet 11/11/18 11/14/18 Unknown Rx 5/325 mg] Active Meds: Active Medications Acetaminophen (Tylenol) 650 mg PO Q4H PRN PRN Reason: Pain MILD(1-3)/Fever >100.5/DE Dextrose (D50w (25gm) Syringe) 50 ml IV PRN PRN PRN Reason: Hypoglycemia Famotidine (Pepcid) 20 mg PO DAILY [facility] Last Admin: 11/16/18 09:08 Dose: 20 mg Documented by: Furosemide (Lasix) 40 mg PO QDAY [facility] Last Admin: 11/16/18 09:08 Dose: 40 mg Documented by: Dextrose (D5w) 1,000 mls @ 75 mls/hr IV DIRECT [facility] Insulin Human Isoph/Insulin Regular (Humulin 70/30) 25 unit SUB-Q BIDDIAB [facility] Insulin Human Lispro (Humalog) 0 unit SUB-Q ACHS [facility]; Protocol Last Admin: 11/16/18 13:01 Dose: 3 unit Documented by: Insulin Human Lispro (Humalog) 9 unit SUB-Q AC [facility] Last Admin: 11/16/18 13:02 Dose: 9 unit Documented by: Lactulose (Cephulac) 60 gm PO QID [facility] Last Admin: 11/16/18 13:02 Dose: 60 gm Documented by: Magnesium Oxide (Mag-Ox) 400 mg PO BID [facility] Last Admin: 11/16/18 09:08 Dose: 400 mg Documented by: Ondansetron HCl (Zofran) 4 mg IV Q8H PRN PRN Reason: Nausea And Vomiting Sodium Chloride (Sodium Chloride Flush Syringe 10 Ml) 10 ml IV BID [facility] Last Admin: 11/16/18 09:09 Dose: 10 ml Documented by: Sodium Chloride (Sodium Chloride Flush Syringe 10 Ml) 10 ml IV PRN PRN PRN Reason: LINE FLUSH Review of Systems All systems: negative (as noted in HPI) Exam - Constitutional Vitals: Temp Pulse Resp BP Pulse Ox 98.2 F 98 H 16 145/69 97 11/16/18 02:02 11/16/18 07:53 11/16/18 07:53 11/16/18 07:53 11/16/18 07:53 General appearance: Present: no acute distress - EENT Eyes: Present: PERRL, EOM intact ENT: hearing intact - Respiratory Respiratory effort: normal Respiratory: bilateral: CTA - Cardiovascular Rhythm: regular Heart Sounds: Present: S1 & S2 - Extremities Extremity abnormal: edema (3+ bilaterally) - Abdominal General gastrointestinal: Present: soft, non-tender, distended (mildly) Results - Labs CBC & Chem 7: 11/16/18 04:49 11/16/18 04:49 Labs: Abnormal lab results 11/15/18 11/15/18 11/16/18 Range/Units 16:56 22:02 04:49 WBC 3.9 L (4.5-11.0) K/mm3 RBC 2.53 L (3.65-5.03) M/mm3 Hgb 7.7 L (10.1-14.3) gm/dl Hct 22.8 L (30.3-42.9) % RDW 18.1 H (13.2-15.2) % Plt Count 80 L (140-440) K/mm3 [place] % (Auto) 14.6 H (0.0-7.3) % Lymph # 0.7 L (1.2-5.4) K/mm3 Sodium (137-145) mmol/L Potassium (3.6-5.0) mmol/L Chloride (98-107) mmol/L BUN (7-17) mg/dL Creatinine (0.7-1.2) mg/dL Glucose (65-100) mg/dL POC Glucose 238 H 162 H (70-105) Calcium (8.4-10.2) mg/dL Total Bilirubin (0.1-1.2) mg/dL AST (5-40) units/L Alkaline Phosphatase (35-129) units/L Total Protein (6.3-8.2) g/dL Albumin (3.9-5) g/dL 11/16/18 11/16/18 11/16/18 Range/Units 04:49 07:51 11:43 WBC (4.5-11.0) K/mm3 RBC (3.65-5.03) M/mm3 Hgb (10.1-14.3) gm/dl Hct (30.3-42.9) % RDW (13.2-15.2) % Plt Count (140-440) K/mm3 [place] % (Auto) (0.0-7.3) % Lymph # (1.2-5.4) K/mm3 Sodium 147 H (137-145) mmol/L Potassium 3.2 L D (3.6-5.0) mmol/L Chloride 112.9 H (98-107) mmol/L BUN 28 H (7-17) mg/dL Creatinine 1.5 H (0.7-1.2) mg/dL Glucose 176 H (65-100) mg/dL POC Glucose 248 H 240 H (70-105) Calcium 7.8 L (8.4-10.2) mg/dL Total Bilirubin 1.40 H (0.1-1.2) mg/dL AST 71 H (5-40) units/L Alkaline Phosphatase 169 H (35-129) units/L Total Protein 5.1 L (6.3-8.2) g/dL Albumin 1.9 L (3.9-5) g/dL 11/16/18 Range/Units 16:29 WBC (4.5-11.0) K/mm3 RBC (3.65-5.03) M/mm3 Hgb (10.1-14.3) gm/dl Hct (30.3-42.9) % RDW (13.2-15.2) % Plt Count (140-440) K/mm3 [place] % (Auto) (0.0-7.3) % Lymph # (1.2-5.4) K/mm3 Sodium (137-145) mmol/L Potassium (3.6-5.0) mmol/L Chloride (98-107) mmol/L BUN (7-17) mg/dL Creatinine (0.7-1.2) mg/dL Glucose (65-100) mg/dL POC Glucose 158 H (70-105) Calcium (8.4-10.2) mg/dL Total Bilirubin (0.1-1.2) mg/dL AST (5-40) units/L Alkaline Phosphatase (35-129) units/L Total Protein (6.3-8.2) g/dL Albumin (3.9-5) g/dL Assessment and Plan 1. Hepatic encephalopathydue to poorly controlled diabetes resulting in mild confusion and lack of compliance with ongoing lactulose. She is doing well now. She was advised to be more diligent about diabetic control, and to take the lactulose daily to ensure 2-3 soft bowel movements a day. 2. Cirrhosiswith chronic ascites requiring repeated paracentesis. Continue ongoing outpatient follow-up with Dr. Huang. Discussed with Dr. Levy. Okay to discharge from GI standpoint. We'll sign o ff.
== END 2018-11-16 17:25 | disposition home or self-care (01) | DRG 441 ==
LOC: ED 03:04 → 2B-ACE 05:21
PROVIDERS: ADMIT Internal Medicine; ATTEND Internal Medicine
PROC: 3E0234Z Introduction of Serum, Toxoid and Vaccine into Muscle, Percutaneous Approach (ICD-10-PCS; principal; 2018-11-15)
DX: K72.90 Hepatic failure, unspecified without coma (principal); E11.00 Type 2 diabetes mellitus with hyperosmolarity without nonketotic hyperglycemic-hyperosmolar coma (NKHHC); G92 Toxic encephalopathy; R18.8 Other ascites; E72.20 Disorder of urea cycle metabolism, unspecified; E87.0 Hyperosmolality and hypernatremia; N17.9 Acute kidney failure, unspecified; K74.60 Unspecified cirrhosis of liver; D69.6 Thrombocytopenia, unspecified; E87.6 Hypokalemia; I12.9 Hypertensive chronic kidney disease with stage 1 through stage 4 chronic kidney disease, or unspecified chronic kidney disease; N18.9 Chronic kidney disease, unspecified; E11.22 Type 2 diabetes mellitus with diabetic chronic kidney disease; Z23 Encounter for immunization; Z79.899 Other long term (current) drug therapy; Z79.4 Long term (current) use of insulin; Z91.14 Patient's other noncompliance with medication regimen; Z98.51 Tubal ligation status; Z82.49 Family history of ischemic heart disease and other diseases of the circulatory system
CPT/HCPCS: 36415; 70450; 71045; 80048; 80053; 80076; 80307; 80320; 81001; 82140; 82962; 84484; 85025; 85610; 85730; 87040; 90732; 93005; 93010; 94760; 96374; 96375; G0378; G0480; J1815; J2405; J7030; J7040

== ENCOUNTER 2018-11-23 07:13 | Day surgery (SDC) | payer MEDICARE ==
[2018-11-23] MEDS ORDERED: XYLOCAINE 1% 20 mL ONE (09:46)
[2018-11-23] MEDS ORDERED: ALBURX 25% (ALBUMIN) IV PRN (11:48)
--- NOTE | 2018-11-23 11:48 | Short Stay Summary ---
Short Stay Documentation Date of service: 11/23/18 Narrative H&P: cirrhosis with ascites - History Principal diagnosis: ascites Past Medical History: liver disease - Allergies and Medications Current Medications: Allergies No Known Allergies Allergy (Verified 01/26/18 09:53) Home Medications Medication Instructions Recorded Confirmed Last Taken Type Famotidine [Pepcid] 20 mg PO DAILY #30 tablet 03/14/18 11/23/18 11/22/18 Rx 1 tab Lactulose 30 ml PO BID 08/26/18 11/23/18 11/22/18 History 1 tab Lispro Insulin [HumaLOG] 9 units SQ AC 08/26/18 11/23/18 11/22/18 History Furosemide [Lasix TAB] 40 mg PO QDAY 10/19/18 11/23/18 11/22/18 History 1 tab Insulin NPH Hum/Reg Insulin Hm 15 unit SQ BID #1 insuln.pen 11/08/18 11/23/18 Unknown Rx [Novolin 70-30 Flexpen] Linagliptin [Tradjenta] 5 mg PO QDAY #30 tablet 11/11/18 11/23/18 11/22/18 Rx 1 tab Magnesium Oxide [Mag-Ox] 400 mg PO BID #60 tablet 11/11/18 11/14/18 11/22/18 Rx 1 tab Potassium Chloride [K-Dur] 20 meq PO QDAY 30 Days #30 tablet 11/11/18 11/23/18 11/22/18 Rx 1 tab Rifaximin [Xifaxan] 550 mg PO BID tablet 11/11/18 11/23/18 11/22/18 Rx 1 tab oxyCODONE /ACETAMINOPHEN [Percocet 1 tab PO Q6H PRN #15 tablet 11/11/18 11/23/18 Unknown Rx 5/325 mg] - Physical exam General appearance: no acute distress Gastrointestinal: normoactive bowel sounds, distended - Brief post op/procedure progress note Date of procedure: 11/23/18 Pre-op diagnosis: ascites Post-op diagnosis: same Procedure: US paracentesis Anesthesia: local Findings: moderate to large ascites Surgeon: KAYE BROWN Estimated blood loss: none Pathology: none Specimen disposition: discarded Condition: stable - Hospital course Hospital course: uneventful - Disposition Condition at discharge: Good Disposition: DC-01 TO HOME OR SELFCARE Short Stay Discharge Plan Follow up with: ADITHYA FINE PA [Primary Care Provider] - 7 Days
--- NOTE | 2018-11-23 11:53 | Ultrasound Report ---
ULTRASOUND-GUIDED PARACENTESIS HISTORY: Ascities. PROCEDURE: The risks (including but not limited to bleeding, infection, and bowel injury) and benefi ts were explained to the patient and informed consent was obtained. A time out procedure was perform ed. Ultrasound was used to evaluate the abdomen and locate the largest ascites fluid pocket. Once the sk in was marked, the procedure site was prepped and draped in the usual sterile fashion and lidocaine w as used for local anesthesia. A skin antelmo was made and a 5-Urdu paracentesis catheter was placed. The patient was monitored closely throughout the procedure, and a total of 8900 mL of clear yellow f luid was aspirated. Labs were not ordered. The patient tolerated the procedure well with no complications. IMPRESSION: Successful ultrasound-guided paracentesis. Signer Name: Ash Pollock Jr, MD Signed: 11/23/2018 11:49 AM Workstation Name: [id number]
--- NOTE | 2018-11-23 15:30 | Ultrasound Report ---
DOPPLER ULTRASOUND PORTAL HEPATIC SHUNT/TIPS SHUNT HISTORY: Cirrhosis post TIPS implantation COMPARISON: None. TECHNIQUE: Multiple real-time ultrasonographic grayscale color and pulse color images were obtained of the TIPS shunt and lilia hepatis region. FINDINGS: Main portal vein: Patent with normal hepatopedal flow. TIPS shunt: Patent with slightly elevated velocity at the shunt origin from the main portal vein, karlos suring to 28 cm/s. Hepatic veins: Patent. IVC: Patent. Liver: Coarsened echotexture compatible with cirrhosis. Additional findings: None. IMPRESSION: 1. Patent TIPS. Velocities are mildly elevated at the junction of the shunt with the portal venous sy stem which could suggest some mild stenosis. Signer Name: Arsalan Meng MD Signed: 11/23/2018 3:26 PM Workstation Name: [id number]
[2018-11-23 15:50] VITALS: BP 138/65
== END 2018-11-23 07:14 | disposition home or self-care (01) ==
LOC: CATHLABREC 07:13 → EDSTATUS 07:30
PROVIDERS: ATTEND Internal Medicine Gastroenterology
DX: K70.31 Alcoholic cirrhosis of liver with ascites (principal); I12.9 Hypertensive chronic kidney disease with stage 1 through stage 4 chronic kidney disease, or unspecified chronic kidney disease; E11.22 Type 2 diabetes mellitus with diabetic chronic kidney disease; N18.9 Chronic kidney disease, unspecified; K21.9 Gastro-esophageal reflux disease without esophagitis; E11.01 Type 2 diabetes mellitus with hyperosmolarity with coma; E66.9 Obesity, unspecified; Z80.8 Family history of malignant neoplasm of other organs or systems; Z91.81 History of falling; Z79.899 Other long term (current) drug therapy; Z79.4 Long term (current) use of insulin; Z91.19 Patient's noncompliance with other medical treatment and regimen; Z98.890 Other specified postprocedural states; Z94.4 Liver transplant status; Z68.38 Body mass index [BMI] 38.0-38.9, adult; Z98.51 Tubal ligation status; Z86.2 Personal history of diseases of the blood and blood-forming organs and certain disorders involving the immune mechanism
CPT/HCPCS: 49083; 76705; 96365; P9047

== ENCOUNTER 2018-12-07 06:47 | Day surgery (SDC) | payer MEDICARE ==
[2018-12-07] MEDS ORDERED: XYLOCAINE 1% 20 mL ONE (08:28)
--- NOTE | 2018-12-07 09:49 | Short Stay Summary ---
Short Stay Documentation Date of service: 12/07/18 Narrative H&P: ascites - History Principal diagnosis: ascites Past Medical History: liver disease - Allergies and Medications Current Medications: Allergies No Known Allergies Allergy (Verified 01/26/18 09:53) Home Medications Medication Instructions Recorded Confirmed Last Taken Type Famotidine [Pepcid] 20 mg PO DAILY #30 tablet 03/14/18 12/07/18 12/06/18 Rx 1 tab Lactulose 30 ml PO BID 08/26/18 12/07/18 12/06/18 History 1 tab Lispro Insulin [HumaLOG] 9 units SQ AC 08/26/18 12/07/18 12/06/18 History 9 units Furosemide [Lasix TAB] 40 mg PO QDAY 10/19/18 12/07/18 12/06/18 History 1 tab Insulin NPH Hum/Reg Insulin Hm 15 unit SQ BID #1 insuln.pen 11/08/18 12/07/18 Unknown Rx [Novolin 70-30 Flexpen] Linagliptin [Tradjenta] 5 mg PO QDAY #30 tablet 11/11/18 12/07/18 11/22/18 Rx 1 tab Magnesium Oxide [Mag-Ox] 400 mg PO BID #60 tablet 11/11/18 12/07/18 12/06/18 Rx 1 tab Potassium Chloride [K-Dur] 20 meq PO QDAY 30 Days #30 tablet 11/11/18 12/07/18 12/06/18 Rx 1 tab Rifaximin [Xifaxan] 550 mg PO BID tablet 11/11/18 12/07/18 12/06/18 Rx 1 tab oxyCODONE /ACETAMINOPHEN [Percocet 1 tab PO Q6H PRN #15 tablet 11/11/18 12/07/18 Unknown Rx 5/325 mg] - Physical exam General appearance: no acute distress Gastrointestinal: distended - Brief post op/procedure progress note Date of procedure: 12/07/18 Pre-op diagnosis: ascites Post-op diagnosis: same Procedure: US paracentesis Anesthesia: local Findings: large ascites Surgeon: KAYE BROWN Estimated blood loss: none Pathology: none Specimen disposition: discarded Condition: stable - Hospital course Hospital course: uneventful - Disposition Condition at discharge: Good Disposition: DC-01 TO HOME OR SELFCARE Short Stay Discharge Plan Follow up with: JAI HIRSCH MD [Primary Care Provider] - 7 Days
[2018-12-07] MEDS ORDERED: ALBURX 25% (ALBUMIN) IV PRN (10:00)
--- NOTE | 2018-12-07 10:13 | Ultrasound Report ---
ULTRASOUND-GUIDED PARACENTESIS HISTORY: ascites; cirrhosis. PROCEDURE: The risks (including but not limited to bleeding, infection, and bowel injury) and benefi ts were explained to the patient and informed consent was obtained. A time out procedure was perform ed. Ultrasound was used to evaluate the abdomen and locate the largest ascites fluid pocket. Once the sk in was marked, the procedure site was prepped and draped in the usual sterile fashion and lidocaine w as used for local anesthesia. A skin antelmo was made and a 5 [place] centesis catheter was placed. The patient was monitored closely throughout the procedure, and a total of 9800 mL of clear yellow fluid was aspirated. No labs were ordered. The patient tolerated the procedure well with no complications. IMPRESSION: Successful ultrasound-guided paracentesis as described. Signer Name: Ash Pollock Jr, MD Signed: 12/07/2018 10:08 AM Workstation Name: [id number]
[2018-12-07 11:55] VITALS: BP 135/66
== END 2018-12-07 12:01 | disposition home or self-care (01) ==
LOC: CATHLABREC 06:47 → EDSTATUS 07:30 → CATHLABREC 12:01
PROVIDERS: ATTEND Internal Medicine Gastroenterology
DX: K70.31 Alcoholic cirrhosis of liver with ascites (principal); I12.9 Hypertensive chronic kidney disease with stage 1 through stage 4 chronic kidney disease, or unspecified chronic kidney disease; E11.22 Type 2 diabetes mellitus with diabetic chronic kidney disease; N18.9 Chronic kidney disease, unspecified; E11.01 Type 2 diabetes mellitus with hyperosmolarity with coma; D69.6 Thrombocytopenia, unspecified; K21.9 Gastro-esophageal reflux disease without esophagitis; E66.9 Obesity, unspecified; Z68.41 Body mass index [BMI] 40.0-44.9, adult; Z98.51 Tubal ligation status; Z80.8 Family history of malignant neoplasm of other organs or systems; Z79.899 Other long term (current) drug therapy; Z79.4 Long term (current) use of insulin; Z91.19 Patient's noncompliance with other medical treatment and regimen; Z98.890 Other specified postprocedural states; Z94.4 Liver transplant status
CPT/HCPCS: 49083; 96365; P9047

== ENCOUNTER 2018-12-28 07:44 | Day surgery (SDC) | payer MEDICARE ==
[2018-12-28] MEDS ORDERED: ALBURX 25% (ALBUMIN) IV PRN (11:22)
--- NOTE | 2018-12-28 11:22 | Short Stay Summary ---
Short Stay Documentation Date of service: 12/28/18 - History Principal diagnosis: ascites Past Medical History: liver disease, renal failure - Allergies and Medications Current Medications: Allergies No Known Allergies Allergy (Verified 01/26/18 09:53) Home Medications Medication Instructions Recorded Confirmed Last Taken Type Famotidine [Pepcid] 20 mg PO DAILY #30 tablet 03/14/18 12/28/18 12/27/18 Rx Lactulose 30 ml PO BID 08/26/18 12/28/18 12/27/18 History Lispro Insulin [HumaLOG] 9 units SQ AC 08/26/18 12/28/18 12/27/18 History Furosemide [Lasix TAB] 40 mg PO QDAY 10/19/18 12/28/18 12/27/18 History Insulin NPH Hum/Reg Insulin Hm 15 unit SQ BID #1 insuln.pen 11/08/18 12/28/18 Unknown Rx [Novolin 70-30 Flexpen] Linagliptin [Tradjenta] 5 mg PO QDAY #30 tablet 11/11/18 12/28/18 12/27/18 Rx Magnesium Oxide [Mag-Ox] 400 mg PO BID #60 tablet 11/11/18 12/28/18 12/27/18 Rx Potassium Chloride [K-Dur] 20 meq PO QDAY 30 Days #30 tablet 11/11/18 12/28/18 12/27/18 Rx Rifaximin [Xifaxan] 550 mg PO BID tablet 11/11/18 12/28/18 12/28/18 06:00 Rx oxyCODONE /ACETAMINOPHEN [Percocet 1 tab PO Q6H PRN #15 tablet 11/11/18 12/28/18 Unknown Rx 5/325 mg] - Physical exam General appearance: no acute distress Gastrointestinal: distended - Brief post op/procedure progress note Date of procedure: 12/28/18 Pre-op diagnosis: ascites Post-op diagnosis: same Procedure: ascites Anesthesia: local Findings: moderate ascites Surgeon: KAYE BROWN Estimated blood loss: none Pathology: none Specimen disposition: discarded Condition: stable - Hospital course Hospital course: uneventful - Disposition Condition at discharge: Good Disposition: DC-01 TO HOME OR SELFCARE Short Stay Discharge Plan Follow up with: JAI HIRSCH MD [Primary Care Provider] - 7 Days
--- NOTE | 2018-12-28 12:31 | Ultrasound Report ---
ULTRASOUND-GUIDED PARACENTESIS HISTORY: ascites. PROCEDURE: The risks (including but not limited to bleeding, infection, and bowel injury) and benefi ts were explained to the patient and informed consent was obtained. A time out procedure was perform ed. Ultrasound was used to evaluate the abdomen and locate the largest ascites fluid pocket. Once the sk in was marked, the procedure site was prepped and draped in the usual sterile fashion and lidocaine w as used for local anesthesia. A skin antelmo was made and a 5 Tajik centesis catheter was placed. The patient was monitored closely throughout the procedure, and a total of 8500 mL of cloudy yellow flui d was aspirated. No labs were ordered. The patient tolerated the procedure well with no complications. IMPRESSION: Successful ultrasound-guided paracentesis as described. Signer Name: Ash Pollock Jr, MD Signed: 12/28/2018 12:26 PM Workstation Name: [id number]
[2018-12-28 12:41] VITALS: BP 147/63
== END 2018-12-28 13:00 | disposition home or self-care (01) ==
LOC: CATHLABREC 07:44 → EDSTATUS 09:00 → CATHLABREC 13:00
PROVIDERS: ATTEND Internal Medicine Gastroenterology
DX: K70.31 Alcoholic cirrhosis of liver with ascites (principal); I12.9 Hypertensive chronic kidney disease with stage 1 through stage 4 chronic kidney disease, or unspecified chronic kidney disease; E11.22 Type 2 diabetes mellitus with diabetic chronic kidney disease; N18.9 Chronic kidney disease, unspecified; E11.01 Type 2 diabetes mellitus with hyperosmolarity with coma; D69.6 Thrombocytopenia, unspecified; K21.9 Gastro-esophageal reflux disease without esophagitis; E66.9 Obesity, unspecified; Z68.41 Body mass index [BMI] 40.0-44.9, adult; Z98.51 Tubal ligation status; Z79.899 Other long term (current) drug therapy; Z79.4 Long term (current) use of insulin; Z91.19 Patient's noncompliance with other medical treatment and regimen; Z80.8 Family history of malignant neoplasm of other organs or systems; Z91.81 History of falling; Z98.890 Other specified postprocedural states; Z94.4 Liver transplant status
CPT/HCPCS: 49083; 96365; P9047

== ENCOUNTER 2019-01-18 07:46 | Day surgery (SDC) | payer MEDICARE ==
--- NOTE | 2019-01-18 11:20 | Short Stay Summary ---
Short Stay Documentation Date of service: 01/18/19 - History Principal diagnosis: ascites Past Medical History: liver disease, renal failure - Allergies and Medications Current Medications: Allergies No Known Allergies Allergy (Verified 01/11/19 16:07) Home Medications Medication Instructions Recorded Confirmed Last Taken Type Famotidine [Pepcid] 20 mg PO DAILY #30 tablet 03/14/18 01/18/19 01/17/19 Rx Lactulose 30 ml PO BID 08/26/18 01/18/19 01/17/19 History Lispro Insulin [HumaLOG] 9 units SQ AC 08/26/18 01/18/19 01/17/19 History Furosemide [Lasix TAB] 40 mg PO QDAY 10/19/18 01/18/19 01/17/19 History Insulin NPH Hum/Reg Insulin Hm 15 unit SQ BID #1 insuln.pen 11/08/18 01/18/19 01/17/19 Rx [Novolin 70-30 Flexpen] Linagliptin [Tradjenta] 5 mg PO QDAY #30 tablet 11/11/18 01/18/19 01/17/19 Rx Magnesium Oxide [Mag-Ox] 400 mg PO BID #60 tablet 11/11/18 01/18/19 01/17/19 Rx Potassium Chloride [K-Dur] 20 meq PO QDAY 30 Days #30 tablet 11/11/18 01/18/19 01/17/19 Rx Rifaximin [Xifaxan] 550 mg PO BID tablet 11/11/18 01/18/19 01/17/19 Rx oxyCODONE /ACETAMINOPHEN [Percocet 1 tab PO Q6H PRN #15 tablet 11/11/18 01/18/19 01/17/19 Rx 5/325 mg] - Physical exam General appearance: no acute distress Gastrointestinal: distended Extremities: abnormal (edema) - Brief post op/procedure progress note Date of procedure: 01/18/19 Pre-op diagnosis: ascites Post-op diagnosis: same Procedure: US paracentesis Anesthesia: local Findings: moderate to large ascites Surgeon: KAYE BROWN Estimated blood loss: none Pathology: none Specimen disposition: discarded Condition: stable - Hospital course Hospital course: uneventful - Disposition Condition at discharge: Good Disposition: DC-01 TO HOME OR SELFCARE Short Stay Discharge Plan Follow up with: JAI HIRSCH MD [Primary Care Provider] - 7 Days
[2019-01-18 13:27] VITALS: BP 149/65
--- NOTE | 2019-01-18 14:51 | Ultrasound Report ---
ULTRASOUND-GUIDED PARACENTESIS HISTORY: Ascites. PROCEDURE: The risks (including but not limited to bleeding, infection, and bowel injury) and benefi ts were explained to the patient and informed consent was obtained. A time out procedure was perform ed. Ultrasound was used to evaluate the abdomen and locate the largest ascites fluid pocket. Once the sk in was marked, the procedure site was prepped and draped in the usual sterile fashion and lidocaine w as used for local anesthesia. A skin antelmo was made and a 5 [place] centesis catheter was placed. The patient was monitored closely throughout the procedure, and a total of 9800 mL of yellow cloudy flui d was aspirated. No labs were ordered. No albumin was administered after the paracentesis per the pa tient's request. The patient also discussed this with her dye maker who agreed to hold album in administration due to excessive leg edema. The patient tolerated the procedure well with no complications. IMPRESSION: Successful ultrasound-guided paracentesis as described. Signer Name: Ash Pollock Jr, MD Signed: 01/18/2019 2:46 PM Workstation Name: [id number]
== END 2019-01-18 13:15 | disposition home or self-care (01) ==
LOC: CATHLABREC 07:46 → EDSTATUS 09:00 → CATHLABREC 13:15
PROVIDERS: ATTEND Internal Medicine Gastroenterology
DX: R18.8 Other ascites (principal); K74.60 Unspecified cirrhosis of liver; E11.01 Type 2 diabetes mellitus with hyperosmolarity with coma; E11.00 Type 2 diabetes mellitus with hyperosmolarity without nonketotic hyperglycemic-hyperosmolar coma (NKHHC); E11.22 Type 2 diabetes mellitus with diabetic chronic kidney disease; N18.9 Chronic kidney disease, unspecified; K21.9 Gastro-esophageal reflux disease without esophagitis; E66.9 Obesity, unspecified; Z98.890 Other specified postprocedural states; Z79.899 Other long term (current) drug therapy; Z91.19 Patient's noncompliance with other medical treatment and regimen; Z68.41 Body mass index [BMI] 40.0-44.9, adult
CPT/HCPCS: 49083; C1729

== ENCOUNTER 2019-01-25 07:42 | Day surgery (SDC) | payer MEDICARE ==
[2019-01-25 10:59] VITALS: BP 131/58
--- NOTE | 2019-01-25 11:15 | Short Stay Summary ---
Short Stay Documentation Date of service: 01/25/19 - History Principal diagnosis: ascites Past Medical History: liver disease - Allergies and Medications Current Medications: Allergies No Known Allergies Allergy (Verified 01/11/19 16:07) Home Medications Medication Instructions Recorded Confirmed Last Taken Type Famotidine [Pepcid] 20 mg PO DAILY #30 tablet 03/14/18 01/25/19 01/24/19 Rx 20 mg Lactulose 30 ml PO BID 08/26/18 01/25/19 01/24/19 History 30 ml Lispro Insulin [HumaLOG] 9 units SQ AC 08/26/18 01/25/19 01/24/19 History 9 units Furosemide [Lasix TAB] 40 mg PO QDAY 10/19/18 01/25/19 01/24/19 History 40 mg Insulin NPH Hum/Reg Insulin Hm 15 unit SQ BID #1 insuln.pen 11/08/18 01/25/19 01/24/19 Rx [Novolin 70-30 Flexpen] 15 units Linagliptin [Tradjenta] 5 mg PO QDAY #30 tablet 11/11/18 01/25/19 01/24/19 Rx 5 mg Potassium Chloride [K-Dur] 20 meq PO QDAY 30 Days #30 tablet 11/11/18 01/25/19 01/24/19 Rx 20 meq Rifaximin [Xifaxan] 550 mg PO BID tablet 11/11/18 01/25/19 01/24/19 Rx 550 MG Januvia 50 mg PO DAILY 01/25/19 01/25/19 01/24/19 History 50 mg - Physical exam General appearance: no acute distress Gastrointestinal: distended Extremities: abnormal (pitting edema) - Brief post op/procedure progress note Date of procedure: 01/25/19 Pre-op diagnosis: US paracentesis Post-op diagnosis: same Procedure: US paracentesis Anesthesia: local Findings: large asictes Surgeon: KAYE BROWN Estimated blood loss: none Pathology: none Specimen disposition: discarded Condition: stable - Hospital course Hospital course: uneventful - Disposition Condition at discharge: Good Disposition: DC-01 TO HOME OR SELFCARE Short Stay Discharge Plan Follow up with: JAI HIRSCH MD [Primary Care Provider] - 7 Days
--- NOTE | 2019-01-25 11:21 | Ultrasound Report ---
ULTRASOUND-GUIDED PARACENTESIS HISTORY: ascites. PROCEDURE: The risks (including but not limited to bleeding, infection, and bowel injury) and benefi ts were explained to the patient and informed consent was obtained. A time out procedure was perform ed. Ultrasound was used to evaluate the abdomen and locate the largest ascites fluid pocket. Once the sk in was marked, the procedure site was prepped and draped in the usual sterile fashion and lidocaine w as used for local anesthesia. A skin antelmo was made and a 5 [place]alese centesis catheter was placed. The patient was monitored closely throughout the procedure, and a total of 7700 mL of yellow cloudy flui d was aspirated. No labs were ordered. The patient requested no IV albumin administration after para centesis. The patient tolerated the procedure well with no complications. IMPRESSION: Successful ultrasound-guided paracentesis as described. Signer Name: Ash Pollock Jr, MD Signed: 01/25/2019 11:16 AM Workstation Name: [id number]
== END 2019-01-25 11:30 | disposition home or self-care (01) ==
LOC: CATHLABREC 07:42 → EDSTATUS 09:00 → CATHLABREC 11:30
PROVIDERS: ATTEND Internal Medicine Gastroenterology
DX: K70.31 Alcoholic cirrhosis of liver with ascites (principal); I12.9 Hypertensive chronic kidney disease with stage 1 through stage 4 chronic kidney disease, or unspecified chronic kidney disease; E11.22 Type 2 diabetes mellitus with diabetic chronic kidney disease; N18.9 Chronic kidney disease, unspecified; E11.01 Type 2 diabetes mellitus with hyperosmolarity with coma; D69.6 Thrombocytopenia, unspecified; K21.9 Gastro-esophageal reflux disease without esophagitis; E66.9 Obesity, unspecified; Z68.41 Body mass index [BMI] 40.0-44.9, adult; Z79.899 Other long term (current) drug therapy; Z79.4 Long term (current) use of insulin; Z98.51 Tubal ligation status; Z80.8 Family history of malignant neoplasm of other organs or systems; Z98.890 Other specified postprocedural states; Z91.81 History of falling
CPT/HCPCS: 49083

== ENCOUNTER 2019-02-04 08:47 | Day surgery (SDC) | payer MEDICARE ==
[2019-02-04 09:45] LABS: INR 1.11 (0.87-1.13)
[2019-02-04 09:46] LABS: Partial Thromboplastin Time 31.9 Sec. (24.2-36.6)
--- NOTE | 2019-02-04 11:20 | Short Stay Summary ---
Short Stay Documentation Date of service: 02/04/19 Narrative H&P: ascites - History Principal diagnosis: ascites Past Medical History: liver disease - Allergies and Medications Current Medications: Allergies No Known Allergies Allergy (Verified 01/11/19 16:07) Home Medications Medication Instructions Recorded Confirmed Last Taken Type Famotidine [Pepcid] 20 mg PO DAILY #30 tablet 03/14/18 02/04/19 02/03/19 Rx 20 mg Lactulose 30 ml PO BID 08/26/18 02/04/19 02/03/19 History 30 ml Lispro Insulin [HumaLOG] 25 - 45 units SQ AC 08/26/18 02/04/19 02/03/19 History 45 units Furosemide [Lasix TAB] 40 mg PO QDAY 10/19/18 02/04/19 02/03/19 History 40 mg Insulin NPH Hum/Reg Insulin Hm 15 unit SQ BID #1 insuln.pen 11/08/18 02/04/19 02/03/19 Rx [Novolin 70-30 Flexpen] 45 units Linagliptin [Tradjenta] 5 mg PO QDAY #30 tablet 11/11/18 02/04/19 02/03/19 Rx 5 mg Potassium Chloride [K-Dur] 20 meq PO QDAY 30 Days #30 tablet 11/11/18 02/04/19 02/03/19 Rx 20 meq Rifaximin [Xifaxan] 550 mg PO BID tablet 11/11/18 02/04/19 02/03/19 Rx 550 mg Januvia 50 mg PO DAILY 01/25/19 02/04/19 02/03/19 History 50 mg - Physical exam General appearance: no acute distress Gastrointestinal: distended - Brief post op/procedure progress note Date of procedure: 02/04/19 Pre-op diagnosis: ascites Post-op diagnosis: same Procedure: US paracentesis Anesthesia: local Findings: moderate ascites Surgeon: KAYE BROWN Estimated blood loss: none Pathology: none Specimen disposition: discarded Condition: stable - Hospital course Hospital course: uneventful - Disposition Condition at discharge: Good Disposition: DC-01 TO HOME OR SELFCARE Short Stay Discharge Plan Follow up with: JAI HIRSCH MD [Primary Care Provider] - 7 Days
--- NOTE | 2019-02-04 13:21 | Ultrasound Report ---
ULTRASOUND-GUIDED PARACENTESIS HISTORY: ascites. PROCEDURE: The risks (including but not limited to bleeding, infection, and bowel injury) and benefi ts were explained to the patient and informed consent was obtained. A time out procedure was perform ed. Ultrasound was used to evaluate the abdomen and locate the largest ascites fluid pocket. Once the sk in was marked, the procedure site was prepped and draped in the usual sterile fashion and lidocaine w as used for local anesthesia. A skin antelmo was made and a 5 [place] centesis catheter was placed. The patient was monitored closely throughout the procedure, and a total of 8300 mL of cloudy yellow flui d was aspirated. No labs were ordered. The patient tolerated the procedure well with no complications. IMPRESSION: Successful ultrasound-guided paracentesis as described. Signer Name: Ash Pollock Jr, MD Signed: 02/04/2019 1:16 PM Workstation Name: [id number]
[2019-02-04 13:43] VITALS: BP 104/59
== END 2019-02-04 13:25 | disposition home or self-care (01) ==
LOC: CATHLABREC 08:47 → EDSTATUS 09:00 → CATHLABREC 13:25
PROVIDERS: ATTEND Internal Medicine Gastroenterology
DX: K70.31 Alcoholic cirrhosis of liver with ascites (principal); I12.9 Hypertensive chronic kidney disease with stage 1 through stage 4 chronic kidney disease, or unspecified chronic kidney disease; E11.22 Type 2 diabetes mellitus with diabetic chronic kidney disease; E11.01 Type 2 diabetes mellitus with hyperosmolarity with coma; D69.6 Thrombocytopenia, unspecified; K21.9 Gastro-esophageal reflux disease without esophagitis; E66.9 Obesity, unspecified; Z79.4 Long term (current) use of insulin; Z79.899 Other long term (current) drug therapy; Z91.19 Patient's noncompliance with other medical treatment and regimen; Z68.38 Body mass index [BMI] 38.0-38.9, adult; Z98.51 Tubal ligation status; Z80.8 Family history of malignant neoplasm of other organs or systems
CPT/HCPCS: 36415; 49083; 85610; 85730

== ENCOUNTER 2019-02-17 08:25 | Day surgery (SDC) | payer MEDICARE ==
[2019-02-17] MEDS ORDERED: ALBUMIN HUMAN 25% (25 GM/100 ML) INJ IV PRN (09:39)
--- NOTE | 2019-02-17 09:42 | Procedure Note ---
Date of procedure: 02/17/19 Pre-op diagnosis: Ascites Post-op diagnosis: same Procedure: Ultrasound-guided paracentesis Findings: See report in PACS. Anesthesia: local Surgeon: DEJA PAHM Estimated blood loss: none Pathology: none Specimen disposition: discarded Condition: stable Disposition: observation
[2019-02-17 10:34] VITALS: BP 122/52
--- NOTE | 2019-02-17 13:11 | Ultrasound Report ---
Ultrasound-guided paracentesis HISTORY: Ascites. Acute dyspnea PROCEDURE: The risks (including but not limited to bleeding, infection, and bowel injury) and benefi ts were explained to the patient and informed consent was obtained. A time out procedure was perform ed. Ultrasound was used to evaluate the abdomen and locate the largest ascites fluid pocket. Once the sk in was marked, the procedure site was prepped and draped in the usual sterile fashion and lidocaine w as used for local anesthesia. A skin antelmo was made and a 6-[place] Islander paracentesis catheter was placed. The patient was monitored closely throughout the procedure, and a total of 9000 mL of thin blood-tin ged fluid was aspirated. The patient tolerated the procedure well with no complications. IMPRESSION: Successful paracentesis as above with a total of 9000 mL of thin blood-tinged fluid aspir ated. Signer Name: Richard Crespo MD Signed: 02/17/2019 1:06 PM Workstation Name: [id number]
== END 2019-02-17 11:10 | disposition home or self-care (01) ==
LOC: CATHLABREC 08:25 → EDSTATUS 09:00 → CATHLABREC 11:10
PROVIDERS: ATTEND Internal Medicine Gastroenterology
DX: K70.31 Alcoholic cirrhosis of liver with ascites (principal); R06.09 Other forms of dyspnea; I12.9 Hypertensive chronic kidney disease with stage 1 through stage 4 chronic kidney disease, or unspecified chronic kidney disease; E11.22 Type 2 diabetes mellitus with diabetic chronic kidney disease; N18.9 Chronic kidney disease, unspecified; D69.6 Thrombocytopenia, unspecified; K21.9 Gastro-esophageal reflux disease without esophagitis; E66.9 Obesity, unspecified; Z91.19 Patient's noncompliance with other medical treatment and regimen; Z68.36 Body mass index [BMI] 36.0-36.9, adult; Z79.899 Other long term (current) drug therapy; Z94.4 Liver transplant status; Z79.4 Long term (current) use of insulin; Z98.51 Tubal ligation status; Z80.8 Family history of malignant neoplasm of other organs or systems; Z91.81 History of falling; Z98.890 Other specified postprocedural states
CPT/HCPCS: 49083

== ENCOUNTER 2019-02-25 08:40 | Day surgery (SDC) | payer MEDICARE ==
[2019-02-25 10:26] LABS: INR 1.17 (0.87-1.13)
[2019-02-25 10:27] LABS: Partial Thromboplastin Time 28.6 Sec. (24.2-36.6)
--- NOTE | 2019-02-25 12:05 | Short Stay Summary ---
Short Stay Documentation Date of service: 02/25/19 - History Principal diagnosis: ascites Past Medical History: liver disease, renal failure - Allergies and Medications Current Medications: Allergies No Known Allergies Allergy (Verified 01/11/19 16:07) Home Medications Medication Instructions Recorded Confirmed Last Taken Type Famotidine [Pepcid] 20 mg PO DAILY #30 tablet 03/14/18 02/25/19 02/24/19 Rx Lactulose 30 ml PO BID 08/26/18 02/25/19 02/24/19 History Lispro Insulin [HumaLOG] 25 - 45 units SQ AC 08/26/18 02/25/19 02/24/19 History Furosemide [Lasix TAB] 40 mg PO QDAY 10/19/18 02/25/19 02/24/19 History Insulin NPH Hum/Reg Insulin Hm 15 unit SQ BID #1 insuln.pen 11/08/18 02/25/19 02/16/19 Rx [Novolin 70-30 Flexpen] Linagliptin [Tradjenta] 5 mg PO QDAY #30 tablet 11/11/18 02/25/19 02/24/19 Rx Potassium Chloride [K-Dur] 20 meq PO QDAY 30 Days #30 tablet 11/11/18 02/25/19 02/24/19 Rx Rifaximin [Xifaxan] 550 mg PO BID tablet 11/11/18 02/25/19 02/24/19 Rx Januvia 50 mg PO DAILY 01/25/19 02/25/19 02/24/19 History - Physical exam General appearance: no acute distress Gastrointestinal: distended - Brief post op/procedure progress note Date of procedure: 02/25/19 Pre-op diagnosis: ascites Post-op diagnosis: same Procedure: US paracentesis Anesthesia: local Findings: moderate ascites Surgeon: KAYE BROWN Estimated blood loss: none Pathology: none Specimen disposition: discarded Condition: stable - Hospital course Hospital course: uneventful - Disposition Condition at discharge: Good Disposition: DC-01 TO HOME OR SELFCARE Short Stay Discharge Plan Follow up with: JAI HIRSCH MD [Primary Care Provider] - 7 Days
--- NOTE | 2019-02-25 12:13 | Ultrasound Report ---
ULTRASOUND-GUIDED PARACENTESIS HISTORY: ascites, cirrhosis. PROCEDURE: The risks (including but not limited to bleeding, infection, and bowel injury) and benefi ts were explained to the patient and informed consent was obtained. A time out procedure was perform ed. Ultrasound was used to evaluate the abdomen and locate the largest ascites fluid pocket. Once the sk in was marked, the procedure site was prepped and draped in the usual sterile fashion and lidocaine w as used for local anesthesia. A skin antelmo was made and a 5 Citizen [place] centesis catheter was placed. The patient was monitored closely throughout the procedure, and a total of 5.8 mL of cloudy pink fluid w as aspirated. No labs were ordered. The patient tolerated the procedure well with no complications. IMPRESSION: Successful ultrasound-guided paracentesis as described. Signer Name: Ash Pollock Jr, MD Signed: 02/25/2019 12:09 PM Workstation Name: [id number]
[2019-02-25 13:20] VITALS: BP 144/65
== END 2019-02-25 12:35 | disposition home or self-care (01) ==
LOC: CATHLABREC 08:40 → EDSTATUS 09:00 → CATHLABREC 12:35
PROVIDERS: ATTEND Internal Medicine Gastroenterology
DX: K70.31 Alcoholic cirrhosis of liver with ascites (principal); I12.9 Hypertensive chronic kidney disease with stage 1 through stage 4 chronic kidney disease, or unspecified chronic kidney disease; N18.9 Chronic kidney disease, unspecified; E11.22 Type 2 diabetes mellitus with diabetic chronic kidney disease; D69.6 Thrombocytopenia, unspecified; E11.01 Type 2 diabetes mellitus with hyperosmolarity with coma; K21.9 Gastro-esophageal reflux disease without esophagitis; E66.9 Obesity, unspecified; Z68.37 Body mass index [BMI] 37.0-37.9, adult; Z98.51 Tubal ligation status; Z80.8 Family history of malignant neoplasm of other organs or systems; Z79.4 Long term (current) use of insulin; Z79.899 Other long term (current) drug therapy; Z91.19 Patient's noncompliance with other medical treatment and regimen; Z94.4 Liver transplant status; Z91.81 History of falling; Z98.890 Other specified postprocedural states
CPT/HCPCS: 36415; 49083; 85610; 85730

== ENCOUNTER 2019-03-04 08:32 | Day surgery (SDC) | payer MEDICARE ==
--- NOTE | 2019-03-04 11:27 | Short Stay Summary ---
Short Stay Documentation Date of service: 03/04/19 - History Principal diagnosis: ascites Past Medical History: liver disease - Allergies and Medications Current Medications: Allergies No Known Allergies Allergy (Verified 01/11/19 16:07) Home Medications Medication Instructions Recorded Confirmed Last Taken Type Famotidine [Pepcid] 20 mg PO DAILY #30 tablet 03/14/18 03/04/19 03/03/19 Rx 20 mg Lactulose 30 ml PO BID 08/26/18 03/04/19 03/03/19 History 30 ml Furosemide [Lasix TAB] 40 mg PO QDAY 10/19/18 03/04/19 03/03/19 History 40 mg Linagliptin [Tradjenta] 5 mg PO QDAY #30 tablet 11/11/18 03/04/19 03/03/19 Rx 5 mg Potassium Chloride [K-Dur] 20 meq PO QDAY 30 Days #30 tablet 11/11/18 03/04/19 03/03/19 Rx 20 meq Rifaximin [Xifaxan] 550 mg PO BID tablet 11/11/18 03/04/19 03/03/19 Rx 550 mg Januvia 50 mg PO DAILY 01/25/19 03/04/19 03/03/19 History 50 mg Insulin Aspart (Nf) [Novolog] 25 unit SQ AC 02/25/19 03/04/19 03/03/19 History 30 units - Physical exam General appearance: no acute distress - Brief post op/procedure progress note Date of procedure: 03/04/19 Pre-op diagnosis: ascites Post-op diagnosis: same Procedure: US paracentesis Anesthesia: local Findings: moderate ascites Telesales Supervisor: KAYE BROWN Estimated blood loss: none Pathology: none Specimen disposition: discarded Condition: stable - Hospital course Hospital course: uneventful - Disposition Condition at discharge: Good Disposition: DC-01 TO HOME OR SELFCARE Short Stay Discharge Plan Follow up with: JAI HIRSCH MD [Primary Care Provider] - 7 Days
[2019-03-04 12:21] VITALS: BP 135/57
--- NOTE | 2019-03-04 12:32 | Ultrasound Report ---
ULTRASOUND-GUIDED PARACENTESIS HISTORY: ascites. PROCEDURE: The risks (including but not limited to bleeding, infection, and bowel injury) and benefi ts were explained to the patient and informed consent was obtained. A time out procedure was perform ed. Ultrasound was used to evaluate the abdomen and locate the largest ascites fluid pocket. Once the sk in was marked, the procedure site was prepped and draped in the usual sterile fashion and lidocaine w as used for local anesthesia. A skin antelmo was made and a 5 Nigerian centesis catheter was placed. The patient was monitored closely throughout the procedure, and a total of 5200 mL of cloudy brown fluid was aspirated. No labs were ordered. The patient tolerated the procedure well with no complications. IMPRESSION: Successful ultrasound-guided paracentesis as described. Signer Name: Ash Pollock Jr, MD Signed: 03/04/2019 12:28 PM Workstation Name: [id number]
== END 2019-03-04 12:30 | disposition home or self-care (01) ==
LOC: CATHLABREC 08:32 → EDSTATUS 09:00 → CATHLABREC 12:30
PROVIDERS: ATTEND Internal Medicine Gastroenterology
DX: K70.31 Alcoholic cirrhosis of liver with ascites (principal); I12.9 Hypertensive chronic kidney disease with stage 1 through stage 4 chronic kidney disease, or unspecified chronic kidney disease; E11.22 Type 2 diabetes mellitus with diabetic chronic kidney disease; N18.9 Chronic kidney disease, unspecified; D69.6 Thrombocytopenia, unspecified; K21.9 Gastro-esophageal reflux disease without esophagitis; E66.9 Obesity, unspecified; Z68.35 Body mass index [BMI] 35.0-35.9, adult; Z98.51 Tubal ligation status; Z79.899 Other long term (current) drug therapy; Z79.4 Long term (current) use of insulin; Z91.19 Patient's noncompliance with other medical treatment and regimen; Z80.8 Family history of malignant neoplasm of other organs or systems; Z98.890 Other specified postprocedural states; Z91.81 History of falling
CPT/HCPCS: 49083

== ENCOUNTER 2019-03-09 15:07 | Emergency (ER) | payer MEDICARE ==
[2019-03-09 16:11] LABS: Hematocrit 21.7 % (30.3-42.9); Hemoglobin 7.7 gm/dl (10.1-14.3); Mean Corpuscular HGB Conc 35 % (30-34); Mean Corpuscular Volume 88 fl (79-97); Red Blood Count 2.47 M/mm3 (3.65-5.03)
[2019-03-09 16:16] LABS: Platelet Count 77 K/mm3 (140-440); Red Cell Distribution Width 20.2 % (13.2-15.2)
[2019-03-09 16:26] LABS: Albumin 2.1 g/dL (3.9-5); Calcium 8.5 mg/dL (8.4-10.2)
[2019-03-09] MEDS ORDERED: INSULIN REGULAR, HUMAN 100 UNITS/1 ML SUB-Q ONE (16:57)
--- NOTE | 2019-03-09 16:58 | Emergency Department Report ---
ED General Adult HPI - General Chief complaint: Hyperglycemia Stated complaint: HIGH GLUCOSE/REFER BY PCP Time Seen by Provider: 03/09/19 16:34 Source: patient, RN notes reviewed, old records reviewed Mode of arrival: Ambulatory Limitations: No Limitations - History of Present Illness Initial comments: This is a pleasant 68-year-old female. I have evaluated this patient in the past. Her primary care doctor is . her knuckler is Dr. Shea. Past medical history includes obesity, renal insufficiency, hepatic insufficiency, recurrent ascites, diabetes, frequent paracenteses She was at her outpatient knuckler's office for routine follow-up, when she was found to have incidental hyperglycemia. She is sent to the emergency room for evaluation of hyperglycemia. She denies physical pain at this time. She denies dietary indiscretions at this time. She endorses compliance with her medications. As per review of recent discharge summary, it appears that she takes Januvia, 50 grams by mouth daily, and insulin aspart, 25 units subcutaneous prior to meals. -: Sudden Improves with: none Worsens with: none Associated Symptoms: denies other symptoms - Related Data Home Medications Medication Instructions Recorded Confirmed Last Taken Lactulose 30 ml PO BID 08/26/18 03/04/19 03/03/19 30 ml Furosemide [Lasix TAB] 40 mg PO QDAY 10/19/18 03/04/19 03/03/19 40 mg Januvia 50 mg PO DAILY 01/25/19 03/04/19 03/03/19 50 mg Insulin Aspart (Nf) [Novolog] 25 unit SQ AC 02/25/19 03/04/19 03/03/19 30 units Previous Rx's Medication Instructions Recorded Last Taken Type Famotidine [Pepcid] 20 mg PO DAILY #30 tablet 03/14/18 03/03/19 Rx 20 mg Linagliptin [Tradjenta] 5 mg PO QDAY #30 tablet 11/11/18 03/03/19 Rx 5 mg Potassium Chloride [K-Dur] 20 meq PO QDAY 30 Days #30 tablet 11/11/18 03/03/19 Rx 20 meq Rifaximin [Xifaxan] 550 mg PO BID tablet 11/11/18 03/03/19 Rx 550 mg Allergies Allergy/AdvReac Type Severity Reaction Status Date / Time No Known Allergies Allergy Verified 01/11/19 16:07 ED Review of Systems ROS: Stated complaint: HIGH GLUCOSE/REFER BY PCP Other details as noted in HPI Constitutional: denies: fever Respiratory: denies: cough Cardiovascular: denies: chest pain Gastrointestinal: denies: abdominal pain, nausea, vomiting Genitourinary: denies: urgency Neurological: denies: weakness Hematological/Lymphatic: denies: easy bleeding ED Past Medical Hx - Past Medical History Previous Medical History?: Yes Hx Hypertension: Yes Hx Diabetes: Yes Hx Liver Disease: Yes Hx Renal Disease: Yes Hx Arthritis: No Hx HIV: No Additional medical history: TIPS PROCEDURE 02/2018 CHRISTOPHER, VALENT[facility] TAPS - Surgical History Past Surgical History?: Yes Additional Surgical History: left shoulder surgery, TUBILIGATION - Social History Smoking Status: Never Smoker Substance Use Type: None - Medications Home Medications: Home Medications Medication Instructions Recorded Confirmed Last Taken Type Famotidine [Pepcid] 20 mg PO DAILY #30 tablet 03/14/18 03/04/19 03/03/19 Rx 20 mg Lactulose 30 ml PO BID 08/26/18 03/04/19 03/03/19 History 30 ml Furosemide [Lasix TAB] 40 mg PO QDAY 10/19/18 03/04/19 03/03/19 History 40 mg Linagliptin [Tradjenta] 5 mg PO QDAY #30 tablet 11/11/18 03/04/19 03/03/19 Rx 5 mg Potassium Chloride [K-Dur] 20 meq PO QDAY 30 Days #30 tablet 11/11/18 03/04/19 03/03/19 Rx 20 meq Rifaximin [Xifaxan] 550 mg PO BID tablet 11/11/18 03/04/19 03/03/19 Rx 550 mg Januvia 50 mg PO DAILY 01/25/19 03/04/19 03/03/19 History 50 mg Insulin Aspart (Nf) [Novolog] 25 unit SQ AC 02/25/19 03/04/19 03/03/19 History 30 units ED Physical Exam - General Limitations: No Limitations General appearance: alert, in no apparent distress - Head Head exam: Present: atraumatic, normocephalic - Eye Eye exam: Present: normal appearance, EOMI. Absent: nystagmus - ENT ENT exam: Present: normal exam, normal orophraynx, mucous membranes moist, normal external ear exam - Neck Neck exam: Present: normal inspection, full ROM. Absent: tenderness, meningismus - Respiratory Respiratory exam: Present: normal lung sounds bilaterally. Absent: respiratory distress - Cardiovascular Cardiovascular Exam: Present: regular rate, normal rhythm, normal heart sounds. Absent: bradycardia, tachycardia, irregular rhythm, systolic murmur, diastolic murmur, rubs, gallop - GI/Abdominal GI/Abdominal exam: Present: soft, tenderness. Absent: distended, guarding, rebound, rigid, normal bowel sounds, pulsatile mass - Extremities Exam Extremities exam: Present: normal inspection, full ROM, pedal edema, other (2+ pulses noted in the bilateral upper, lower extremities. There is no long bone tenderness. Musculoskeletal compartments are soft. The pelvis is stable.). Absent: calf tenderness - Back Exam Back exam: Present: normal inspection, full ROM. Absent: tenderness, CVA tenderness (R), CVA tenderness (L), paraspinal tenderness, vertebral tenderness - Neurological Exam Neurological exam: Present: alert, oriented X3, normal gait, other (there is no facial droop. The tongue is midline. Extraocular movements are intact bilaterally. Patient speaking in full complete sentences. Shoulder shrug is intact bilaterally. Hearing is grossly intact bilaterally. Visual acuity intact to finger counting and color perception at a close distance. 5/5 strength 4 extremities. Sensation intact to light touch in 4 extremities.). Absent: motor sensory deficit - Psychiatric Psychiatric exam: Present: anxious - Skin Skin exam: Present: warm, dry, intact, normal color. Absent: rash ED Course Vital Signs 03/09/19 03/09/19 03/09/19 15:35 17:18 17:19 Temperature 97.4 F L 97.8 F Pulse Rate 85 79 Respiratory 18 13 Rate Blood Pressure 146/67 Blood Pressure 139/52 [Left] O2 Sat by Pulse 100 100 100 Oximetry 03/09/19 19:56 Temperature Pulse Rate Respiratory 18 Rate Blood Pressure Blood Pressure [Left] O2 Sat by Pulse Oximetry - Reevaluation(s) Reevaluation #1: 03/09/19 18:51 Differential diagnosis, including but not limited to: Diabetic related hyperglycemia, diabetic ketoacidosis, hyperosmolar state Assessment and plan: 68-year-old female with multiple chronic issues, sent to the ER for painless and asymptomatic hyperglycemia. This is similar to a prior presentation in which I evaluated this patient in October of this year. Laboratory studies show chronic renal insufficiency, and chronic evidence of hepatic insufficiency. She does not have anion gap acidosis that would require initiation of insulin therapy/drip. However, we will give her some insulin given that she is fairly hyperglycemic. She can follow-up with her outpatient primary care doctor once her hypoglycemia has resolved. She is currently afebrile with reassuring vital signs and no acute distress, appears quite comfortable. She is accompanied by her significant other at this time. Reevaluation #2: 03/09/19 19:23 Accu-Chek improving. Now complaining of muscle cramps. She reports that her knuckler cleared her to receive Tylenol. Tylenol ordered. Reevaluation #3: 03/09/19 20:31 Accu-Chek is improved. Patient continues to complain of chronic musculoskeletal pain. She was able to walk with a steady gait and her extremity exam was unremarkable. She can follow-up with her outpatient primary care doctor and her knuckler. ED Medical Decision Making - Lab Data Result diagrams: 03/09/19 15:47 03/09/19 15:47 Vital Signs 03/09/19 03/09/19 03/09/19 15:35 17:18 17:19 Temperature 97.4 F L 97.8 F Pulse Rate 85 79 Respiratory 18 13 Rate Blood Pressure 146/67 Blood Pressure 139/52 [Left] O2 Sat by Pulse 100 100 100 Oximetry Lab Results 03/09/19 03/09/19 03/09/19 Range/Units 15:27 15:47 15:47 WBC 4.4 L (4.5-11.0) K/mm3 RBC 2.47 L (3.65-5.03) M/mm3 Hgb 7.7 L (10.1-14.3) gm/dl Hct 21.7 L (30.3-42.9) % MCV 88 (79-97) fl MCH 31 (28-32) pg MCHC 35 H (30-34) % RDW 20.2 H (13.2-15.2) % Plt Count 77 L (140-440) K/mm3 VBG pH (7.320-7.420) Sodium 131 L (137-145) mmol/L Potassium 3.5 L (3.6-5.0) mmol/L Chloride 95.1 L (98-107) mmol/L Carbon Dioxide 21 L (22-30) mmol/L Anion Gap 18 mmol/L BUN 33 H (7-17) mg/dL Creatinine 2.1 H (0.7-1.2) mg/dL Estimated GFR 23 ml/min BUN/Creatinine Ratio 16 % Glucose 586 H* (65-100) mg/dL POC Glucose > 500 H (70-105) Calcium 8.5 (8.4-10.2) mg/dL Total Bilirubin 1.30 H (0.1-1.2) mg/dL AST 38 (5-40) units/L ALT 28 (7-56) units/L Alkaline Phosphatase 142 H (35-129) units/L Total Protein 5.8 L (6.3-8.2) g/dL Albumin 2.1 L (3.9-5) g/dL Albumin/Globulin Ratio 0.6 % 03/09/19 03/09/19 Range/Units 15:47 18:31 WBC (4.5-11.0) K/mm3 RBC (3.65-5.03) M/mm3 Hgb (10.1-14.3) gm/dl Hct (30.3-42.9) % MCV (79-97) fl MCH (28-32) pg MCHC (30-34) % RDW (13.2-15.2) % Plt Count (140-440) K/mm3 VBG pH 7.355 (7.320-7.420) Sodium (137-145) mmol/L Potassium (3.6-5.0) mmol/L Chloride (98-107) mmol/L Carbon Dioxide (22-30) mmol/L Anion Gap mmol/L BUN (7-17) mg/dL Creatinine (0.7-1.2) mg/dL Estimated GFR ml/min BUN/Creatinine Ratio % Glucose (65-100) mg/dL POC Glucose 376 H (70-105) Calcium (8.4-10.2) mg/dL Total Bilirubin (0.1-1.2) mg/dL AST (5-40) units/L ALT (7-56) units/L Alkaline Phosphatase (35-129) units/L Total Protein (6.3-8.2) g/dL Albumin (3.9-5) g/dL Albumin/Globulin Ratio % Critical care attestation.: If time is entered above; I have spent that time in minutes in the direct care of this critically ill patient, excluding procedure time. ED Disposition Clinical Impression: Renal insufficiency, Cirrhosis of liver, Hyperglycemia Disposition: DC- TO HOME OR SELFCARE Is pt being admited?: No Does the pt Need Aspirin: No Condition: Stable Additional Instructions: Continue outpatient medications. Follow-up with your primary care doctor or knuckler within the next 2 weeks. Return to emergency room right away with new, worsened, different symptoms, or symptoms not present on the initial emergency room evaluation. Please make certain to adhere to a diabetic appropriate diet, as recommended by the [place] [employer], which can be checked out/referenced online. Referrals: PRIMARY MD NETTE [Primary Care Provider] - 3-5 Days VASQUEZ SHEA MD [Staff Physician] - 3-5 Days TAYE AGUILAR MD [Staff Physician] - 3-5 Days
[2019-03-09] MEDS ORDERED: INSULIN REGULAR, HUMAN 100 UNITS/1 ML IV ONE (19:10)
[2019-03-09] MEDS ORDERED: ACETAMINOPHEN 325 MG TAB PO ONE (19:23)
[2019-03-09] MEDS ORDERED: oxyCODONE /ACETAMINOPHEN 5-325MG TAB PO ONE (20:30)
[2019-03-09 22:17] VITALS: BP 115/60
== END 2019-03-09 21:25 | disposition home or self-care (01) ==
LOC: ED 15:07
DX: N28.9 Disorder of kidney and ureter, unspecified (principal); K74.60 Unspecified cirrhosis of liver; I10 Essential (primary) hypertension; E11.65 Type 2 diabetes mellitus with hyperglycemia; K76.9 Liver disease, unspecified; Z98.51 Tubal ligation status; Z79.899 Other long term (current) drug therapy
CPT/HCPCS: 36415; 80053; 82805; 82962; 85027; 96372; 96374; J1815

== ENCOUNTER 2019-03-11 09:47 | Emergency (ER) | payer MEDICARE ==
[2019-03-11 10:52] LABS: Hematocrit 22.5 % (30.3-42.9); Mean Corpuscular HGB Conc 36 % (30-34); Mean Corpuscular Volume 85 fl (79-97); Platelet Count 98 K/mm3 (140-440); Red Blood Count 2.63 M/mm3 (3.65-5.03); Red Cell Distribution Width 20.3 % (13.2-15.2)
[2019-03-11 10:54] LABS: Albumin 2.4 g/dL (3.9-5); Calcium 8.7 mg/dL (8.4-10.2)
[2019-03-11 11:47] LABS: Eosinophils % (Manual) 0 % (0.0-4.3); Total Cells Counted 100
[2019-03-11 11:48] LABS: Anisocytosis 1+; Macrocytosis Few; Ovalocytes Few; Platelet Estimate Consistent w Auto
[2019-03-11 14:42] LABS: Bacteria,Urine 2+ /HPF (Negative); Bilirubin,Urine NEG (Negative); Blood,Urine MOD (Negative); Color,Urine Amber (Yellow); Protein,Urine <15 mg/dL mg/dL (Negative)
[2019-03-11 14:44] LABS: WBC,Urine > 182.0 /HPF (0.0-6.0)
[2019-03-11] MEDS ORDERED: ONDANSETRON 4 MG/2 ML INJ IV STA (18:36)
[2019-03-11] MEDS ORDERED: METOCLOPRAMIDE 10 MG/2 ML INJ IV STA (18:36)
[2019-03-11] MEDS ORDERED: diphenhydrAMINE 50 MG/ML VIAL IV STA (18:36)
[2019-03-11] MEDS ORDERED: fentaNYL 100 MCG/2 ML INJ IV ONE (18:37)
[2019-03-11 21:20] VITALS: BP 142/61
== END 2019-03-11 21:20 | disposition home or self-care (01) ==
LOC: ED 09:47
DX: R11.10 Vomiting, unspecified (principal); Z53.21 Procedure and treatment not carried out due to patient leaving prior to being seen by health care provider
CPT/HCPCS: 36415; 80053; 81001; 83690; 85007; 85025; J1200; J2405; J2765; J3010

== ENCOUNTER 2019-03-14 07:11 | Inpatient (IN) | payer MEDICARE ==
[2019-03-14] MEDS ORDERED: SODIUM CHLORIDE 0.9% 1000 ML 1,000 ML IV ONE (08:21)
[2019-03-14 08:54] LABS: Basophils # (Auto) 0.1 K/mm3 (0.0-0.1); Basophils % (Auto) 2.1 % (0.0-1.8); Eosinophils # (Auto) 0.1 K/mm3 (0.0-0.4); Eosinophils % (Auto) 3.7 % (0.0-4.3); Hematocrit 21.8 % (30.3-42.9); Hemoglobin 7.4 gm/dl (10.1-14.3); Lymphocytes # (Auto) 0.7 K/mm3 (1.2-5.4); Lymphocytes % (Auto) 21.9 % (13.4-35.0); Mean Corpuscular HGB Conc 34 % (30-34); Mean Corpuscular Volume 87 fl (79-97); Monocytes # (Auto) 0.5 K/mm3 (0.0-0.8); Monocytes % (Auto) 15.5 % (0.0-7.3); Red Blood Count 2.52 M/mm3 (3.65-5.03)
--- NOTE | 2019-03-14 09:03 | XRay Report ---
CHEST 1 VIEW INDICATION / CLINICAL INFORMATION: hypertension. COMPARISON: 11/14/2018 FINDINGS: SUPPORT DEVICES: None. HEART / MEDIASTINUM: No significant abnormality. LUNGS / PLEURA: No significant pulmonary or pleural abnormality.. No pneumothorax. ADDITIONAL FINDINGS: No significant additional findings. IMPRESSION: 1. No acute findings. Signer Name: Malcolm Winchester MD Signed: 03/14/2019 8:59 AM Workstation Name: [id number]
[2019-03-14 09:11] LABS: Albumin 2.2 g/dL (3.9-5); Bilirubin,Direct 0.7 mg/dL (0-0.2); Calcium 8.3 mg/dL (8.4-10.2)
[2019-03-14 09:11] LABS: Creatine Kinase MB 3.9 ng/mL (0.0-4.0)
[2019-03-14 09:15] LABS: Platelet Count 79 K/mm3 (140-440)
[2019-03-14 09:20] LABS: INR 1.17 (0.87-1.13)
[2019-03-14 09:21] LABS: Partial Thromboplastin Time 28.8 Sec. (24.2-36.6)
[2019-03-14 09:32] LABS: Chol/HDL Ratio 2.33 %
[2019-03-14] MEDS ORDERED: cefTRIAXone/NS 1 GM/50 ML 1 GM/50 ML BAG IV ONE ×2 (10:22→11:21)
--- NOTE | 2019-03-14 10:32 | Emergency Department Report ---
ED General Adult HPI - General Chief complaint: Hyperglycemia Stated complaint: WEAK/FREQUENT URINATION Time Seen by Provider: 03/14/19 07:50 Source: patient, family Mode of arrival: Wheelchair Limitations: Other - History of Present Illness Initial comments: This is a 68-year-old female with end-stage liver disease and requiring recurrent paracentesis. She has appointment for paracentesis today. She was diagnosed with urinary tract infection a few days ago but was not compliant with her prescription until yesterday. A urine culture was not ordered at this facility but the urinalysis was grossly positive. The patient herself complains of generalized weakness but states "I feel okay". She denies fever or chills. She denies any abdominal pain, nausea, vomiting, signs of GI bleeding, fever or chills. She is not currently complaining of shortness of breath. She states that she has a nonproductive cough which is somewhat chronic. She is taking lactulose. She knows nothing about her ammonia levels. She is here with and son. They state that she has an insulin pump and that her sugars have been running high. In addition she has been transfused over the past 2 weeks times what sounds to be one unit. She was seen in the emergency department last week and was found to be quite every glycemic but not acidotic. She was treated as an outpatient. -: Gradual, days(s) Severity scale (0 -10): 0 Consistency: constant (weakness. Really didn't have any pain complaints.) Associated Symptoms: weakness Treatments Prior to Arrival: other (antibiotic as above described) - Related Data Home Medications Medication Instructions Recorded Confirmed Last Taken Lactulose 30 ml PO BID 08/26/18 03/04/19 03/03/19 30 ml Furosemide [Lasix TAB] 40 mg PO QDAY 10/19/18 03/04/19 03/03/19 40 mg Januvia 50 mg PO DAILY 01/25/19 03/04/19 03/03/19 50 mg Insulin Aspart (Nf) [Novolog] 25 unit SQ AC 02/25/19 03/04/19 03/03/19 30 units Previous Rx's Medication Instructions Recorded Last Taken Type Famotidine [Pepcid] 20 mg PO DAILY #30 tablet 03/14/18 03/03/19 Rx 20 mg Linagliptin [Tradjenta] 5 mg PO QDAY #30 tablet 11/11/18 03/03/19 Rx 5 mg Potassium Chloride [K-Dur] 20 meq PO QDAY 30 Days #30 tablet 11/11/18 03/03/19 Rx 20 meq Rifaximin [Xifaxan] 550 mg PO BID tablet 11/11/18 03/03/19 Rx 550 mg Nitrofurantoin [place]/M-Cryst 100 mg PO Q12HR #20 capsule 03/11/19 Unknown Rx [Macrobid CAP] Allergies Allergy/AdvReac Type Severity Reaction Status Date / Time No Known Allergies Allergy Verified 03/14/19 07:12 ED Review of Systems ROS: Stated complaint: WEAK/FREQUENT URINATION Other details as noted in HPI Constitutional: weakness. denies: chills, fever Eyes: denies: eye pain, eye discharge, vision change ENT: denies: ear pain, throat pain Respiratory: denies: cough, shortness of breath, wheezing Cardiovascular: denies: chest pain, palpitations Endocrine: no symptoms reported Gastrointestinal: denies: abdominal pain, nausea, diarrhea Genitourinary: denies: urgency, dysuria, discharge Musculoskeletal: denies: back pain, joint swelling, arthralgia Skin: denies: rash, lesions Neurological: denies: headache, weakness, paresthesias Psychiatric: denies: anxiety, depression Hematological/Lymphatic: denies: easy bleeding, easy bruising ED Past Medical Hx - Past Medical History Hx Hypertension: Yes Hx Diabetes: Yes Hx Liver Disease: Yes Hx Renal Disease: Yes Hx Arthritis: No Hx HIV: No Additional medical history: TIPS PROCEDURE 02/2018 [facility] WHITE TAPS - Surgical History Additional Surgical History: left shoulder surgery, TUBILIGATION - Social History Smoking Status: Never Smoker Substance Use Type: None - Medications Home Medications: Home Medications Medication Instructions Recorded Confirmed Last Taken Type Famotidine [Pepcid] 20 mg PO DAILY #30 tablet 03/14/18 03/04/19 03/03/19 Rx 20 mg Lactulose 30 ml PO BID 08/26/18 03/04/19 03/03/19 History 30 ml Furosemide [Lasix TAB] 40 mg PO QDAY 10/19/18 03/04/19 03/03/19 History 40 mg Linagliptin [Tradjenta] 5 mg PO QDAY #30 tablet 11/11/18 03/04/19 03/03/19 Rx 5 mg Potassium Chloride [K-Dur] 20 meq PO QDAY 30 Days #30 tablet 11/11/18 03/04/19 03/03/19 Rx 20 meq Rifaximin [Xifaxan] 550 mg PO BID tablet 11/11/18 03/04/19 03/03/19 Rx 550 mg Januvia 50 mg PO DAILY 01/25/19 03/04/19 03/03/19 History 50 mg Insulin Aspart (Nf) [Novolog] 25 unit SQ AC 02/25/19 03/04/19 03/03/19 History 30 units Nitrofurantoin [place]/M-Cryst 100 mg PO Q12HR #20 capsule 03/11/19 Unknown Rx [Macrobid CAP] ED Physical Exam - General Limitations: Other General appearance: alert, in no apparent distress - Head Head exam: Present: atraumatic, normocephalic - Eye Eye exam: Present: normal appearance. Absent: conjunctival injection (conjunctiva pallor) - ENT ENT exam: Present: mucous membranes moist - Neck Neck exam: Present: normal inspection. Absent: tenderness, meningismus - Respiratory Respiratory exam: Present: normal lung sounds bilaterally. Absent: respiratory distress - Cardiovascular Cardiovascular Exam: Present: regular rate, normal rhythm. Absent: systolic murmur, diastolic murmur, rubs, gallop - GI/Abdominal GI/Abdominal exam: Present: soft, normal bowel sounds, other (moderate ascites nontender's). Absent: tenderness, guarding, rebound, rigid - Extremities Exam Extremities exam: Present: pedal edema, other (leg edema) - Back Exam Back exam: Present: normal inspection - Neurological Exam Neurological exam: Present: alert, oriented X3, CN II-XII intact. Absent: motor sensory deficit - Psychiatric Psychiatric exam: Present: normal affect, normal mood - Skin Skin exam: Present: warm, dry, intact, normal color. Absent: rash ED Course Vital Signs 03/14/19 03/14/19 03/14/19 07:15 07:54 07:56 Temperature 97.7 F 97.9 F Pulse Rate 85 84 Respiratory 18 10 L 12 Rate Blood Pressure 138/54 Blood Pressure 143/85 [Left] O2 Sat by Pulse 100 97 97 Oximetry 03/14/19 08:15 Temperature Pulse Rate 80 Respiratory 12 Rate Blood Pressure Blood Pressure 136/56 [Left] O2 Sat by Pulse 100 Oximetry - Reevaluation(s) Reevaluation #1: Patient was found to have an ammonia level CXVII, her sugar was fine. She was not acidotic. She has a very low hemoglobin. She will be admitted for medical management transfusion and paracentesis with stable. I have given her ceftriaxone to cover her recent urinary tract infection and ordered blood and urine cultures. 03/14/19 10:37 ED Medical Decision Making - Lab Data Result diagrams: 03/14/19 07:58 03/14/19 07:58 Laboratory Results - last 24 hr 03/14/19 03/14/19 03/14/19 07:28 07:58 07:58 WBC 3.3 L RBC 2.52 L Hgb 7.4 L Hct 21.8 L MCV 87 MCH 30 MCHC 34 RDW 20.0 H Plt Count 79 L Lymph % (Auto) 21.9 [place] % (Auto) 15.5 H Eos % (Auto) 3.7 Baso % (Auto) 2.1 H Lymph # 0.7 L [place] # 0.5 Eos # 0.1 Baso # 0.1 Seg Neutrophils % 56.8 Seg Neutrophils # 1.8 PT INR APTT VBG pH Sodium 142 D Potassium 3.6 Chloride 103.6 Carbon Dioxide 23 Anion Gap 19 BUN 39 H Creatinine 2.1 H Estimated GFR 23 BUN/Creatinine Ratio 19 Glucose 131 H POC Glucose 129 H Ketones Quantitative Lactic Acid Calcium 8.3 L Magnesium 1.90 Total Bilirubin 1.80 H Direct Bilirubin 0.7 H Indirect Bilirubin 1.1 AST 50 H ALT 33 Alkaline Phosphatase 150 H Ammonia Total Creatine Kinase CK-MB (CK-2) CK-MB (CK-2) Rel Index Troponin T NT-Pro-B Natriuret Pep 503.0 Total Protein 5.7 L Albumin 2.2 L Albumin/Globulin Ratio 0.6 Triglycerides Cholesterol LDL Cholesterol Direct HDL Cholesterol Cholesterol/HDL Ratio Amylase 40 Blood Type Antibody Screen 03/14/19 03/14/19 03/14/19 07:58 07:58 07:58 WBC RBC Hgb Hct MCV MCH MCHC RDW Plt Count Lymph % (Auto) [place] % (Auto) Eos % (Auto) Baso % (Auto) Lymph # [place] # Eos # Baso # Seg Neutrophils % Seg Neutrophils # PT INR APTT VBG pH 7.451 H Sodium Potassium Chloride Carbon Dioxide Anion Gap BUN Creatinine Estimated GFR BUN/Creatinine Ratio Glucose POC Glucose Ketones Quantitative Negative Lactic Acid 1.90 Calcium Magnesium Total Bilirubin Direct Bilirubin Indirect Bilirubin AST ALT Alkaline Phosphatase Ammonia Total Creatine Kinase CK-MB (CK-2) CK-MB (CK-2) Rel Index Troponin T NT-Pro-B Natriuret Pep Total Protein Albumin Albumin/Globulin Ratio Triglycerides Cholesterol LDL Cholesterol Direct HDL Cholesterol Cholesterol/HDL Ratio Amylase Blood Type Antibody Screen 03/14/19 03/14/19 03/14/19 08:00 08:24 08:24 WBC RBC Hgb Hct MCV MCH MCHC RDW Plt Count Lymph % (Auto) [place] % (Auto) Eos % (Auto) Baso % (Auto) Lymph # [place] # Eos # Baso # Seg Neutrophils % Seg Neutrophils # PT 14.8 INR 1.17 H APTT 28.8 VBG pH Sodium Potassium Chloride Carbon Dioxide Anion Gap BUN Creatinine Estimated GFR BUN/Creatinine Ratio Glucose POC Glucose Ketones Quantitative Lactic Acid Calcium Magnesium Total Bilirubin Direct Bilirubin Indirect Bilirubin AST ALT Alkaline Phosphatase Ammonia 117.0 H Total Creatine Kinase CK-MB (CK-2) CK-MB (CK-2) Rel Index Troponin T NT-Pro-B Natriuret Pep Total Protein Albumin Albumin/Globulin Ratio Triglycerides Cholesterol LDL Cholesterol Direct HDL Cholesterol Cholesterol/HDL Ratio Amylase Blood Type AB NEGATIVE Antibody Screen Negative 03/14/19 08:24 WBC RBC Hgb Hct MCV MCH MCHC RDW Plt Count Lymph % (Auto) [place] % (Auto) Eos % (Auto) Baso % (Auto) Lymph # [place] # Eos # Baso # Seg Neutrophils % Seg Neutrophils # PT INR APTT VBG pH Sodium Potassium Chloride Carbon Dioxide Anion Gap BUN Creatinine Estimated GFR BUN/Creatinine Ratio Glucose POC Glucose Ketones Quantitative Lactic Acid Calcium Magnesium Total Bilirubin Direct Bilirubin Indirect Bilirubin AST ALT Alkaline Phosphatase Ammonia Total Creatine Kinase 214 H CK-MB (CK-2) 3.9 CK-MB (CK-2) Rel Index 1.8 Troponin T 0.050 H NT-Pro-B Natriuret Pep Total Protein Albumin Albumin/Globulin Ratio Triglycerides 62 Cholesterol 112 LDL Cholesterol Direct 62 HDL Cholesterol 48 Cholesterol/HDL Ratio 2.33 Amylase Blood Type Antibody Screen - EKG Data -: EKG Interpreted by Md EKG shows normal: sinus rhythm, axis (left axis deviation/LAFB.), intervals, QRS complexes, ST-T waves Rate: normal - EKG Data Interpretation: nonspecific ST-T wave ty - Radiology Data Radiology results: report reviewed (CXR x-ray no acute process) Critical care attestation.: If time is entered above; I have spent that time in minutes in the direct care of this critically ill patient, excluding procedure time. ED Disposition Clinical Impression: Hepatic encephalopathy, Chronic liver disease and cirrhosis Anemia Qualifiers: Anemia type: other cause Other causes of anemia: other cause, not classified Qualified Code(s): D64.89 - Other specified anemias Chronic kidney disease Qualifiers: Chronic kidney disease stage: stage 3 (moderate) Qualified Code(s): N18.3 - Chronic kidney disease, stage 3 (moderate) Disposition: 09 OP ADMIT IP TO THIS HOSP Is pt being admited?: Yes Does the pt Need Aspirin: Yes Condition: Stable Referrals: WILLIS MI MD [Primary Care Provider] - 3-5 Days
--- NOTE | 2019-03-14 12:15 | History and Physical Report ---
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 In the ER she was found to have an UTI and started on abx. She also noted to have very distended abdomen with ascitis. Patient states that she is even unable to walk. Patient is Compliant with taking medications at home to include lasix, xifaxan, and lactulose. She was called for admission for further Mx. PAST MEDICAL HISTORY: hypertension, diabetes, CKD, cirrhosis PAST SURGICAL HISTORY: tubal ligation, TIPS SOCIAL HISTORY: No alcohol,tobacco, no drug use FAMILY HISTORY: Hypertension Review of Systems Constitutional: weakness. denies: chills, fever Eyes: denies: eye pain, eye discharge, vision change ENT: denies: ear pain, throat pain Respiratory: denies: cough, shortness of breath, wheezing Cardiovascular: denies: chest pain, palpitations Endocrine: no symptoms reported Gastrointestinal: denies: abdominal pain, nausea, diarrhea Genitourinary: denies: dysuria, discharge Musculoskeletal: denies: back pain, joint swelling, arthralgia Skin: denies: rash, lesions Neurological: denies: headache, weakness, paresthesias Psychiatric: denies: anxiety, depression Hematological/Lymphatic: denies: easy bleeding, easy bruising Medications and Allergies Allergies Allergy/AdvReac Type Severity Reaction Status Date / Time No Known Allergies Allergy Verified 03/14/19 07:12 Home Medications Medication Instructions Recorded Confirmed Last Taken Type Famotidine [Pepcid] 20 mg PO DAILY #30 tablet 03/14/18 03/14/19 03/03/19 Rx 20 mg Lactulose 30 ml PO BID 08/26/18 03/14/19 03/03/19 History 30 ml Furosemide [Lasix TAB] 40 mg PO QDAY 10/19/18 03/14/19 03/03/19 History 40 mg Linagliptin [Tradjenta] 5 mg PO QDAY #30 tablet 11/11/18 03/14/19 03/03/19 Rx 5 mg Potassium Chloride [K-Dur] 20 meq PO QDAY 30 Days #30 tablet 11/11/18 03/14/19 03/03/19 Rx 20 meq Rifaximin [Xifaxan] 550 mg PO BID tablet 11/11/18 03/14/19 03/03/19 Rx 550 mg Januvia 50 mg PO DAILY 01/25/19 03/14/19 03/03/19 History 50 mg Insulin Aspart (Nf) [Novolog] 25 unit SQ AC 02/25/19 03/14/19 03/03/19 History 30 units Nitrofurantoin [place]/M-Cryst 100 mg PO Q12HR #20 capsule 03/11/19 03/14/19 Unknown Rx [Macrobid CAP] Active Meds: Active Medications Sodium Chloride (Nacl 0.9% 1000 Ml) 1,000 mls @ 125 mls/hr IV ONCE ONE Stop: 03/14/19 16:20 Last Admin: 03/14/19 09:21 Dose: 125 mls/hr Documented by: Exam - Physical Exam Narrative exam: General Apperance: The patient sitting in bed no acute distress HEENT: Normocephalic, atraumatic. Pupils equally round and reactive to light, unable to do extraocular movement intact, and no sclericterus or JVD or thyromegaly or nodule. Neck supple, no carotid bruit, mucous membranes moist, no exudate or erythema Heart: S1-S2, regular is rhythm Lungs: Clear to auscultation bilaterally, breathing comfortable Abdomen: Positive bowel sounds, soft, nontender, distended, no organomegaly Extremities: No edema cyanosis clubbing Skin: no rash, nodule, warm and dry Neuro: moves extremities, no focal deficit - Constitutional Vitals: Temp Pulse Resp BP Pulse Ox 97.9 F 72 12 134/68 99 03/14/19 07:54 03/14/19 11:00 03/14/19 08:15 03/14/19 11:00 03/14/19 11:00 Results - Labs CBC & Chem 7: 03/15/19 04:37 03/15/19 04:37 Labs: Abnormal lab results 03/14/19 03/14/19 03/14/19 Range/Units 07:28 07:58 07:58 WBC 3.3 L (4.5-11.0) K/mm3 RBC 2.52 L (3.65-5.03) M/mm3 Hgb 7.4 L (10.1-14.3) gm/dl Hct 21.8 L (30.3-42.9) % RDW 20.0 H (13.2-15.2) % Plt Count 79 L (140-440) K/mm3 [place] % (Auto) 15.5 H (0.0-7.3) % Baso % (Auto) 2.1 H (0.0-1.8) % Lymph # 0.7 L (1.2-5.4) K/mm3 INR (0.87-1.13) VBG pH (7.320-7.420) BUN 39 H (7-17) mg/dL Creatinine 2.1 H (0.7-1.2) mg/dL Glucose 131 H (65-100) mg/dL POC Glucose 129 H (70-105) Calcium 8.3 L (8.4-10.2) mg/dL Total Bilirubin 1.80 H (0.1-1.2) mg/dL Direct Bilirubin 0.7 H (0-0.2) mg/dL AST 50 H (5-40) units/L Alkaline Phosphatase 150 H (35-129) units/L Ammonia (25-60) umol/L Total Creatine Kinase (30-135) units/L Troponin T (0.00-0.029) ng/mL Total Protein 5.7 L (6.3-8.2) g/dL Albumin 2.2 L (3.9-5) g/dL 03/14/19 03/14/19 03/14/19 Range/Units 07:58 08:24 08:24 WBC (4.5-11.0) K/mm3 RBC (3.65-5.03) M/mm3 Hgb (10.1-14.3) gm/dl Hct (30.3-42.9) % RDW (13.2-15.2) % Plt Count (140-440) K/mm3 [place] % (Auto) (0.0-7.3) % Baso % (Auto) (0.0-1.8) % Lymph # (1.2-5.4) K/mm3 INR 1.17 H (0.87-1.13) VBG pH 7.451 H (7.320-7.420) BUN (7-17) mg/dL Creatinine (0.7-1.2) mg/dL Glucose (65-100) mg/dL POC Glucose (70-105) Calcium (8.4-10.2) mg/dL Total Bilirubin (0.1-1.2) mg/dL Direct Bilirubin (0-0.2) mg/dL AST (5-40) units/L Alkaline Phosphatase (35-129) units/L Ammonia 117.0 H (25-60) umol/L Total Creatine Kinase (30-135) units/L Troponin T (0.00-0.029) ng/mL Total Protein (6.3-8.2) g/dL Albumin (3.9-5) g/dL 03/14/19 Range/Units 08:24 WBC (4.5-11.0) K/mm3 RBC (3.65-5.03) M/mm3 Hgb (10.1-14.3) gm/dl Hct (30.3-42.9) % RDW (13.2-15.2) % Plt Count (140-440) K/mm3 [place] % (Auto) (0.0-7.3) % Baso % (Auto) (0.0-1.8) % Lymph # (1.2-5.4) K/mm3 INR (0.87-1.13) VBG pH (7.320-7.420) BUN (7-17) mg/dL Creatinine (0.7-1.2) mg/dL Glucose (65-100) mg/dL POC Glucose (70-105) Calcium (8.4-10.2) mg/dL Total Bilirubin (0.1-1.2) mg/dL Direct Bilirubin (0-0.2) mg/dL AST (5-40) units/L Alkaline Phosphatase (35-129) units/L Ammonia (25-60) umol/L Total Creatine Kinase 214 H (30-135) units/L Troponin T 0.050 H (0.00-0.029) ng/mL Total Protein (6.3-8.2) g/dL Albumin (3.9-5) g/dL - Imaging and Cardiology Chest x-ray: report reviewed (no acute findings) Assessment and Plan Cirrhosis with ascitis -continue lasix, xifaxan, and lactulose (titrate to BMs x 2-3 per day) -low sodium diet -continue to trend labs and supportive care - order paracentesis, consult GI hypertension, stable, cont home meds Pancytopenia, likely from cirrhosis - monitor CBC, Hb 7.4 today CKD, Cr at baseline - avoid nephrotoxins - monitor BMP DM type 2 - Check fingersticks for BG, place on SSI and home regimen for insulin UTI, POA - cont abx, obtain cx DVT prophalaxis, lovenox Admitted to [facility] unit with observation. will follow clinical course.
--- NOTE | 2019-03-14 15:42 | Gastroenterology Consultation ---
History of Present Illness - Reason for Consult Consult date: 03/14/19 ascites Requesting physician: MARCUS HENDERSON - History of Present Illness Patient is a 68 y/o female with PMH of CKD, HTN, DM, and cirrhosis who presented for paracentesis today but had c/o generalized weakness and was found to have an UTI upon admission to which she is being treated with antibiotics. GI has been consulted for ascites/cirrhosis. Patient is well known to our service and is followed by Dr. Huang. 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 Compliant with taking medications at home to include lasix, xifaxan, and lactulose. This afternoon patient was resting in bed w/o acute distress with at bedside. Currently w/o GI complaints such as abd pain, N/V, jaundice, signs of bleeding, or LGI symptoms. Tolerating diet. Past History Past Medical History: other (as per HPI) Past Surgical History: Other (tubal ligation, TIPS) Social history: denies: smoking, alcohol abuse Family history: hypertension Medications and Allergies Allergies Allergy/AdvReac Type Severity Reaction Status Date / Time No Known Allergies Allergy Verified 03/14/19 07:12 Home Medications Medication Instructions Recorded Confirmed Last Taken Type Famotidine [Pepcid] 20 mg PO DAILY #30 tablet 03/14/18 03/14/19 03/03/19 Rx 20 mg Lactulose 30 ml PO BID 08/26/18 03/14/19 03/03/19 History 30 ml Furosemide [Lasix TAB] 40 mg PO QDAY 10/19/18 03/14/19 03/03/19 History 40 mg Linagliptin [Tradjenta] 5 mg PO QDAY #30 tablet 11/11/18 03/14/19 03/03/19 Rx 5 mg Potassium Chloride [K-Dur] 20 meq PO QDAY 30 Days #30 tablet 11/11/18 03/14/19 03/03/19 Rx 20 meq Rifaximin [Xifaxan] 550 mg PO BID tablet 11/11/18 03/14/19 03/03/19 Rx 550 mg Januvia 50 mg PO DAILY 01/25/19 03/14/19 03/03/19 History 50 mg Insulin Aspart (Nf) [Novolog] 25 unit SQ AC 02/25/19 03/14/19 03/03/19 History 30 units Nitrofurantoin [place]/M-Cryst 100 mg PO Q12HR #20 capsule 03/11/19 03/14/19 Unknown Rx [Macrobid CAP] Active Meds: Active Medications Famotidine (Pepcid) 20 mg PO DAILY [place] Furosemide (Lasix) 40 mg PO QDAY [place] Sodium Chloride (Nacl 0.9% 1000 Ml) 1,000 mls @ 125 mls/hr IV ONCE ONE Stop: 03/14/19 16:20 Last Admin: 03/14/19 09:21 Dose: 125 mls/hr Documented by: Insulin Human Lispro (Humalog) 25 unit SUB-Q AC [place] Insulin Human Regular (Humulin R) 0 units SUB-Q ACHS [place]; Protocol Linagliptin (Tradjenta) 5 mg PO QDAY [place] Rifaximin (Xifaxan) 550 mg PO BID [facility] medication reviewed/updated as required Review of Systems - Review of Systems All systems: negative Gastrointestinal: other (ascites), no abdominal pain, no nausea, no vomiting Exam - Constitutional Vital Signs: Temp Pulse Resp BP Pulse Ox 97.1 F L 70 22 124/51 99 03/14/19 13:22 03/14/19 13:22 03/14/19 13:22 03/14/19 13:22 03/14/19 14:16 General appearance: no acute distress - EENT Eyes: PERRL, EOM intact ENT: hearing intact - Respiratory Respiratory effort: normal - Cardiovascular Rhythm: regular - Gastrointestinal General gastrointestinal: Present: soft, non-tender, non-distended, normal bowel sounds - Integumentary Integumentary: Present: warm, dry - Neurologic Neurological: alert and oriented x3 - Labs CBC & Chem 7: 03/14/19 07:58 03/14/19 07:58 Lab Results: Laboratory Results - last 24 hr 03/14/19 03/14/19 03/14/19 07:28 07:58 07:58 WBC 3.3 L RBC 2.52 L Hgb 7.4 L Hct 21.8 L MCV 87 MCH 30 MCHC 34 RDW 20.0 H Plt Count 79 L Lymph % (Auto) 21.9 [place] % (Auto) 15.5 H Eos % (Auto) 3.7 Baso % (Auto) 2.1 H Lymph # 0.7 L [place] # 0.5 Eos # 0.1 Baso # 0.1 Seg Neutrophils % 56.8 Seg Neutrophils # 1.8 PT INR APTT VBG pH Sodium 142 D Potassium 3.6 Chloride 103.6 Carbon Dioxide 23 Anion Gap 19 BUN 39 H Creatinine 2.1 H Estimated GFR 23 BUN/Creatinine Ratio 19 Glucose 131 H POC Glucose 129 H Ketones Quantitative Lactic Acid Calcium 8.3 L Magnesium 1.90 Total Bilirubin 1.80 H Direct Bilirubin 0.7 H Indirect Bilirubin 1.1 AST 50 H ALT 33 Alkaline Phosphatase 150 H Ammonia Total Creatine Kinase CK-MB (CK-2) CK-MB (CK-2) Rel Index Troponin T NT-Pro-B Natriuret Pep 503.0 Total Protein 5.7 L Albumin 2.2 L Albumin/Globulin Ratio 0.6 Triglycerides Cholesterol LDL Cholesterol Direct HDL Cholesterol Cholesterol/HDL Ratio Amylase 40 Blood Type Antibody Screen 03/14/19 03/14/19 03/14/19 07:58 07:58 07:58 WBC RBC Hgb Hct MCV MCH MCHC RDW Plt Count Lymph % (Auto) [place] % (Auto) Eos % (Auto) Baso % (Auto) Lymph # [place] # Eos # Baso # Seg Neutrophils % Seg Neutrophils # PT INR APTT VBG pH 7.451 H Sodium Potassium Chloride Carbon Dioxide Anion Gap BUN Creatinine Estimated GFR BUN/Creatinine Ratio Glucose POC Glucose Ketones Quantitative Negative Lactic Acid 1.90 Calcium Magnesium Total Bilirubin Direct Bilirubin Indirect Bilirubin AST ALT Alkaline Phosphatase Ammonia Total Creatine Kinase CK-MB (CK-2) CK-MB (CK-2) Rel Index Troponin T NT-Pro-B Natriuret Pep Total Protein Albumin Albumin/Globulin Ratio Triglycerides Cholesterol LDL Cholesterol Direct HDL Cholesterol Cholesterol/HDL Ratio Amylase Blood Type Antibody Screen 03/14/19 03/14/19 03/14/19 08:00 08:24 08:24 WBC RBC Hgb Hct MCV MCH MCHC RDW Plt Count Lymph % (Auto) [place] % (Auto) Eos % (Auto) Baso % (Auto) Lymph # [place] # Eos # Baso # Seg Neutrophils % Seg Neutrophils # PT 14.8 INR 1.17 H APTT 28.8 VBG pH Sodium Potassium Chloride Carbon Dioxide Anion Gap BUN Creatinine Estimated GFR BUN/Creatinine Ratio Glucose POC Glucose Ketones Quantitative Lactic Acid Calcium Magnesium Total Bilirubin Direct Bilirubin Indirect Bilirubin AST ALT Alkaline Phosphatase Ammonia 117.0 H Total Creatine Kinase CK-MB (CK-2) CK-MB (CK-2) Rel Index Troponin T NT-Pro-B Natriuret Pep Total Protein Albumin Albumin/Globulin Ratio Triglycerides Cholesterol LDL Cholesterol Direct HDL Cholesterol Cholesterol/HDL Ratio Amylase Blood Type AB NEGATIVE Antibody Screen Negative 03/14/19 08:24 WBC RBC Hgb Hct MCV MCH MCHC RDW Plt Count Lymph % (Auto) [place] % (Auto) Eos % (Auto) Baso % (Auto) Lymph # [place] # Eos # Baso # Seg Neutrophils % Seg Neutrophils # PT INR APTT VBG pH Sodium Potassium Chloride Carbon Dioxide Anion Gap BUN Creatinine Estimated GFR BUN/Creatinine Ratio Glucose POC Glucose Ketones Quantitative Lactic Acid Calcium Magnesium Total Bilirubin Direct Bilirubin Indirect Bilirubin AST ALT Alkaline Phosphatase Ammonia Total Creatine Kinase 214 H CK-MB (CK-2) 3.9 CK-MB (CK-2) Rel Index 1.8 Troponin T 0.050 H NT-Pro-B Natriuret Pep Total Protein Albumin Albumin/Globulin Ratio Triglycerides 62 Cholesterol 112 LDL Cholesterol Direct 62 HDL Cholesterol 48 Cholesterol/HDL Ratio 2.33 Amylase Blood Type Antibody Screen Assessment and Plan 1.ascites 2.cirrhosis -afebrile -WBC WNL -H/H 7.4/08/12 -plt 79, INR 1.17 -LFTs-T.jeferson 1.80, AST 50, ALT 33, alk phos 150 -ammonia 117 -last paracentesis 03/04/19 with 5200ml fluid removed -etiology- patient has a hx of 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 Tolerating diet. No signs of bleeding and noted to be alert and oriented x 3 upon exam. -repeat LVP pending for today -continue lasix, xifaxan, and lactulose (titrate to BMs x 2-3 per day) -low sodium diet -continue to trend labs and supportive care -if labs stable in am and no signs of SBP, patient okay to be d/c per GI standpoint with f/u in clinic
--- NOTE | 2019-03-14 16:02 | Procedure Note ---
Date of procedure: 03/14/19 Pre-op diagnosis: ascites Post-op diagnosis: same Procedure: US paracentesis Findings: moderate ascites Anesthesia: local Surgeon: KAYE BROWN Estimated blood loss: none Pathology: none Specimen disposition: other (60cc saved in case needed) Condition: stable Disposition: floor
[2019-03-14] MEDS: FUROSEMIDE 40 MG TAB PO SCH (16:14)
[2019-03-14] MEDS: RIFAXIMIN 550 MG TAB PO SCH ×2 (16:14→23:02)
[2019-03-14] MEDS: INSULIN LISPRO 100 UNIT/ML SUB-Q SCH (16:20)
[2019-03-14] MEDS: INSULIN REGULAR, HUMAN 100 UNITS/1 ML SUB-Q SCH ×2 (16:20→23:14)
--- NOTE | 2019-03-14 16:29 | Ultrasound Report ---
ULTRASOUND-GUIDED PARACENTESIS HISTORY: ascitis. PROCEDURE: The risks (including but not limited to bleeding, infection, and bowel injury) and benefi ts were explained to the patient and informed consent was obtained. A time out procedure was perform ed. Ultrasound was used to evaluate the abdomen and locate the largest ascites fluid pocket. Once the sk in was marked, the procedure site was prepped and draped in the usual sterile fashion and lidocaine w as used for local anesthesia. A skin antelmo was made and a 5 Croatian centesis catheter was placed. The patient was monitored closely throughout the procedure, and a total of 5200 mL of cloudy brown fluid was aspirated. 60 cc of fluid was saved in case labs were needed. No labs were ordered. The patient tolerated the procedure well with no complications. IMPRESSION: Successful ultrasound-guided paracentesis as described. Signer Name: Ash Pollock Jr, MD Signed: 03/14/2019 4:24 PM Workstation Name: [id number]
[2019-03-14] MEDS ORDERED: INSULIN ASPART 25 UNIT SQ SCH (16:30)
[2019-03-14] MEDS: LACTULOSE 20 GM/30 ML ORAL LIQD PO SCH ×2 (17:46→23:02)
[2019-03-14 19:44] LABS: Total Cells Counted 100 /mm3
[2019-03-14 22:39] LABS: Bacteria,Urine 1+ /HPF (Negative); Mucus,Urine FEW /HPF
[2019-03-14 22:43] LABS: Color,Urine Yellow (Yellow)
[2019-03-14 22:44] LABS: Bilirubin,Urine Negative (Negative); Blood,Urine Small (Negative); Protein,Urine <15 mg/dL mg/dL (Negative); Urobilinogen,Urine < 2.0 mg/dL (<2.0)
[2019-03-15 04:58] LABS: Basophils # (Auto) 0.1 K/mm3 (0.0-0.1); Basophils % (Auto) 2.1 % (0.0-1.8); Eosinophils # (Auto) 0.1 K/mm3 (0.0-0.4); Eosinophils % (Auto) 3.6 % (0.0-4.3); Hemoglobin 6.7 gm/dl (10.1-14.3); Lymphocytes # (Auto) 0.6 K/mm3 (1.2-5.4); Lymphocytes % (Auto) 17.4 % (13.4-35.0); Mean Corpuscular HGB Conc 34 % (30-34); Mean Corpuscular Volume 88 fl (79-97); Monocytes # (Auto) 0.5 K/mm3 (0.0-0.8); Monocytes % (Auto) 13.9 % (0.0-7.3); Red Blood Count 2.24 M/mm3 (3.65-5.03); Red Cell Distribution Width 19.8 % (13.2-15.2)
[2019-03-15 05:13] LABS: INR 1.2 (0.87-1.13)
[2019-03-15 05:17] LABS: Albumin 1.7 g/dL (3.9-5)
[2019-03-15 05:30] LABS: Hematocrit 19.6 % (30.3-42.9); Platelet Count 58 K/mm3 (140-440)
[2019-03-15 06:08] LABS: Calcium 7.8 mg/dL (8.4-10.2)
[2019-03-15] MEDS ORDERED: SODIUM CHLORIDE 0.9% 500 ML 500 ML IV ONE (06:23)
[2019-03-15] MEDS: LACTULOSE 20 GM/30 ML ORAL LIQD PO SCH ×3 (07:22→17:35)
[2019-03-15] MEDS: INSULIN LISPRO 100 UNIT/ML SUB-Q SCH ×3 (07:41→16:44)
[2019-03-15] MEDS ORDERED: SODIUM CHLORIDE 0.9% 500 ML 500 ML ONE (09:46)
[2019-03-15] MEDS ORDERED: LINAGLIPTIN 5 MG TAB PO SCH (10:00)
[2019-03-15] MEDS ORDERED: NON-FORMULARY EACH (Januvia 50 MG) PO SCH (10:00)
--- NOTE | 2019-03-15 10:14 | Gastroenterology Progress Note ---
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 No evidence of abd pain, N/V, or active signs of bleeding. -given lactulose enema now -continue lasix, xifaxan, and lactulose (titrate to BMs x 2-3 per day) -low sodium diet -LVP as needed -continue to trend labs and supportive care -will follow Subjective Date of service: 03/15/19 Principal diagnosis: ascites/cirrhosis Interval history: Patient noted to be somnolent and confused this am. No evidence of abd pain, N/V, or signs of bleeding. Objective - Constitutional Vitals: Temp Pulse Resp BP Pulse Ox 98.2 F 89 18 130/59 96 03/15/19 09:45 03/15/19 09:45 03/15/19 09:45 03/15/19 09:45 03/15/19 09:45 General appearance: other (somnolent/confused) - Respiratory Respiratory effort: normal - Cardiovascular Rhythm: regular - Gastrointestinal General gastrointestinal: Present: soft, non-distended, normal bowel sounds - Integumentary Integumentary: Present: warm, dry - Labs CBC & Chem 7: 03/15/19 04:37 03/15/19 04:37 Labs: Laboratory Results - last 24 hr 03/14/19 03/14/19 03/14/19 08:00 16:25 21:55 WBC RBC Hgb Hct MCV MCH MCHC RDW Plt Count Lymph % (Auto) [place] % (Auto) Eos % (Auto) Baso % (Auto) Lymph # [place] # Eos # Baso # Seg Neutrophils % Seg Neutrophils # PT INR Sodium Potassium Chloride Carbon Dioxide Anion Gap BUN Creatinine Estimated GFR BUN/Creatinine Ratio Glucose POC Glucose 98 196 H Calcium Total Bilirubin AST ALT Alkaline Phosphatase Ammonia Total Protein Albumin Albumin/Globulin Ratio Urine Color Urine Turbidity Urine pH Ur Specific [place] Urine Protein Urine Glucose (UA) Urine Ketones Urine Blood Urine Nitrite Ur Reducing Substances Urine Bilirubin Urine Ictotest Urine Urobilinogen Ur Leukocyte Esterase Urine WBC (Auto) Urine RBC (Auto) U Epithel Cells (Auto) Urine Bacteria (Auto) Urine Mucus Fluid Type Fluid Color Fluid Appearance Fluid WBC Fluid RBC Fluid Seg Neutrophils Fluid Lymphocytes Fluid Reactive Lymphs Fluid Monocytes Fluid Eosinophils Fluid Basophils Blood Type AB NEGATIVE Antibody Screen Negative Crossmatch See Detail 03/14/19 03/14/19 03/15/19 22:00 Unknown 04:37 WBC 3.2 L RBC 2.24 L Hgb 6.7 L Hct 19.6 L* MCV 88 MCH 30 MCHC 34 RDW 19.8 H Plt Count 58 L Lymph % (Auto) 17.4 [place] % (Auto) 13.9 H Eos % (Auto) 3.6 Baso % (Auto) 2.1 H Lymph # 0.6 L [place] # 0.5 Eos # 0.1 Baso # 0.1 Seg Neutrophils % 63.0 Seg Neutrophils # 2.0 PT INR Sodium Potassium Chloride Carbon Dioxide Anion Gap BUN Creatinine Estimated GFR BUN/Creatinine Ratio Glucose POC Glucose Calcium Total Bilirubin AST ALT Alkaline Phosphatase Ammonia Total Protein Albumin Albumin/Globulin Ratio Urine Color Yellow Urine Turbidity Clear Urine pH 6.0 Ur Specific [place] 1.015 Urine Protein <15 mg/dl Urine Glucose (UA) Negative Urine Ketones Negative Urine Blood Small A Urine Nitrite Negative Ur Reducing Substances Not Reportable Urine Bilirubin Negative Urine Ictotest Not Reportable Urine Urobilinogen < 2.0 Ur Leukocyte Esterase Small Urine WBC (Auto) 4.0 Urine RBC (Auto) 2.0 U Epithel Cells (Auto) < 1.0 Urine Bacteria (Auto) 1+ Urine Mucus Few Fluid Type Ascitic Fluid Color Red Fluid Appearance Cloudy Fluid WBC 263 Fluid RBC 5062 Fluid Seg Neutrophils 7.0 Fluid Lymphocytes 58.0 Fluid Reactive Lymphs 3.0 Fluid Monocytes 32.0 Fluid Eosinophils 0 Fluid Basophils 0 Blood Type Antibody Screen Crossmatch 03/15/19 03/15/19 03/15/19 04:37 04:37 04:37 WBC RBC Hgb Hct MCV MCH MCHC RDW Plt Count Lymph % (Auto) [place] % (Auto) Eos % (Auto) Baso % (Auto) Lymph # [place] # Eos # Baso # Seg Neutrophils % Seg Neutrophils # PT 15.1 H INR 1.20 H Sodium 142 Potassium 3.7 Chloride 106.2 Carbon Dioxide 24 Anion Gap 16 BUN 34 H Creatinine 2.1 H Estimated GFR 23 BUN/Creatinine Ratio 16 Glucose 233 H POC Glucose Calcium 7.8 L Total Bilirubin 1.30 H AST 44 H ALT 27 Alkaline Phosphatase 124 Ammonia 193.0 H Total Protein 4.9 L Albumin 1.7 L Albumin/Globulin Ratio 0.5 Urine Color Urine Turbidity Urine pH Ur Specific [place] Urine Protein Urine Glucose (UA) Urine Ketones Urine Blood Urine Nitrite Ur Reducing Substances Urine Bilirubin Urine Ictotest Urine Urobilinogen Ur Leukocyte Esterase Urine WBC (Auto) Urine RBC (Auto) U Epithel Cells (Auto) Urine Bacteria (Auto) Urine Mucus Fluid Type Fluid Color Fluid Appearance Fluid WBC Fluid RBC Fluid Seg Neutrophils Fluid Lymphocytes Fluid Reactive Lymphs Fluid Monocytes Fluid Eosinophils Fluid Basophils Blood Type Antibody Screen Crossmatch 03/15/19 08:10 WBC RBC Hgb Hct MCV MCH MCHC RDW Plt Count Lymph % (Auto) [place] % (Auto) Eos % (Auto) Baso % (Auto) Lymph # [place] # Eos # Baso # Seg Neutrophils % Seg Neutrophils # PT INR Sodium Potassium Chloride Carbon Dioxide Anion Gap BUN Creatinine Estimated GFR BUN/Creatinine Ratio Glucose POC Glucose 272 H Calcium Total Bilirubin AST ALT Alkaline Phosphatase Ammonia Total Protein Albumin Albumin/Globulin Ratio Urine Color Urine Turbidity Urine pH Ur Specific [place] Urine Protein Urine Glucose (UA) Urine Ketones Urine Blood Urine Nitrite Ur Reducing Substances Urine Bilirubin Urine Ictotest Urine Urobilinogen Ur Leukocyte Esterase Urine WBC (Auto) Urine RBC (Auto) U Epithel Cells (Auto) Urine Bacteria (Auto) Urine Mucus Fluid Type Fluid Color Fluid Appearance Fluid WBC Fluid RBC Fluid Seg Neutrophils Fluid Lymphocytes Fluid Reactive Lymphs Fluid Monocytes Fluid Eosinophils Fluid Basophils Blood Type Antibody Screen Crossmatch
[2019-03-15] MEDS: cefTRIAXone/NS 1 GM/50 ML 1 GM/50 ML BAG IV SCH ×2 (10:29→22:57)
[2019-03-15] MEDS: LINAGLIPTIN 5 MG TAB PO SCH (10:56)
[2019-03-15] MEDS ORDERED: LACTULOSE ENEMA 1000 ML PR ONE (11:00)
--- NOTE | 2019-03-15 11:41 | Progress Note ---
Assessment and Plan Assessment and plan: Cirrhosis with ascitis -continue lasix, xifaxan, and lactulose (titrate to BMs x 2-3 per day) -low sodium diet -continue to trend labs and supportive care - GI consulted, following s/p paracentesis hypertension, stable, cont home meds Anemia Hgb 6.7 today Transfuse 1 unit PRBc Pancytopenia, likely from cirrhosis - monitor CBC, CKD, Cr at baseline - avoid nephrotoxins - monitor BMP DM type 2 - Check fingersticks for BG, place on SSI and home regimen for insulin UTI, POA - cont abx, obtain cx DVT prophalaxis, lovenox Discussed with at bedside. History Interval history: Altered mental status Hospitalist Physical - Physical exam Narrative exam: Gen: Not in acute distress, lying in bed,obese HEENT: Normocephalic, atraumatic Neck: supple, no JVD Heart: S1 and S2 reg, no murmurs, rubs or gallop Lungs: Clear to auscultation bilaterally, Abd: soft, non tender, non distended, normal BS, Ext: No edema, no clubbing, no cyanosis Neuro: Lethargic, drowsy,arouseable, follows commands, says few words - Constitutional Vitals: Temp Pulse Resp BP Pulse Ox 98.2 F 87 20 128/52 96 03/15/19 10:00 03/15/19 10:00 03/15/19 10:00 03/15/19 10:00 03/15/19 09:45 Results - Labs CBC & Chem 7: 03/15/19 04:37 03/15/19 04:37 Labs: Laboratory Last Values WBC 3.2 K/mm3 (4.5-11.0) L 03/15/19 04:37 RBC 2.24 M/mm3 (3.65-5.03) L 03/15/19 04:37 Hgb 6.7 gm/dl (10.1-14.3) L 03/15/19 04:37 Hct 19.6 % (30.3-42.9) L* 03/15/19 04:37 MCV 88 fl (79-97) 03/15/19 04:37 MCH 30 pg (28-32) 03/15/19 04:37 MCHC 34 % (30-34) 03/15/19 04:37 RDW 19.8 % (13.2-15.2) H 03/15/19 04:37 Plt Count 58 K/mm3 (140-440) L 03/15/19 04:37 Lymph % (Auto) 17.4 % (13.4-35.0) 03/15/19 04:37 Barron % (Auto) 13.9 % (0.0-7.3) H 03/15/19 04:37 Eos % (Auto) 3.6 % (0.0-4.3) 03/15/19 04:37 Baso % (Auto) 2.1 % (0.0-1.8) H 03/15/19 04:37 Lymph # 0.6 K/mm3 (1.2-5.4) L 03/15/19 04:37 Barron # 0.5 K/mm3 (0.0-0.8) 03/15/19 04:37 Eos # 0.1 K/mm3 (0.0-0.4) 03/15/19 04:37 Baso # 0.1 K/mm3 (0.0-0.1) 03/15/19 04:37 Seg Neutrophils % 63.0 % (40.0-70.0) 03/15/19 04:37 Seg Neutrophils # 2.0 K/mm3 (1.8-7.7) 03/15/19 04:37 PT 15.1 Sec. (12.2-14.9) H 03/15/19 04:37 INR 1.20 (0.87-1.13) H 03/15/19 04:37 APTT 28.8 Sec. (24.2-36.6) 03/14/19 08:24 VBG pH 7.451 (7.320-7.420) H 03/14/19 07:58 Sodium 142 mmol/L (137-145) 03/15/19 04:37 Potassium 3.7 mmol/L (3.6-5.0) 03/15/19 04:37 Chloride 106.2 mmol/L (98-107) 03/15/19 04:37 Carbon Dioxide 24 mmol/L (22-30) 03/15/19 04:37 Anion Gap 16 mmol/L 03/15/19 04:37 BUN 34 mg/dL (7-17) H 03/15/19 04:37 Creatinine 2.1 mg/dL (0.7-1.2) H 03/15/19 04:37 Estimated GFR 23 ml/min 03/15/19 04:37 BUN/Creatinine Ratio 16 % 03/15/19 04:37 Glucose 233 mg/dL (65-100) H 03/15/19 04:37 POC Glucose 272 (70-105) H 03/15/19 08:10 Ketones Quantitative Negative (Negative) 03/14/19 07:58 Lactic Acid 1.90 mmol/L (0.7-2.0) 03/14/19 07:58 Calcium 7.8 mg/dL (8.4-10.2) L 03/15/19 04:37 Magnesium 1.90 mg/dL (1.7-2.3) 03/14/19 07:58 Total Bilirubin 1.30 mg/dL (0.1-1.2) H 03/15/19 04:37 Direct Bilirubin 0.7 mg/dL (0-0.2) H 03/14/19 07:58 Indirect Bilirubin 1.1 mg/dL 03/14/19 07:58 AST 44 units/L (5-40) H 03/15/19 04:37 ALT 27 units/L (7-56) 03/15/19 04:37 Alkaline Phosphatase 124 units/L (35-129) 03/15/19 04:37 Ammonia 193.0 umol/L (25-60) H 03/15/19 04:37 Total Creatine Kinase 214 units/L (30-135) H 03/14/19 08:24 CK-MB (CK-2) 3.9 ng/mL (0.0-4.0) 03/14/19 08:24 CK-MB (CK-2) Rel Index 1.8 (0-4) 03/14/19 08:24 Troponin T 0.030 ng/mL (0.00-0.029) H D 03/15/19 09:56 NT-Pro-B Natriuret Pep 503.0 pg/mL (0-900) 03/14/19 07:58 Total Protein 4.9 g/dL (6.3-8.2) L 03/15/19 04:37 Albumin 1.7 g/dL (3.9-5) L 03/15/19 04:37 Albumin/Globulin Ratio 0.5 % 03/15/19 04:37 Triglycerides 62 mg/dL (2-149) 03/14/19 08:24 Cholesterol 112 mg/dL (50-199) 03/14/19 08:24 LDL Cholesterol Direct 62 mg/dL (50-130) 03/14/19 08:24 HDL Cholesterol 48 mg/dL (40-59) 03/14/19 08:24 Cholesterol/HDL Ratio 2.33 % 03/14/19 08:24 Amylase 40 units/L (27-131) 03/14/19 07:58 Urine Color Yellow (Yellow) 03/14/19 22:00 Urine Turbidity Clear (Clear) 03/14/19 22:00 Urine pH 6.0 (5.0-7.0) 03/14/19 22:00 Ur Specific [place] 1.015 (1.003-1.030) 03/14/19 22:00 Urine Protein <15 mg/dl mg/dL (Negative) 03/14/19 22:00 Urine Glucose (UA) Negative mg/dL (Negative) 03/14/19 22:00 Urine Ketones Negative mg/dL (Negative) 03/14/19 22:00 Urine Blood Small (Negative) A 03/14/19 22:00 Urine Nitrite Negative (Negative) 03/14/19 22:00 Ur Reducing Substances Not Reportable 03/14/19 22:00 Urine Bilirubin Negative (Negative) 03/14/19 22:00 Urine Ictotest Not Reportable 03/14/19 22:00 Urine Urobilinogen < 2.0 mg/dL (<2.0) 03/14/19 22:00 Ur Leukocyte Esterase Small (Negative) 03/14/19 22:00 Urine WBC (Auto) 4.0 /HPF (0.0-6.0) 03/14/19 22:00 Urine RBC (Auto) 2.0 /HPF (0.0-6.0) 03/14/19 22:00 U Epithel Cells (Auto) < 1.0 /HPF (0-13.0) 03/14/19 22:00 Urine Bacteria (Auto) 1+ /HPF (Negative) 03/14/19 22:00 Urine Mucus Few /HPF 03/14/19 22:00 Fluid Type Ascitic 03/14/19 Unknown Fluid Color Red 03/14/19 Unknown Fluid Appearance Cloudy 03/14/19 Unknown Fluid WBC 263 /mm3 03/14/19 Unknown Fluid RBC 5062 /mm3 03/14/19 Unknown Fluid Seg Neutrophils 7.0 % 03/14/19 Unknown Fluid Lymphocytes 58.0 % 03/14/19 Unknown Fluid Reactive Lymphs 3.0 % 03/14/19 Unknown Fluid Monocytes 32.0 % 03/14/19 Unknown Fluid Eosinophils 0 % 03/14/19 Unknown Fluid Basophils 0 % 03/14/19 Unknown Blood Type AB NEGATIVE 03/14/19 08:00 Antibody Screen Negative 03/14/19 08:00 Crossmatch See Detail 03/14/19 08:00 Active Medications - Current Medications Current Medications: Generic Name Dose Route Start Last Admin Trade Name Freq PRN Reason Stop Dose Admin Famotidine 20 mg 03/15/19 10:00 Pepcid PO DAILY CASTILLO Furosemide 40 mg 03/14/19 13:00 03/14/19 16:14 Lasix PO 40 mg QDAY CASTILLO Administration Ceftriaxone Sodium 1 gm in 50 mls @ 100 mls/hr 03/15/19 10:00 Rocephin/Ns 1 Gm/50 Ml IV Q12HR CASTILLO Protocol Insulin Human Lispro 25 unit 03/14/19 16:30 03/14/19 16:20 Humalog SUB-Q Not Given AC CASTILLO Insulin Human Regular 0 units 03/14/19 16:30 03/14/19 23:14 Humulin R SUB-Q 1 units ACHS CASTILLO Administration Protocol Lactulose 20 gm 03/14/19 18:00 03/15/19 07:22 Cephulac PO 20 gm Q6HR CASTILLO Administration Linagliptin 5 mg 03/15/19 10:00 Tradjenta PO QDAY CASTILLO Rifaximin 550 mg 03/14/19 13:00 03/14/19 23:02 Xifaxan PO 550 mg BID CASTILLO Administration
[2019-03-15] MEDS: INSULIN REGULAR, HUMAN 100 UNITS/1 ML SUB-Q SCH ×4 (11:45→22:56)
[2019-03-15] MEDS: FUROSEMIDE 40 MG TAB PO SCH (12:52)
[2019-03-15] MEDS: FAMOTIDINE 20 MG TAB PO SCH (12:52)
[2019-03-15] MEDS: RIFAXIMIN 550 MG TAB PO SCH ×2 (12:53→22:28)
[2019-03-15 19:50] LABS: Hematocrit 26.9 % (30.3-42.9); Hemoglobin 9.4 gm/dl (10.1-14.3)
[2019-03-16] MEDS: LACTULOSE 20 GM/30 ML ORAL LIQD PO SCH ×3 (00:26→12:14)
[2019-03-16 05:53] LABS: Basophils # (Auto) 0.1 K/mm3 (0.0-0.1); Eosinophils # (Auto) 0.1 K/mm3 (0.0-0.4); Eosinophils % (Auto) 3.9 % (0.0-4.3); Hematocrit 21.8 % (30.3-42.9); Hemoglobin 7.5 gm/dl (10.1-14.3); Lymphocytes # (Auto) 0.7 K/mm3 (1.2-5.4); Lymphocytes % (Auto) 21.9 % (13.4-35.0); Mean Corpuscular HGB Conc 34 % (30-34); Mean Corpuscular Volume 89 fl (79-97); Monocytes # (Auto) 0.5 K/mm3 (0.0-0.8); Monocytes % (Auto) 15.4 % (0.0-7.3); Red Blood Count 2.46 M/mm3 (3.65-5.03); Red Cell Distribution Width 18.4 % (13.2-15.2)
[2019-03-16 05:54] LABS: Platelet Count 51 K/mm3 (140-440)
[2019-03-16 05:58] LABS: INR 1.24 (0.87-1.13)
[2019-03-16 06:14] LABS: Albumin 1.6 g/dL (3.9-5); Calcium 7.8 mg/dL (8.4-10.2)
[2019-03-16] MEDS ORDERED: POTASSIUM CHLORIDE 20 MEQ PACKET PO ONE (08:00)
[2019-03-16] MEDS: INSULIN LISPRO 100 UNIT/ML SUB-Q SCH ×2 (08:12→12:14)
[2019-03-16] MEDS: INSULIN REGULAR, HUMAN 100 UNITS/1 ML SUB-Q SCH ×2 (08:13→12:14)
--- NOTE | 2019-03-16 10:01 | Gastroenterology Progress Note ---
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 Noted to be A&O x 3. No evidence of abd pain, N/V, or active signs of bleeding. -continue lasix, xifaxan, and lactulose (titrate to BMs x 2-3 per day) -low sodium diet -LVP as needed -continue to trend labs and supportive care -patient okay to be d/c per GI standpoint on current medications with follow up in clinic -will sign off, please call if needed Subjective Date of service: 03/16/19 Principal diagnosis: cirrhosis Interval history: Patient sitting on the side of the bed this am with no acute distress and mental status significaly improved. Noted to be alert and oriented x 3. Denies abd pain, N/V, or signs of bleeding. Tolerating diet. Objective - Constitutional Vitals: Temp Pulse Resp BP Pulse Ox 98.7 F 96 H 20 117/53 97 03/16/19 07:30 03/16/19 07:30 03/16/19 07:30 03/16/19 07:30 03/16/19 07:30 General appearance: no acute distress - EENT Eyes: PERRL, EOM intact ENT: hearing intact - Respiratory Respiratory effort: normal Respiratory: bilateral: CTA (anterior) - Cardiovascular Rhythm: regular - Gastrointestinal General gastrointestinal: Present: soft, non-tender, non-distended, normal bowel sounds - Integumentary Integumentary: Present: warm, dry - Neurologic Neurological: alert and oriented x3 - Labs CBC & Chem 7: 03/16/19 05:28 03/16/19 05:28 Labs: Laboratory Results - last 24 hr 03/14/19 03/15/19 03/15/19 08:00 09:56 11:49 WBC RBC Hgb Hct MCV MCH MCHC RDW Plt Count Lymph % (Auto) Turner % (Auto) Eos % (Auto) Baso % (Auto) Lymph # Turner # Eos # Baso # Seg Neutrophils % Seg Neutrophils # PT INR Sodium Potassium Chloride Carbon Dioxide Anion Gap BUN Creatinine Estimated GFR BUN/Creatinine Ratio Glucose POC Glucose 291 H Calcium Total Bilirubin AST ALT Alkaline Phosphatase Ammonia Troponin T 0.030 H D Total Protein Albumin Albumin/Globulin Ratio Blood Type AB NEGATIVE Antibody Screen Negative Crossmatch See Detail 03/15/19 03/15/19 03/15/19 16:45 19:28 22:32 WBC RBC Hgb 9.4 L Hct 26.9 L D MCV MCH MCHC RDW Plt Count Lymph % (Auto) Turner % (Auto) Eos % (Auto) Baso % (Auto) Lymph # Turner # Eos # Baso # Seg Neutrophils % Seg Neutrophils # PT INR Sodium Potassium Chloride Carbon Dioxide Anion Gap BUN Creatinine Estimated GFR BUN/Creatinine Ratio Glucose POC Glucose 388 H 234 H Calcium Total Bilirubin AST ALT Alkaline Phosphatase Ammonia Troponin T Total Protein Albumin Albumin/Globulin Ratio Blood Type Antibody Screen Crossmatch 03/16/19 03/16/19 03/16/19 05:28 05:28 05:28 WBC 3.3 L RBC 2.46 L Hgb 7.5 L Hct 21.8 L MCV 89 MCH 30 MCHC 34 RDW 18.4 H Plt Count 51 L Lymph % (Auto) 21.9 Turner % (Auto) 15.4 H Eos % (Auto) 3.9 Baso % (Auto) 2.0 H Lymph # 0.7 L Turner # 0.5 Eos # 0.1 Baso # 0.1 Seg Neutrophils % 56.8 Seg Neutrophils # 1.9 PT 15.5 H INR 1.24 H Sodium 143 Potassium 3.4 L Chloride 108.8 H Carbon Dioxide 20 L Anion Gap 18 BUN 34 H Creatinine 1.8 H Estimated GFR 28 BUN/Creatinine Ratio 19 Glucose 226 H POC Glucose Calcium 7.8 L Total Bilirubin 1.50 H AST 33 ALT 23 Alkaline Phosphatase 117 Ammonia Troponin T Total Protein 4.8 L Albumin 1.6 L Albumin/Globulin Ratio 0.5 Blood Type Antibody Screen Crossmatch 03/16/19 03/16/19 05:28 07:41 WBC RBC Hgb Hct MCV MCH MCHC RDW Plt Count Lymph % (Auto) Turner % (Auto) Eos % (Auto) Baso % (Auto) Lymph # Turner # Eos # Baso # Seg Neutrophils % Seg Neutrophils # PT INR Sodium Potassium Chloride Carbon Dioxide Anion Gap BUN Creatinine Estimated GFR BUN/Creatinine Ratio Glucose POC Glucose 233 H Calcium Total Bilirubin AST ALT Alkaline Phosphatase Ammonia 65.0 H Troponin T Total Protein Albumin Albumin/Globulin Ratio Blood Type Antibody Screen Crossmatch
[2019-03-16] MEDS: RIFAXIMIN 550 MG TAB PO SCH (10:49)
[2019-03-16] MEDS: LINAGLIPTIN 5 MG TAB PO SCH (10:49)
[2019-03-16] MEDS: FUROSEMIDE 40 MG TAB PO SCH (10:49)
[2019-03-16] MEDS: FAMOTIDINE 20 MG TAB PO SCH (10:49)
[2019-03-16] MEDS: cefTRIAXone/NS 1 GM/50 ML 1 GM/50 ML BAG IV SCH (11:04)
--- NOTE | 2019-03-16 12:50 | Discharge Summary ---
Providers - Providers Date of Admission: 03/14/19 10:43 Date of discharge: 03/16/19 Attending physician: MARY CARMEN ROSARIO 03/14/19 15:05 Consult to Physician [CONS] Routine Comment: Consulting Provider: ТАТЬЯНА LI Physician Instructions: Reason For Exam: Ascitis 03/14/19 15:06 Physical Therapy Evaluation and Treat [CONS] Routine Comment: Reason For Exam: placement [facility] Hospital[facility] Condition: Fair Hospital course: This is a 68 y/o female with PMH of CKD, HTN, DM, and cirrhosis 2/2 TYLER, s/p TIPS requiring LVP ~ every 10 days (last LVP 03/04/19-5200ml removed) who presented to ER with c/o generalized weakness, frequent urination and distended abdomen requiring paracentesis. In the ER she was found to have an UTI and started on abx. She also noted to have very distended abdomen with gross ascitis. Patient states that she is even unable to walk. Patient is Compliant with taking medications at home to include lasix, xifaxan, and lactulose. She was admitted, evaluated by GI Physician. Paracentesis was done. For Hgb 6.7, she was transfused 1 Unit PRBC, bringing Hemoglobin up to 9.4. She improved and was discharged home on 03/16/19. Cirrhosis with ascitis -Treated with lasix, xifaxan, and lactulose (titrate to BMs x 2-3 per day) -low sodium diet - GI was consulted, followed during admission s/p paracentesis Acute metabolic encephalopathy from hepatic encephalopathy Lactulose hypertension, stable, Anemia Hgb 6.7 Transfused 1 unit PRBc Pancytopenia, likely from cirrhosis - monitor CBC, CKD, Cr at baseline DM type 2 - Checked fingersticks for BG, placed on SSI and home regimen for insulin UTI, POA - treated with Antibiotic Total time spent on discharge, 35 mins Disposition: TO HOME OR SELFCARE - Discharge Diagnoses (1) Hepatic encephalopathy Status: Acute (2) Acute metabolic encephalopathy Status: Acute (3) Anemia Status: Acute Qualifiers: Anemia type: other cause Other causes of anemia: other cause, not classified Qualified Code(s): D64.89 - Other specified anemias (4) Ascites Status: Acute Qualifiers: Ascites type: other type Qualified Code(s): R18.8 - Other ascites (5) CKD (chronic kidney disease) Status: Acute Qualifiers: Chronic kidney disease stage: stage 3 (moderate) Qualified Code(s): N18.3 - Chronic kidney disease, stage 3 (moderate) (6) Cirrhosis Status: Acute Qualifiers: Ascites presence: with ascites (7) IDDM (insulin dependent diabetes mellitus) Status: Acute Core Measure Documentation - Palliative Care Palliative Care/ Comfort Measures: Not Applicable - Core Measures Any of the following diagnoses?: none Exam - Constitutional Vitals: Temp Pulse Resp BP Pulse Ox 98.7 F 96 H 20 117/53 97 03/16/19 07:30 03/16/19 07:30 03/16/19 07:30 03/16/19 07:30 03/16/19 07:30 Plan Activity: no restrictions Diet: low fat, low cholesterol, low salt, renal Plan of Treatment: 1.Follow up with PCP in 1 week. 2.Follow up with SABRINA Srinivasan in 1 week Follow up with: JORGE GERARDOKONAWA MD JOMAR [Primary Care Provider] - 3-5 Days
[2019-03-16 13:57] VITALS: BP 128/57
== END 2019-03-16 15:40 | disposition home or self-care (01) | DRG 441 ==
LOC: ED 07:11 → 2B-ACE 10:43
PROVIDERS: ADMIT Internal Medicine; ATTEND Internal Medicine
PROC: 0W9G3ZZ Drainage of Peritoneal Cavity, Percutaneous Approach (ICD-10-PCS; principal; 2019-03-14)
PROC: 30233N1 Transfusion of Nonautologous Red Blood Cells into Peripheral Vein, Percutaneous Approach (ICD-10-PCS; 2019-03-15)
DX: K72.90 Hepatic failure, unspecified without coma (principal); G93.41 Metabolic encephalopathy; R18.8 Other ascites; N39.0 Urinary tract infection, site not specified; D61.818 Other pancytopenia; K74.60 Unspecified cirrhosis of liver; N18.3 Chronic kidney disease, stage 3 (moderate); D69.6 Thrombocytopenia, unspecified; I12.9 Hypertensive chronic kidney disease with stage 1 through stage 4 chronic kidney disease, or unspecified chronic kidney disease; E11.22 Type 2 diabetes mellitus with diabetic chronic kidney disease; K75.81 Nonalcoholic steatohepatitis (NASH); Z79.4 Long term (current) use of insulin
CPT/HCPCS: 36415; 36430; 49083; 71045; 80048; 80053; 80061; 80076; 81001; 82010; 82140; 82150; 82550; 82553; 82805; 82962; 83690; 83735; 83880; 84484; 85007; 85014; 85018; 85025; 85610; 85730; 86850; 86900; 86901; 86920; 87040; 87076; 87086; 87116; 87186; 89051; 93005; 93010; G0378; J0696; J1200; J1815; J2405; J2765; J3010; J7030; J7040; P9016

== ENCOUNTER 2019-03-21 11:00 | Inpatient (IN) | payer MEDICARE ==
[2019-03-21] MEDS ORDERED: DEXTROSE 50% IN WATER (25GM) 50 ML SYRINGE IV ONE ×2 (11:28→11:45)
--- NOTE | 2019-03-21 11:40 | Emergency Department Report ---
HPI - General Chief Complaint: Hypoglycemia Time Seen by Provider: 03/21/19 11:29 - HPI HPI: 68-year-old female presents to the emergency department via EMS from home with complaint of hypoglycemia. The patient was apparently altered or lethargic and her checked her blood sugar and was found to be "low." The patient was given an amp of D50 by EMS and her blood sugar went up to the 90s. Upon initial evaluation here, the patient is sleepy but is easily arousable and is oriented. However her blood sugar went back down to about 60. She has a history of insulin-dependent diabetes with a insulin pump and potentially some oral diabetes medications as well. The patient also has a history of chronic kidney disease, hypertension, cirrhosis secondary to TYLER. The patient was just admitted here at the end of last month for issues with her cirrhosis and for paracentesis. ED Past Medical Hx - Past Medical History Previous Medical History?: Yes Hx Hypertension: Yes (MINIMAL HIGH BLOOD NOT ON MEDICINE FOR HTN) Hx Diabetes: Yes (USES INSULIN PUMP) Hx Liver Disease: Yes Hx Renal Disease: Yes Hx Arthritis: No Hx Seizures: No Hx COPD: No Hx Dementia: No Hx HIV: No Additional medical history: TIPS PROCEDURE 02/2018 VAL[facility] WHITE - Surgical History Past Surgical History?: Yes Additional Surgical History: left shoulder surgery, TUBILIGATION - Social History Smoking Status: Never Smoker Substance Use Type: None - Medications Home Medications: Home Medications Medication Instructions Recorded Confirmed Last Taken Type Famotidine [Pepcid] 20 mg PO DAILY #30 tablet 03/14/18 03/14/19 03/03/19 Rx 20 mg Lactulose 30 ml PO BID 08/26/18 03/14/19 03/03/19 History 30 ml Furosemide [Lasix TAB] 40 mg PO QDAY 10/19/18 03/14/19 03/03/19 History 40 mg Linagliptin [Tradjenta] 5 mg PO QDAY #30 tablet 11/11/18 03/14/19 03/03/19 Rx 5 mg Potassium Chloride [K-Dur] 20 meq PO QDAY 30 Days #30 tablet 11/11/18 03/14/19 03/03/19 Rx 20 meq Rifaximin [Xifaxan] 550 mg PO BID tablet 11/11/18 03/14/19 03/03/19 Rx 550 mg Januvia 50 mg PO DAILY 01/25/19 03/14/19 03/03/19 History 50 mg Insulin Aspart (Nf) [NovoLOG 100 25 unit SQ AC 02/25/19 03/14/19 03/03/19 History UNITS/ML VIAL] 30 units Nitrofurantoin [place]/M-Cryst 100 mg PO Q12HR #20 capsule 03/11/19 03/14/19 Unknown Rx [Macrobid CAP] ED Review of Systems ROS: Stated complaint: HYPOGLYCEMIA Other details as noted in HPI Constitutional: weakness. denies: fever Respiratory: denies: cough, shortness of breath Cardiovascular: denies: chest pain, palpitations Gastrointestinal: denies: abdominal pain, vomiting Neurological: confusion. denies: headache Physical Exam - Physical Exam Vital Signs: Vital Signs 03/21/19 03/21/19 11:14 11:24 Pulse Rate 63 Respiratory 18 Rate Blood Pressure 132/56 [Right] O2 Sat by Pulse 100 Oximetry Physical Exam: GENERAL: The patient is well-developed well-nourished. HENT: Normocephalic. Atraumatic. Patient has moist mucous membranes. EYES: Extraocular motions are intact. Pupils equal reactive to light bilaterally. NECK: Supple. Trachea is midline. CHEST/LUNGS: Clear to auscultation. There is no respiratory distress noted. HEART/CARDIOVASCULAR: Regular. There is no tachycardia. There is no murmur. ABDOMEN: Abdomen is soft, nontender. Patient has normal bowel sounds. There is no abdominal distention. SKIN: Skin is warm and dry. NEURO: Patient is very sleepy but is arousable. Once awake she is oriented to person, place and time. Follows commands. Normal speech. Cranial nerves II through XII grossly intact. MUSCULOSKELETAL: There is no tenderness or deformity. There is no evidence of acute injury. ED Course Vital Signs 03/21/19 03/21/19 11:14 11:24 Pulse Rate 63 Respiratory 18 Rate Blood Pressure 132/56 [Right] O2 Sat by Pulse 100 Oximetry ED Medical Decision Making - Lab Data Result diagrams: 03/21/19 12:29 03/21/19 12:29 - Medical Decision Making This patient presented with the complaint of some hypoglycemia after she was found to be lethargic or unresponsive at home. In the emergency department, after receiving some D50, the patient is still very sleepy but is arousable and oriented. Patient was given a second amp of D50 here when her blood sugar came back down to about 60. Blood work is obtained that showed some mild neutropenia, anemia consistent with previous visits with a hemoglobin of 8, and hyperammonemia with a level of about 150. Patient was given some lactulose but this may be a contributing factor to her transient unresponsive episodes and some encephalopathy. Patient will be admitted to the hospital for further evaluation and treatment and was accepted for admission by the hospitalist, Dr. Cobos. Critical Care Time: No Critical care attestation.: If time is entered above; I have spent that time in minutes in the direct care of this critically ill patient, excluding procedure time. ED Disposition Clinical Impression: Hyperammonemia, Diabetic hypoglycemia, Encephalopathy Disposition: OP ADMIT IP TO THIS HOSP Is pt being admited?: Yes Condition: Fair Time of Disposition: 15:05
[2019-03-21 12:45] LABS: Hematocrit 23.1 % (30.3-42.9); Mean Corpuscular HGB Conc 35 % (30-34); Mean Corpuscular Volume 89 fl (79-97); Red Cell Distribution Width 19.3 % (13.2-15.2)
[2019-03-21 12:49] LABS: Platelet Count 62 K/mm3 (140-440)
[2019-03-21] MEDS ORDERED: LACTULOSE 20 GM/30 ML ORAL LIQD PO ONE (12:58)
[2019-03-21 13:09] LABS: Albumin 1.8 g/dL (3.9-5)
[2019-03-21 13:30] LABS: Total Cells Counted 100
[2019-03-21 13:31] LABS: Anisocytosis 2+; Eosinophils % (Manual) 0 % (0.0-4.3); Platelet Estimate Consistent w Auto
--- NOTE | 2019-03-21 14:11 | History and Physical Report ---
History of Present Illness Chief complaint: Confused History of present illness: 68 YO Female with HTN, DM on insulin pump, TYLER S/P TIPS, Cirrhosis presents to ED for evaluation. Pt is lethargic, and unable to provide history. Pt history taken from ED Staff, EMS. per staff, the patient was found to be confused and lethargic by her who then checked the patients serum glucose level. The patient was found to have a low serum glucose. EMS was notified, and upon arrival the patient was found to have confusion and was given and ampule of D50 and transported to [facility]. Pt seen and evaluated in ED and found to have Metabolic Encephalopathy, Acidosis, BELL, and Hyperammonemia. Pt admitted to IMCU and initiated on a Dextrose drip. No further history obtainable. Prior admission on 03/14/19 reviewed. No medication listed at time of admission for reconciliation. Past History Past Medical History: other Past Surgical History: Other (TIPS, Left Shoulder, Tubal Ligation) Social history: , lives with family Medications and Allergies Allergies Allergy/AdvReac Type Severity Reaction Status Date / Time hydrocodone Allergy Vomiting Verified 03/21/19 11:29 Home Medications Medication Instructions Recorded Confirmed Last Taken Type Famotidine [Pepcid] 20 mg PO DAILY #30 tablet 03/14/18 03/14/19 03/03/19 Rx 20 mg Lactulose 30 ml PO BID 08/26/18 03/14/19 03/03/19 History 30 ml Furosemide [Lasix TAB] 40 mg PO QDAY 10/19/18 03/14/19 03/03/19 History 40 mg Linagliptin [Tradjenta] 5 mg PO QDAY #30 tablet 11/11/18 03/14/19 03/03/19 Rx 5 mg Potassium Chloride [K-Dur] 20 meq PO QDAY 30 Days #30 tablet 11/11/18 03/14/19 03/03/19 Rx 20 meq Rifaximin [Xifaxan] 550 mg PO BID tablet 11/11/18 03/14/19 03/03/19 Rx 550 mg Januvia 50 mg PO DAILY 01/25/19 03/14/19 03/03/19 History 50 mg Insulin Aspart (Nf) [NovoLOG 100 25 unit SQ AC 02/25/19 03/14/19 03/03/19 History UNITS/ML VIAL] 30 units Nitrofurantoin [place]/M-Cryst 100 mg PO Q12HR #20 capsule 03/11/19 03/14/19 Unk nown Rx [Macrobid CAP] Review of Systems ROS unobtainable: due to mental status Exam - Constitutional Vitals: Temp Pulse Resp BP Pulse Ox 93.8 F L 68 14 136/61 100 03/21/19 11:55 03/21/19 13:00 03/21/19 13:00 03/21/19 13:00 03/21/19 13:00 General appearance: Present: mild distress - EENT Eyes: Present: miosis - Neck Neck: Present: supple, normal ROM - Respiratory Respiratory effort: normal Respiratory: bilateral: CTA - Cardiovascular Heart Sounds: Present: S1 & S2. Absent: rub, click - Extremities Extremities: pulses symmetrical, No edema Peripheral Pulses: within normal limits - Abdominal General gastrointestinal: Present: soft, non-tender, non-distended, normal bowel sounds Female genitourinary: Present: normal - Integumentary Integumentary: Present: clear, warm, dry - Musculoskeletal Musculoskeletal: gait normal, strength equal bilaterally - Psychiatric Psychiatric: appropriate mood/affect, intact judgment & insight - Neurologic Neurologic: CNII-XII intact, moves all extremities Results - Labs CBC & Chem 7: 03/21/19 12:29 03/21/19 12:29 Labs: Abnormal lab results 03/21/19 03/21/19 03/21/19 Range/Units 11:29 12:29 12:29 WBC 2.2 L (4.5-11.0) K/mm3 RBC 2.60 L (3.65-5.03) M/mm3 Hgb 8.0 L (10.1-14.3) gm/dl Hct 23.1 L (30.3-42.9) % MCHC 35 H (30-34) % RDW 19.3 H (13.2-15.2) % Plt Count 62 L (140-440) K/mm3 Seg Neuts % (Manual) 80.0 H (40.0-70.0) % Lymphocytes % (Manual) 7.0 L (13.4-35.0) % Monocytes % (Manual) 12.0 H (0.0-7.3) % Lymphocytes # (Manual) 0.2 L (1.2-5.4) K/mm3 VBG pH (7.320-7.420) Chloride 107.3 H (98-107) mmol/L Carbon Dioxide 18 L (22-30) mmol/L BUN 37 H (7-17) mg/dL Creatinine 1.6 H (0.7-1.2) mg/dL POC Glucose 62 L (70-105) Calcium 8.0 L (8.4-10.2) mg/dL AST 71 H (5-40) units/L Alkaline Phosphatase 172 H (35-129) units/L Ammonia (25-60) umol/L Total Protein 5.3 L (6.3-8.2) g/dL Albumin 1.8 L (3.9-5) g/dL 03/21/19 03/21/19 Range/Units 12:29 12:29 WBC (4.5-11.0) K/mm3 RBC (3.65-5.03) M/mm3 Hgb (10.1-14.3) gm/dl Hct (30.3-42.9) % MCHC (30-34) % RDW (13.2-15.2) % Plt Count (140-440) K/mm3 Seg Neuts % (Manual) (40.0-70.0) % Lymphocytes % (Manual) (13.4-35.0) % Monocytes % (Manual) (0.0-7.3) % Lymphocytes # (Manual) (1.2-5.4) K/mm3 VBG pH 7.475 H (7.320-7.420) Chloride (98-107) mmol/L Carbon Dioxide (22-30) mmol/L BUN (7-17) mg/dL Creatinine (0.7-1.2) mg/dL POC Glucose (70-105) Calcium (8.4-10.2) mg/dL AST (5-40) units/L Alkaline Phosphatase (35-129) units/L Ammonia 149.0 H (25-60) umol/L Total Protein (6.3-8.2) g/dL Albumin (3.9-5) g/dL Assessment and Plan - Patient Problems (1) Metabolic encephalopathy Current Visit: Yes Status: Acute Plan to address problem: Lactulose , Neuro check, supportive care,ammonia level, repeat ammonia level in am (2) BELL (acute kidney injury) Current Visit: Yes Status: Acute Plan to address problem: monitor uop q shift, IVF resuscitation therapy as tolerated (3) Cirrhosis Current Visit: Yes Status: Acute Qualifiers: Ascites presence: with ascites Plan to address problem: supportive care, serial abdominal exam. (4) Hypoglycemia Current Visit: Yes Status: Acute Plan to address problem: Dextrose drip, accu check, hypoglycemia protocol, hold all anti hyperglycemic medication. (5) DVT prophylaxis Current Visit: Yes Status: Acute Plan to address problem: SCD to BLE while in bed,
[2019-03-21] MEDS ORDERED: DEXTROSE 50% IN WATER (25GM) 50 ML SYRINGE IV PRN (21:53)
[2019-03-21] MEDS ORDERED: LACTULOSE ENEMA 1000 ML PR SCH (22:00)
[2019-03-21] MEDS: RIFAXIMIN 550 MG TAB PO SCH (22:55)
[2019-03-22 05:03] LABS: Calcium 7.5 mg/dL (8.4-10.2)
[2019-03-22] MEDS: POTASSIUM CHLORIDE ER 20 MEQ TAB PO SCH (11:48)
[2019-03-22] MEDS: FUROSEMIDE 40 MG TAB PO SCH (11:49)
[2019-03-22] MEDS: FAMOTIDINE 20 MG TAB PO SCH (11:49)
[2019-03-22] MEDS: RIFAXIMIN 550 MG TAB PO SCH ×2 (11:50→23:44)
--- NOTE | 2019-03-22 14:52 | Progress Note ---
Assessment and Plan /Acute Metabolic encephalopathy - improved due to hypoglycemia and hyperammonemia cont dextrose, Lactulose , frequent Neuro check, supportive care, repeat ammonia level in am / BELL (acute kidney injury) monitor uop q shift, IVF resuscitation therapy as tolerated / Cirrhosis with ascitis supportive care, serial abdominal exam. ordered parenthesis / Hypoglycemia Dextrose drip, accu check, hypoglycemia protocol, hold all anti hyperglycemic medication. place on consistent carb diet / DVT prophylaxis SCD to BLE while in bed, Brief History: 68 YO Female with HTN, DM on insulin pump, TYLER S/P TIPS, Cirrhosis presents to ED as patient was found to be confused and lethargic by her , who then ch ecked her serum glucose level and found to have a low serum glucose. EMS was notified, and upon arrival the patient was found to be confused and was given ampule of D50 and transported to [facility]. Pt seen and evaluated in ED and found to have Metabolic Encephalopathy, Acidosis, BELL, and Hyperammonemia. Pt admitted to IMCU and initiated on a Dextrose drip. Subjective Date of service: 03/22/19 Interval history: Patient seen and examined Much alert and awake now BG improved, started on diet c/o abdominal distension - no abdominal pain Objective - Constitutional Vitals: Vital Signs - 12hr 03/22/19 03/22/19 03/22/19 03:00 03:10 03:20 Temperature Pulse Rate 86 75 75 Pulse Rate [ From Monitor] Respiratory 12 14 15 Rate Blood Pressure 94/37 127/58 127/58 O2 Sat by Pulse 99 95 95 Oximetry 03/22/19 03/22/19 03/22/19 03:30 03:40 03:41 Temperature 98.1 F Pulse Rate 79 73 Pulse Rate [ From Monitor] Respiratory 18 14 Rate Blood Pressure 126/53 126/53 O2 Sat by Pulse 99 96 Oximetry 03/22/19 03/22/19 03/22/19 03:50 04:00 04:10 Temperature Pulse Rate 76 72 79 Pulse Rate [ 78 From Monitor] Respiratory 14 16 15 Rate Blood Pressure 126/53 124/45 124/45 O2 Sat by Pulse 93 98 98 Oximetry 03/22/19 03/22/19 03/22/19 04:20 04:30 04:40 Temperature Pulse Rate 72 86 81 Pulse Rate [ From Monitor] Respiratory 14 11 L 18 Rate Blood Pressure 124/45 126/61 126/61 O2 Sat by Pulse 95 100 98 Oximetry 03/22/19 03/22/19 03/22/19 04:50 05:00 05:10 Temperature Pulse Rate 74 72 81 Pulse Rate [ From Monitor] Respiratory 15 16 15 Rate Blood Pressure 126/61 119/44 126/61 O2 Sat by Pulse 95 98 98 Oximetry 03/22/19 03/22/19 03/22/19 05:20 05:30 05:40 Temperature Pulse Rate 79 85 72 Pulse Rate [ From Monitor] Respiratory 15 18 16 Rate Blood Pressure 126/61 119/44 O2 Sat by Pulse 95 98 97 Oximetry 03/22/19 03/22/19 03/22/19 05:50 06:00 06:10 Temperature Pulse Rate 76 77 78 Pulse Rate [ From Monitor] Respiratory 15 16 17 Rate Blood Pressure 104/53 119/53 119/53 O2 Sat by Pulse 96 97 98 Oximetry 03/22/19 03/22/19 03/22/19 06:20 06:30 06:40 Temperature Pulse Rate 77 84 86 Pulse Rate [ From Monitor] Respiratory 15 14 13 Rate Blood Pressure 119/53 134/60 134/60 O2 Sat by Pulse 95 99 99 Oximetry 03/22/19 03/22/19 03/22/19 06:50 07:00 07:10 Temperature Pulse Rate 83 77 81 Pulse Rate [ From Monitor] Respiratory 11 L 11 L 11 L Rate Blood Pressure 134/60 132/55 132/55 O2 Sat by Pulse 98 99 98 Oximetry 03/22/19 03/22/19 03/22/19 07:20 07:30 07:40 Temperature Pulse Rate 82 78 80 Pulse Rate [ From Monitor] Respiratory 11 L 15 14 Rate Blood Pressure 132/55 124/51 124/51 O2 Sat by Pulse 99 96 93 Oximetry 03/22/19 03/22/19 03/22/19 07:50 08:00 09:00 Temperature 97.0 F L Pulse Rate 83 73 78 Pulse Rate [ 80 From Monitor] Respiratory 14 14 15 Rate Blood Pressure 124/51 132/46 127/50 O2 Sat by Pulse 98 97 97 Oximetry 03/22/19 03/22/19 03/22/19 10:00 11:00 12:00 Temperature 98.6 F Pulse Rate 76 87 81 Pulse Rate [ 84 From Monitor] Respiratory 14 12 10 L Rate Blood Pressure 129/54 137/57 128/53 O2 Sat by Pulse 96 98 99 Oximetry 03/22/19 03/22/19 03/22/19 12:58 13:00 14:00 Temperature 98.6 F Pulse Rate 88 88 Pulse Rate [ From Monitor] Respiratory 15 14 Rate Blood Pressure 122/50 125/44 O2 Sat by Pulse 98 98 Oximetry General appearance: Present: no acute distress, obese - EENT Eyes: PERRL, EOM intact ENT: hearing intact, clear oral mucosa Ears: bilateral: normal - Neck Neck: supple, normal ROM - Respiratory Respiratory effort: normal Respiratory: bilateral: CTA - Cardiovascular Rhythm: regular Heart Sounds: Present: S1 & S2. Absent: gallop, rub Extremities: pulses intact, No edema, normal color, Full ROM - Gastrointestinal General gastrointestinal: Present: soft, non-tender, distended, normal bowel sounds - Integumentary Integumentary: clear, warm, dry - Musculoskeletal Musculoskeletal: 1, strength equal bilaterally - Neurologic Neurologic: moves all extremities - Psychiatric Psychiatric: memory intact, appropriate mood/affect, intact judgment & insight - Labs CBC & Chem 7: 03/22/19 17:43 03/22/19 04:27 Labs: Abnormal lab results 03/21/19 03/21/19 03/21/19 Range/Units 15:11 18:02 22:17 Chloride (98-107) mmol/L Carbon Dioxide (22-30) mmol/L BUN (7-17) mg/dL Creatinine (0.7-1.2) mg/dL Glucose (65-100) mg/dL POC Glucose 133 H 122 H (70-105) Hemoglobin A1c 6.9 H (4-6) % Calcium (8.4-10.2) mg/dL 03/22/19 03/22/19 03/22/19 Range/Units 00:02 02:15 04:27 Chloride 110.6 H (98-107) mmol/L Carbon Dioxide 21 L (22-30) mmol/L BUN 38 H (7-17) mg/dL Creatinine 1.6 H (0.7-1.2) mg/dL Glucose 141 H (65-100) mg/dL POC Glucose 150 H 134 H (70-105) Hemoglobin A1c (4-6) % Calcium 7.5 L (8.4-10.2) mg/dL 12/07/0603/22/19 03/22/19 Range/Units 05:34 09:57 14:04 Chloride (98-107) mmol/L Carbon Dioxide (22-30) mmol/L BUN (7-17) mg/dL Creatinine (0.7-1.2) mg/dL Glucose (65-100) mg/dL POC Glucose 151 H 145 H 238 H (70-105) Hemoglobin A1c (4-6) % Calcium (8.4-10.2) mg/dL
[2019-03-22] MEDS: INSULIN REGULAR, HUMAN 100 UNITS/1 ML SUB-Q SCH ×2 (16:50→22:30)
[2019-03-22 18:17] LABS: INR 1.07 (0.87-1.13)
[2019-03-22] MEDS ORDERED: LACTULOSE ENEMA 1000 ML PR SCH (22:00)
[2019-03-23] MEDS: INSULIN REGULAR, HUMAN 100 UNITS/1 ML SUB-Q SCH (07:40)
[2019-03-23 07:48] VITALS: BP 144/64
--- NOTE | 2019-03-23 10:54 | Ultrasound Report ---
ULTRASOUND-GUIDED PARACENTESIS HISTORY: ascitis. PROCEDURE: The risks (including but not limited to bleeding, infection, and bowel injury) and benefi ts were explained to the patient and informed consent was obtained. A time out procedure was perform ed. Ultrasound was used to evaluate the abdomen and locate the largest ascites fluid pocket. Once the sk in was marked, the procedure site was prepped and draped in the usual sterile fashion and lidocaine w as used for local anesthesia. A skin antelmo was made and a 5 Burmese centesis catheter was placed. The patient was monitored closely throughout the procedure, and a total of 5500 mL of yellow slightly cl oudy fluid was aspirated. No labs were ordered. The patient tolerated the procedure well with no complications. IMPRESSION: Successful ultrasound-guided paracentesis as described. Signer Name: Ash Pollock Jr, MD Signed: 03/23/2019 10:50 AM Workstation Name: [id number]
--- NOTE | 2019-03-23 11:02 | Discharge Summary ---
Providers - Providers Date of Admission: 03/21/19 14:13 Date of discharge: 03/23/19 Attending physician: MARCUS HENDERSON 03/21/19 21:54 Consult to Dietitian/Nutrition [CONS] Routine Physician Instructions: Reason For Exam: Reason for Consult: Diet education Primary care physician: ADITHYA FINE Hospitalization Condition: Fair Procedures: Paracentesis Hospital course: 68 YO Female with HTN, DM on insulin pump, TYLER S/P TIPS, Cirrhosis presents to ED as patient was found to be confused and lethargic by her , who then checked her serum glucose level and found to have a low serum glucose. EMS was notified, and upon arrival the patient was found to be confused and was given ampule of D50 and transported to [facility]. Pt seen and evaluated in ED and found to have Metabolic Encephalopathy, Acidosis, BELL, and Hyperammonemia. Pt admitted to IMCU and initiated on a Dextrose drip. Discharge diagnosis and mx: /Acute Metabolic encephalopathy - improved due to hypoglycemia and hyperammonemia placed on dextrose drip, given Lactulose, repeat ammonia level improved / CKD stage 3 BELL (acute kidney injury) ruled out monitored uop q shift, IVF resuscitation therapy as tolerated Cr was at her baseline / Cirrhosis with ascitis s/p paracentesis drained 5500 cc / Hypoglycemia managed with Dextrose drip, accu check, hypoglycemia protocol, held all oral anti hyperglycemic medication. place on consistent carb diet, Insulin given per mild dose SSI /hypoalbuminemia, due to hepatic cirrhosis / DVT prophylaxis SCD to BLE while in bed, Disposition: DC/TX-06 HOME UNDER HOME [facility] Time spent for discharge: 34 minutes Core Measure Documentation - Palliative Care Palliative Care/ Comfort Measures: Not Applicable - Core Measures Any of the following diagnoses?: none Exam - Physical Exam Narrative exam: General appearance: Present: no acute distress, obese - EENT Eyes: PERRL, EOM intact ENT: hearing intact, clear oral mucosa Ears: bilateral: normal - Neck Neck: supple, normal ROM - Respiratory Respiratory effort: normal Respiratory: bilateral: CTA - Cardiovascular Rhythm: regular Heart Sounds: Present: S1 & S2. Absent: gallop, rub Extremities: pulses intact, No edema, normal color, Full ROM - Gastrointestinal General gastrointestinal: Present: soft, non-tender, distended, normal bowel sounds - Integumentary Integumentary: clear, warm, dry - Musculoskeletal Musculoskeletal: 1, strength equal bilaterally - Neurologic Neurologic: moves all extremities - Psychiatric Psychiatric: memory intact, appropriate mood/affect, intact judgment & insight - Constitutional Vitals: Temp Pulse Resp BP Pulse Ox 99.7 F H 90 20 144/64 97 03/23/19 07:26 03/23/19 07:26 03/23/19 07:26 03/23/19 07:26 03/23/19 07:26 Plan Activity: advance as tolerated Weight Bearing Status: Non-Weight Bearing Diet: low fat, low salt, no red dye, no straws, no carbonated beverages Special Instructions: restrict fluid intake to (1 L perday), record blood sugar diary Follow up with: PRIMARY CARE, [Referring] - 3-5 Days GAVI NARVAEZ MD [Staff Physician] - 7 Days
[2019-03-23] MEDS: FAMOTIDINE 20 MG TAB PO SCH (11:12)
[2019-03-23] MEDS: POTASSIUM CHLORIDE ER 20 MEQ TAB PO SCH (11:13)
[2019-03-23] MEDS: FUROSEMIDE 40 MG TAB PO SCH (11:13)
[2019-03-23 11:23] LABS: Calcium 7.4 mg/dL (8.4-10.2)
--- NOTE | 2019-03-23 11:25 | Procedure Note ---
Date of procedure: 03/23/19 Pre-op diagnosis: ascites Post-op diagnosis: same Procedure: US paracentesis Findings: moderate to large ascites Anesthesia: local Surgeon: KAYE BROWN Estimated blood loss: none Pathology: none Specimen disposition: discarded Condition: stable Disposition: floor
[2019-03-23] MEDS ORDERED: PNEUMOCOCCAL 23 Valent 0.5 ML VIAL IM ONE (13:26)
[2019-03-23] MEDS ORDERED: FLU VACC QUAD 2019-20 (3 YR UP)/PF 60 MCG/0.5 ML SYRINGE IM ONE (13:28)
== END 2019-03-23 14:34 | disposition home or self-care (01) | DRG 432 ==
LOC: ED 11:00 → IMCU 14:13 → 2B-ACE 03-22 14:47
PROVIDERS: ADMIT Internal Medicine; ATTEND Internal Medicine
PROC: 0W9G3ZZ Drainage of Peritoneal Cavity, Percutaneous Approach (ICD-10-PCS; principal; 2019-03-23)
DX: K74.60 Unspecified cirrhosis of liver (principal); G93.41 Metabolic encephalopathy; E87.2 Acidosis; E72.20 Disorder of urea cycle metabolism, unspecified; R18.8 Other ascites; N18.3 Chronic kidney disease, stage 3 (moderate); I12.9 Hypertensive chronic kidney disease with stage 1 through stage 4 chronic kidney disease, or unspecified chronic kidney disease; E11.22 Type 2 diabetes mellitus with diabetic chronic kidney disease; E11.649 Type 2 diabetes mellitus with hypoglycemia without coma; Z98.51 Tubal ligation status; Z79.4 Long term (current) use of insulin
CPT/HCPCS: 36415; 49083; 80048; 80053; 82140; 82805; 82962; 83036; 84443; 85007; 85025; 85049; 85610; 90471; 90686; 90732; G0378; G0008; G0009; J1815

== ENCOUNTER 2019-04-14 07:46 | Day surgery (SDC) | payer MEDICARE ==
--- NOTE | 2019-04-14 10:19 | Short Stay Summary ---
Short Stay Documentation Date of service: 04/14/19 - History Principal diagnosis: ascites Past Medical History: liver disease - Allergies and Medications Current Medications: Allergies hydrocodone Allergy (Verified 03/21/19 11:29) Vomiting Home Medications Medication Instructions Recorded Confirmed Last Taken Type Famotidine [Pepcid] 20 mg PO DAILY #30 tablet 03/14/18 04/14/19 04/13/19 Rx Lactulose 30 ml PO BID 08/26/18 04/14/19 04/13/19 History Furosemide [Lasix TAB] 40 mg PO QDAY 10/19/18 04/14/19 04/13/19 History 1 tab Potassium Chloride [K-Dur] 20 meq PO QDAY 30 Days #30 tablet 11/11/18 04/14/19 04/13/19 Rx 1 tab Rifaximin [Xifaxan] 550 mg PO BID tablet 11/11/18 04/14/19 04/13/19 Rx 1 tab Januvia 50 mg PO DAILY 01/25/19 04/14/19 04/13/19 History 1 tab Insulin Regular, Human [HumuLIN R] 0 units SUB-Q ACHS units 03/23/19 04/14/19 04/13/19 Rx - Physical exam General appearance: no acute distress Gastrointestinal: distended - Brief post op/procedure progress note Date of procedure: 04/14/19 Pre-op diagnosis: ascites Post-op diagnosis: same Procedure: US paracentesis Anesthesia: local Findings: moderate ascites Surgeon: KAYE BROWN Estimated blood loss: none Pathology: none Specimen disposition: discarded Condition: stable - Hospital course Hospital course: uneventful - Disposition Condition at discharge: Good Disposition: DC-01 TO HOME OR SELFCARE Short Stay Discharge Plan Follow up with: ADITHYA FINE PA [Primary Care Provider] - 7 Days
--- NOTE | 2019-04-14 10:22 | Ultrasound Report ---
ULTRASOUND-GUIDED PARACENTESIS HISTORY: Ascities. PROCEDURE: The risks (including but not limited to bleeding, infection, and bowel injury) and benefi ts were explained to the patient and informed consent was obtained. A time out procedure was perform ed. Ultrasound was used to evaluate the abdomen and locate the largest ascites fluid pocket. Once the sk in was marked, the procedure site was prepped and draped in the usual sterile fashion and lidocaine w as used for local anesthesia. A skin antelmo was made and a 5 [place]i centesis catheter was placed. The patient was monitored closely throughout the procedure, and a total of 8100 mL of blood-tinged fluid was aspirated. Labs were ordered. The patient tolerated the procedure well with no complications. IMPRESSION: Successful ultrasound-guided paracentesis as described. Signer Name: Ash Pollock Jr, MD Signed: 04/14/2019 10:18 AM Workstation Name: [id number]
[2019-04-14 12:00] VITALS: BP 110/46
== END 2019-04-14 11:20 | disposition home or self-care (01) ==
LOC: CATHLABREC 07:46
PROVIDERS: ATTEND Internal Medicine Gastroenterology
DX: K70.31 Alcoholic cirrhosis of liver with ascites (principal); I12.9 Hypertensive chronic kidney disease with stage 1 through stage 4 chronic kidney disease, or unspecified chronic kidney disease; E11.22 Type 2 diabetes mellitus with diabetic chronic kidney disease; N18.9 Chronic kidney disease, unspecified; E11.01 Type 2 diabetes mellitus with hyperosmolarity with coma; D64.9 Anemia, unspecified; D69.6 Thrombocytopenia, unspecified; G93.41 Metabolic encephalopathy; E11.649 Type 2 diabetes mellitus with hypoglycemia without coma; F17.210 Nicotine dependence, cigarettes, uncomplicated; E66.9 Obesity, unspecified; Z68.37 Body mass index [BMI] 37.0-37.9, adult; Z91.19 Patient's noncompliance with other medical treatment and regimen; Z98.51 Tubal ligation status; Z79.4 Long term (current) use of insulin; Z79.899 Other long term (current) drug therapy; Z88.8 Allergy status to other drugs, medicaments and biological substances; Z80.8 Family history of malignant neoplasm of other organs or systems; Z98.890 Other specified postprocedural states; Z82.49 Family history of ischemic heart disease and other diseases of the circulatory system
CPT/HCPCS: 49083

== ENCOUNTER 2019-05-21 20:22 | Emergency (ER) | payer MEDICARE ==
[2019-05-21 21:41] LABS: Basophils # (Auto) 0.1 K/mm3 (0.0-0.1); Basophils % (Auto) 1.2 % (0.0-1.8); Eosinophils % (Auto) 0.8 % (0.0-4.3); Hemoglobin 9.1 gm/dl (10.1-14.3); Lymphocytes # (Auto) 0.8 K/mm3 (1.2-5.4); Mean Corpuscular HGB Conc 37 % (30-34); Mean Corpuscular Volume 94 fl (79-97); Monocytes # (Auto) 0.7 K/mm3 (0.0-0.8); Monocytes % (Auto) 10.6 % (0.0-7.3); Platelet Count 108 K/mm3 (140-440); Red Blood Count 2.66 M/mm3 (3.65-5.03); Red Cell Distribution Width 17.4 % (13.2-15.2)
[2019-05-21 21:51] LABS: INR 0.96 (0.87-1.13)
[2019-05-21 21:52] LABS: Partial Thromboplastin Time 32.1 Sec. (24.2-36.6)
[2019-05-21 22:03] LABS: Albumin 1.6 g/dL (3.9-5); Calcium 8.2 mg/dL (8.4-10.2)
--- NOTE | 2019-05-21 22:34 | Emergency Department Report ---
ED General Adult HPI - General Chief complaint: Abdominal Pain Stated complaint: PEDAL EDEMA/ABD PAIN Time Seen by Provider: 05/21/19 20:50 Source: EMS Mode of arrival: Stretcher Limitations: Physical Limitation - History of Present Illness Initial comments: Patient is a 68-year-old female with past medical history of cirrhosis who weekly needs paracentesis as well as diabetes chronic renal insufficiency and hypertension who is presenting with inability to ambulate. Patient's family state that she was just sent home from [facility] because her insurance ran out of rehabilitation days. States she's been unable to walk and does have some mild confusion. Family is concerned as the patient was complaining earlier need to go the bathroom however she was unable to get up and they were unable to move her themselves. Patient is denying shortness of breath nausea vomiting and cough cold or congestion at this time. Severity scale (0 -10): 8 - Related Data Home Medications Medication Instructions Recorded Confirmed Last Taken Furosemide [Lasix TAB] 40 mg PO QDAY 10/19/18 05/21/19 1 Day Ago ~04/15/19 Lantus VIAL 20 units SUB-Q HS 05/21/19 05/21/19 Unknown Lidocaine 1 patch .ROUTE DAILY 05/21/19 05/21/19 Unknown Tradjenta 5 mg PO DAILY 05/21/19 05/21/19 Unknown Previous Rx's Medication Instructions Recorded Last Taken Type Famotidine [Pepcid] 20 mg PO DAILY #30 tablet 03/14/18 1 Day Ago Rx ~04/15/19 Potassium Chloride [K-Dur] 20 meq PO QDAY 30 Days #30 tablet 11/11/18 1 Day Ago Rx ~04/15/19 Rifaximin [Xifaxan] 550 mg PO BID tablet 11/11/18 1 Day Ago Rx ~04/15/19 Insulin Regular, Human [HumuLIN R] 0 units SUB-Q ACHS units 03/23/19 1 Day Ago Rx ~04/15/19 Lactulose 30 ml PO BID #100 ml 04/21/19 Unknown Rx Allergies Allergy/AdvReac Type Severity Reaction Status Date / Time hydrocodone Allergy Vomiting Verified 03/21/19 11:29 ED Review of Systems ROS: Stated complaint: PEDAL EDEMA/ABD PAIN Other details as noted in HPI Comment: All other systems reviewed and negative ED Past Medical Hx - Past Medical History Previous Medical History?: Yes Hx Hypertension: Yes Hx Diabetes: Yes Hx Liver Disease: Yes Hx Renal Disease: Yes Hx Arthritis: No Hx Seizures: No Hx COPD: No Hx Dementia: No Hx HIV: No Additional medical history: TIPS PROCEDURE 02/2018 [facility] - Surgical History Past Surgical History?: Yes Additional Surgical History: left shoulder surgery, TUBILIGATION, paracentesis - Social History Smoking Status: Former Smoker Substance Use Type: None - Medications Home Medications: Home Medications Medication Instructions Recorded Confirmed Last Taken Type Famotidine [Pepcid] 20 mg PO DAILY #30 tablet 03/14/18 05/21/19 1 Day Ago Rx ~04/15/19 Furosemide [Lasix TAB] 40 mg PO QDAY 10/19/18 05/21/19 1 Day Ago History ~04/15/19 Potassium Chloride [K-Dur] 20 meq PO QDAY 30 Days #30 tablet 11/11/18 05/21/19 1 Day Ago Rx ~04/15/19 Rifaximin [Xifaxan] 550 mg PO BID tablet 11/11/18 05/21/19 1 Day Ago Rx ~04/15/19 Insulin Regular, Human [HumuLIN R] 0 units SUB-Q ACHS units 03/23/19 05/21/19 1 Day Ago Rx ~04/15/19 Lactulose 30 ml PO BID #100 ml 04/21/19 05/21/19 Unknown Rx Lantus VIAL 20 units SUB-Q HS 05/21/19 05/21/19 Unknown History Lidocaine 1 patch .ROUTE DAILY 05/21/19 05/21/19 Unknown History Tradjenta 5 mg PO DAILY 05/21/19 05/21/19 Unknown History ED Physical Exam - General Limitations: Physical Limitation General appearance: alert, in no apparent distress - Head Head exam: Present: atraumatic, normocephalic - Eye Eye exam: Present: normal appearance - ENT ENT exam: Present: mucous membranes moist - Neck Neck exam: Present: normal inspection - Respiratory Respiratory exam: Present: normal lung sounds bilaterally. Absent: respiratory distress, wheezes, rales, rhonchi - Cardiovascular Cardiovascular Exam: Present: regular rate, normal rhythm. Absent: systolic murmur, diastolic murmur, rubs, gallop - GI/Abdominal GI/Abdominal exam: Present: distended, normal bowel sounds. Absent: tenderness, guarding, rebound - Extremities Exam Extremities exam: Present: normal inspection, other (patient with 2+ edema to the upper thighs) - Back Exam Back exam: Present: normal inspection - Neurological Exam Neurological exam: Present: alert, oriented X3 - Psychiatric Psychiatric exam: Present: normal affect, normal mood - Skin Skin exam: Present: warm, dry, intact, normal color. Absent: rash ED Course Vital Signs 05/21/19 20:31 Temperature 98 F Pulse Rate 96 H Respiratory 14 Rate Blood Pressure 138/63 Blood Pressure 138/63 [Left] O2 Sat by Pulse 99 Oximetry - Reevaluation(s) Reevaluation #1: 05/21/19 22:34 Patient was found to have an elevated ammonia level. Patient given a dose of lactulose. ED Medical Decision Making - Lab Data Result diagrams: 05/21/19 21:17 05/21/19 21:17 Lab Results 05/21/19 05/21/19 05/21/19 Range/Units 21:17 21:17 21:17 WBC 6.3 (4.5-11.0) K/mm3 RBC 2.66 L (3.65-5.03) M/mm3 Hgb 9.1 L (10.1-14.3) gm/dl Hct 25.0 L (30.3-42.9) % MCV 94 (79-97) fl MCH 34 H (28-32) pg MCHC 37 H (30-34) % RDW 17.4 H (13.2-15.2) % Plt Count 108 L (140-440) K/mm3 Lymph % (Auto) 13.0 L (13.4-35.0) % Pine % (Auto) 10.6 H (0.0-7.3) % Eos % (Auto) 0.8 (0.0-4.3) % Baso % (Auto) 1.2 (0.0-1.8) % Lymph # 0.8 L (1.2-5.4) K/mm3 Pine # 0.7 (0.0-0.8) K/mm3 Eos # 0.0 (0.0-0.4) K/mm3 Baso # 0.1 (0.0-0.1) K/mm3 Seg Neutrophils % 74.4 H (40.0-70.0) % Seg Neutrophils # 4.7 (1.8-7.7) K/mm3 PT 12.9 (12.2-14.9) Sec. INR 0.96 (0.87-1.13) APTT 32.1 (24.2-36.6) Sec. Sodium 138 (137-145) mmol/L Potassium 4.5 (3.6-5.0) mmol/L Chloride 107.8 H (98-107) mmol/L Carbon Dioxide 16 L (22-30) mmol/L Anion Gap 19 mmol/L BUN 52 H (7-17) mg/dL Creatinine 1.6 H (0.7-1.2) mg/dL Estimated GFR 32 ml/min BUN/Creatinine Ratio 33 % Glucose 222 H (65-100) mg/dL Calcium 8.2 L (8.4-10.2) mg/dL Total Bilirubin 1.40 H (0.1-1.2) mg/dL AST 29 (5-40) units/L ALT 18 (7-56) units/L Alkaline Phosphatase 271 H (35-129) units/L Ammonia (25-60) umol/L Total Protein 5.9 L (6.3-8.2) g/dL Albumin 1.6 L (3.9-5) g/dL Albumin/Globulin Ratio 0.4 % Lipase 6 L (13-60) units/L /05/09 Range/Units 21:17 WBC (4.5-11.0) K/mm3 RBC (3.65-5.03) M/mm3 Hgb (10.1-14.3) gm/dl Hct (30.3-42.9) % MCV (79-97) fl MCH (28-32) pg MCHC (30-34) % RDW (13.2-15.2) % Plt Count (140-440) K/mm3 Lymph % (Auto) (13.4-35.0) % Pine % (Auto) (0.0-7.3) % Eos % (Auto) (0.0-4.3) % Baso % (Auto) (0.0-1.8) % Lymph # (1.2-5.4) K/mm3 Pine # (0.0-0.8) K/mm3 Eos # (0.0-0.4) K/mm3 Baso # (0.0-0.1) K/mm3 Seg Neutrophils % (40.0-70.0) % Seg Neutrophils # (1.8-7.7) K/mm3 PT (12.2-14.9) Sec. INR (0.87-1.13) APTT (24.2-36.6) Sec. Sodium (137-145) mmol/L Potassium (3.6-5.0) mmol/L Chloride (98-107) mmol/L Carbon Dioxide (22-30) mmol/L Anion Gap mmol/L BUN (7-17) mg/dL Creatinine (0.7-1.2) mg/dL Estimated GFR ml/min BUN/Creatinine Ratio % Glucose (65-100) mg/dL Calcium (8.4-10.2) mg/dL Total Bilirubin (0.1-1.2) mg/dL AST (5-40) units/L ALT (7-56) units/L Alkaline Phosphatase (35-129) units/L Ammonia 108.0 H (25-60) umol/L Total Protein (6.3-8.2) g/dL Albumin (3.9-5) g/dL Albumin/Globulin Ratio % Lipase (13-60) units/L Patient's renal function is at her baseline - Medical Decision Making Patient is a 68-year-old ethnic female who is presenting with inability to ambulate. Patient according the family has not been able to ambulate well for almost 2 years. She's been home from [facility] for 1 day and states that they cannot take care of her. Her daughter states that she's been confused. The patient seems very lucid and is responding to questions appropriately. Patient will be given 1 dose of lactulose for a slightly elevated ammonia level. Patient's had multiple ammonia levels higher than the ammonia level today. Again patient is lucid. Discussed with the family that the patient is not meeting inpatient criteria at this time. I gave him the option to wait until Thursday to see our social work coordinator. At best a social work coordinator may be of set up in-house nursing care. Patient's family states that this was R to set up and is not due to be done for several more days. Also suggested that they have a consultation with hospice. Patient's daughter is of very willing to talk with hospice. The [facility] has been consulted at this time. Critical care attestation.: If time is entered above; I have spent that time in minutes in the direct care of this critically ill patient, excluding procedure time. ED Disposition Condition: Stable Instructions: Abdominal Pain (ED) Referrals: PRIMARY CARE, [Primary Care Provider] - 3-5 Days
[2019-05-21 22:38] LABS: Bacteria,Urine 3+ /HPF (Negative); Bilirubin,Urine NEG (Negative); Blood,Urine SM (Negative); Color,Urine Amber (Yellow); Mucus,Urine FEW /HPF; Protein,Urine <15 mg/dL mg/dL (Negative); WBC,Urine > 182.0 /HPF (0.0-6.0)
[2019-05-21] MEDS: LACTULOSE 20 GM/30 ML ORAL LIQD PO ONE ×2 (23:04→23:10)
[2019-05-22 12:27] VITALS: BP 125/61
== END 2019-05-22 13:10 | disposition home or self-care (01) ==
LOC: ED 20:22
DX: R10.9 Unspecified abdominal pain (principal); R60.9 Edema, unspecified
CPT/HCPCS: 36415; 80053; 81001; 82140; 83690; 85025; 85610; 85730